=== PATIENT | male | born 1950 | race Caucasian/White ===

== ENCOUNTER → 2016-08-04 | Day surgery (SDC) | payer MEDICARE, OTHER ==
[~2016-08-04] MED LIST: ACET325T9 PO; ASCO10002 PO; CARV6.252 PO; CEPH-264 PO; CHOL400T4 PO; CHOL500050 PO; CYAN10005 PO; CYCL5TAB PO; ERGO500012 PO; FERR-26 PO; FERR325T31 PO; FURO40TA4 PO; HYDR-965 PO; HYDR-971 PO; HYDR1TAB10 PO; IV RINGERS,LACTATED 1000ML 1,000 ML IV SCH; MUPI15CR TP; NAPH1POW2 PO; OXYC5TAB PO; PANT40TA3 PO; PANT40TA5 PO; PROPOFOL 20 ML IV ONE; SODIUM TETRADECYL SULFATE IV ONE; SPIR25TA PO; SUCR1TAB29 PO; VITA200C PO; VITA80003 PO; ZINC50TA33 PO
--- NOTE | 2016-08-04 10:49 | PDOC1 ---
HISTORY & PHYSICAL H&P Jett Feliciano [id number] 1950 07/23/2016 02:20 PM 06/15 [place] [employer] [facility], [facility] OUR PATIENTS COME FIRST [address] [place] [id number] Ph. [phone] Patient: Jett Feliciano Date of : 1950 Date: 07/23/2016 2:20 PM Historian: significant other Visit Type: Consult This 66 year old male presents for Esophageal Varices. History of Present Illness: 1. Esophageal Varices Patient has been followed at [place] for liver transplant. Was recommended to have follow up for esophageal varices. Was treated with Band ligation in last June. No complain now. INTAKE COMMENTS: Intake Comments: Nurses Notes: Pt is here today for a recall EGD. Pt last EGD was 03/2015. pt does have a history of Colon Cancer. 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 2012 Esophageal varices Thrombocytopenia DIAGNOSTICS HISTORY: Test Ordered Interpretation Result completed Colonoscopy 03/15/2005 Normal Polyp 03/15/2005 Colonoscopy 03/15/2006 Abnormal Mass, Polyp 03/15/[address] 08/13/2006 Normal Chest, Abdomen & Pelvis 08/13/2006 Test Ordered Ordering Comments Modifier Colonoscopy 03/15/2005 Gastroenterology Colonoscopy 03/15/[address] 08/13/2006 Diagnostic Images Medications (Active): Started Medication Directions Instruction Stopped 08/02/2013 ergocalciferol (vitamin D2) 50,000 unit capsule take 1 by Oral route twice a week 08/02/2013 iron ER 325 mg (65 mg iron) capsule,extended release take 1 Tablet by Oral route three times a day 03/27/2016 Lasix 40 mg tablet take 1 tablet by oral route every day 06/02/2016 [place] 7.5 mg-325 mg tablet take 1 tablet by ORAL route 2 times every day as needed for pain 10/22/2015 Phos-NaK 280 mg-160 mg-250 mg oral powder packet Mix one packet in liquid and drink twice daily 09/22/2014 potassium chloride ER 20 mEq tablet,extended release take 1 tablet by oral route 2 times every day with food 07/16/2016 Protonix 40 mg tablet,delayed release TAKE ONE TABLET BY MOUTH ONCE DAILY 01/25/2014 Saline Solution as directed 07/16/2016 Ventolin HFA 90 mcg/actuation aerosol inhaler inhale 2 puff by Inhalation route every 4 - 6 hours as needed 03/27/2016 vitamin A 8,000 unit capsule take 1 capsule by oral route every day vitamin B12 1,000 mcg-folic acid 400 mcg sublingual tablet 01/25/2014 Vitamin C 1,000 mg tablet take 1 by Oral route every day 03/27/2016 Vitamin D3 1,000 unit tablet take 1 tablet by mouth daily 08/02/2013 vitamin E 400 unit capsule take 1 by Oral route every day 03/27/2016 zinc gluconate 50 mg tablet take 1 tablet by mouth daily Allergies: Ingredient Reaction Medication Name Comment NO KNOWN ALLERGIES REVIEW OF SYSTEMS System Neg/Pos Details Constitutional Negative Chills, fever, malaise and weight loss. ENMT Negative Sore throat. Eyes Negative Double vision. Respiratory Negative Dyspnea and wheezing. Cardio Negative Chest pain and irregular heartbeat/palpitations. GI Positive See HPI. GI Negative See HPI. Negative Dysuria and hematuria. Endocrine Negative Cold intolerance and heat intolerance. Psych Negative Anxiety. Integumentary Negative Hives and rash. MS Negative Joint pain. Hank/Lymph Negative Easy bleeding and easy bruising. Allergic/Immuno Negative Food allergies. VITAL SIGNS Time BP mm/Hg Pulse /min Resp /min Temp F Ht ft Ht in Ht cm Wt lb Wt kg BMI kg/ m2 BSA m2 O2 Sat% 2:21 PM 82 16 97.6 5.0 5.00 165.10 160.60 72.847 26.72 95 Time Measured by 2:21 PM Talya Major PHYSICAL EXAM: Exam Findings Details Constitutional Normal Well developed. Eyes Normal Conjunctiva - Right: Normal, Left: Normal. Sclera - Right: Normal, Left: Normal. Nasopharynx Normal Lips/teeth/gums - Normal. Neck Exam Normal Inspection - Normal. Thyroid gland - Normal. Respiratory Normal Inspection - Normal. Auscultation - Normal. Cardiovascular Normal Regular rate and rhythm. No murmurs, gallops, or rubs. Vascular Normal Pulses - Carotids: Normal, Femoral: Normal, Dorsalis pedis: Normal. Abdomen Normal Inspection - Normal. Anterior palpation - No guarding. No abdominal tenderness. No hepatic enlargement. No splenic enlargement. No hernia. No ascites. Skin Normal Inspection - Normal. Extremity Normal No edema. Psychiatric * Oriented to time, place, person and situation. Psychiatric Normal Appropriate mood and effect. Assessment/Plan # Detail Type Description 1. Assessment Other cirrhosis of liver (K74.69). 2. Assessment Secondary esophageal varices without bleeding (I85.10). Patient Plan schedule EGD at [facility] Plan Orders Further diagnostic evaluations ordered today include(s) EGD to be performed today. He is to schedule a follow-up visit with Abner Wiley MD upon completion of work-up Electronically signed by: Abner Wiley MD 07/23/2016 05:16 PM Document generated by: Abner Wiley 07/23/2016 05:16 PM Nikolay Bar MD, Family Practice; Quinten Cardenas MD Internal Medicine; Bryan Soria MD, Internal Medicine; Jose De Jesus Wiley MD Internal Medicine; Abner Wiley MD, Gastroenterology; Keaton Willson MD, Rheumatology, S. Andrew Morgan, Physical Medicine/Handyab Rainer Green APRN ------ 08/04/16 Patient seen and examined. No change in H&P. ABNER WILEY MD Aug 04, 2016 10:49
--- NOTE | 2016-08-04 11:00 | PDOC4 ---
GI OP Report - Dr. De Luna Date/Time DATE: 08/04/16 TIME: 10:50 Attending Physician Abner De Luna MD Referring Physician Indications Follow-up of esophageal varices Pre-Op See the Anesthesia note for documentation of the administered medications Procedures Upper GI endoscopy with band ligation Findings - Grade II esophageal varices. completely eradicated. Banded. - Gastritis. - Normal examined duodenum. - No specimens collected. Plan - Discharge patient to home. - Resume regular diet. - Continue present medications. - Repeat the upper endoscopy in 4 weeks for endoscopic band ligation. ABNER DE LUNA MD Aug 04, 2016 11:00
[2016-08-04 11:10] VITALS: BP 132/63
== END | disposition home or self-care (01) ==
LOC: ENDOS 09:32
PROVIDERS: ATTEND Internal Medicine Gastroenterology
DX: I85.00 Esophageal varices without bleeding (principal); K29.70 Gastritis, unspecified, without bleeding; J44.9 Chronic obstructive pulmonary disease, unspecified; K21.9 Gastro-esophageal reflux disease without esophagitis; D64.9 Anemia, unspecified; Z87.01 Personal history of pneumonia (recurrent); Z87.891 Personal history of nicotine dependence; Z85.038 Personal history of other malignant neoplasm of large intestine
CPT/HCPCS: 43244; J2704

== ENCOUNTER → 2016-09-17 | Outpatient (CLI) | payer MEDICARE, OTHER ==
[2016-09-12 07:19] VITALS: BP 140/66
[~2016-09-17] MED LIST changes: +IOHEXOL 300 MG/ML 100ML VIAL. IV ONE; -IV RINGERS,LACTATED 1000ML 1,000 ML IV SCH; -PROPOFOL 20 ML IV ONE; -SODIUM TETRADECYL SULFATE IV ONE
--- NOTE | 2016-09-17 09:13 | KCIC ---
PQRS STATEMENT One or more of the following individualized dose reduction techniques were utilized for this study: 1.Automated exposure control 2.Adjustment of the mA and/or kV according to patient size 3.Use of iterative reconstruction technique CT NECK WITH CONTRAST HISTORY:Reason For Study Reason: CANCER OF EXTERNAL EAR, RT SIDE / Spl. Instructions: 95cc Omni 300 -pt premedicated, Hx colon CA and melanoma / History: COMPARISON: None TECHNIQUE: 2.5 mm contiguous axial images were obtained from the region of the paranasal sinuses through the thoracic inlet after the administration of iodinated intravenous contrast material. Additional sagittal and coronal reconstructions were performed. FINDINGS: There is abnormal soft tissue thickening just anterior to the external auditory canal. This area of soft tissue thickening measures 3.1 centimeters AP by 1.2 centimeters transverse by 3.2 centimeters craniocaudal. The mass approaches the superior margin of the right parotid gland. Posteriorly, the mass appears to approach the wall of the external auditory canal. There is no adenopathy. Visualized intra cranial contents show no obvious abnormality. Globes and orbits are within normal limits. Paranasal sinuses and mastoid air cells are clear. Submandibular glands and thyroid are within normal limits. Lung apices are clear. There are carotid artery calcifications bilaterally. Impression: - There is a 3.1 x 1.2 x 3.2 centimeter mass just anterior to the right ear. No cervical adenopathy is appreciated. Electronically signed by: Abebe Patrick (Sep 17, 2016 09:12:02)
== END | disposition home or self-care (01) ==
LOC: KCIC CT 08:09
PROVIDERS: ATTEND Otolaryngology
DX: C44.222 Squamous cell carcinoma of skin of right ear and external auricular canal (principal)
CPT/HCPCS: 70491; Q9967; 82565

== ENCOUNTER 2016-10-22 16:40 | Emergency (ER) | payer MEDICARE, OTHER ==
[~2016-10-22] VITALS: Ht 167.6 cm; Wt 69.9 kg
[~2016-10-22 16:40] MED LIST changes: -IOHEXOL 300 MG/ML 100ML VIAL. IV ONE
[2016-10-22] MEDS ORDERED: OXYC5TAB PO (17:14)
[2016-10-22] MEDS ORDERED: ONDA4TAB10 PO (17:14)
--- NOTE | 2016-10-22 17:14 | PHYS DOC ---
Past Medical History Past Medical History: Cancer, Liver Disease Additional Past Medical Histor: MULTIPLE BLEEDING STOMACH ULCERS, esoph varices , Past Surgical History: Cancer Surgery Additional Past Surgical Histo: COLON RESECTION, COLON REMOVAL, ILEOSTOMY, NOSE REBUILT AFTER A CARCINOMA Alcohol Use: None Drug Use: None Adult General Chief Complaint Chief Complaint: NAUSEA/VOMITING/DIARRHA HPI HPI Patient is a 66 year old male presenting to the emergency department for evaluation of dry heaving and intermittent back pain when he has the dry heaving sensation. He says this has been going on for 2-3 days he says it is mostly associated with taking his Levaquin. He is taking Levaquin for a skin cellulitis on his right jaw/mastoid area. He had skin surgery several weeks ago and the cultures came back and [facility] placed him on Levaquin. He says that he has been taking for 7 days and he is supposed to take it 3 more days but cannot tolerate it any longer. He denies any fevers chills chest pain shortness of breath diaphoresis or vomiting. He is in no obvious distress with normal vital signs. Review of Systems Review of Systems Constitutional: Denies fever or chills [] Respiratory: Denies cough or shortness of breath [] Cardiovascular: No additional information not addressed in HPI [] GI: Denies abdominal pain. + nausea. No vomiting, bloody stools or diarrhea [] : Denies dysuria or hematuria [] Musculoskeletal: + back pain. No joint pain [] Current Medications Current Medications Current Medications Medications (Trade) Dose Ordered Sig/Hari Start Time Stop Time Status Last Admin Dose Admin Ceftriaxone Sodium (Rocephin Im) 1 gm 1X ONCE 10/22/16 17:15 10/22/16 17:16 DC Ondansetron HCl (Zofran Odt) 8 mg 1X ONCE 10/22/16 17:15 10/22/16 17:16 DC Oxycodone HCl (Roxicodone) 5 mg 1X ONCE 10/22/16 17:15 10/22/16 17:16 DC Allergies Allergies Allergies Coded Allergies Type Severity Reaction Last Updated Verified Iodinated Contrast Media - Oral and Allergy Severe Hives, PT OK WITH PREMED Yes lactose Allergy Intermediate 09/12/16 Yes acetaminophen Adverse Reaction Severe bleeding 09/12/16 Yes ibuprofen Adverse Reaction Severe bleeding 09/12/16 Yes Physical Exam Physical Exam Constitutional: Well developed, well nourished, no acute distress, non-toxic appearance. [] Cardiovascular:Heart rate regular rhythm, no murmur [] Lungs & Thorax: Bilateral breath sounds clear to auscultation [] Abdomen: Bowel sounds normal, soft, no tenderness, no masses, no pulsatile masses. [] Skin: Right sided facial plastic surgery area with no obvious warmth tenderness or drainage. There is no active cellulitis Back: No tenderness, no CVA tenderness. Current Patient Data Vital Signs Vital Signs Date Time Temp Pulse Resp B/P (MAP) Pulse Ox O2 Delivery O2 Flow Rate FiO2 10/22/16 16:52 98.0 80 16 164/74 (104) 98 Room Air 98.0 EKG EKG [] Radiology/Procedures Radiology/Procedures [] Course & Med Decision Making Course & Med Decision Making Patient with normal vital signs and appears quite well and is just having some side effects from the medications he is on. I told him to go ahead and stop the medication for now but contact his physicians at [facility] and I will give him a dose of IM Rocephin and then treat him with oxycodone for pain and Zofran for nausea. Patient aware and agreeable with plan for discharge and verbalized understanding of the need for short-term follow-up and strict ER return precautions discussed, worsening pain fevers vomiting or other general concerns. Dragon Disclaimer Dragon Disclaimer This electronic medical record was generated, in whole or in part, using a voice recognition dictation system. Departure Departure Impression: Primary Impression: Nausea alone Disposition: 01 HOME, SELF-CARE Condition: GOOD Referrals: KAMRYN PADGETT (PCP) Patient Instructions: Nausea, Adult Scripts Oxycodone Hcl (OXYCODONE HCL) 5 Mg Tablet 1 TAB PO TID Y for PAIN, #20 TAB Prov: ABEL GRIFFIN DO 10/22/16 Ondansetron (ZOFRAN ODT) 4 Mg Tab.rapdis 4 MG PO BID Y for NAUSEA/VOMITING, #20 TAB Prov: ABEL GRIFFIN DO 10/22/16 ABEL GRIFFIN DO October 22, 2016 17:14
[2016-10-22] MEDS ORDERED: ONDANSETRON ODT 4 MG TAB.RAPDIS. PO ONE (17:15)
[2016-10-22] MEDS ORDERED: oxyCODONE IR 5 MG TABLET PO ONE (17:15)
[2016-10-22] MEDS ORDERED: cefTRIAXone IM 1 GM VIAL IM ONE (17:15)
[2016-10-22 18:07] VITALS: BP 147/71
== END 2016-10-22 18:20 | disposition home or self-care (01) ==
LOC: ER 16:40
DX: R11.0 Nausea (principal); T37.8X5A Adverse effect of other specified systemic anti-infectives and antiparasitics, initial encounter; M54.9 Dorsalgia, unspecified; Z88.6 Allergy status to analgesic agent; Z91.041 Radiographic dye allergy status; Z91.011 Allergy to milk products; Y92.89 Other specified places as the place of occurrence of the external cause
CPT/HCPCS: 96372; 99283; J0696; Q0162

== ENCOUNTER 2016-11-28 08:50 | Observation (INO) | payer MEDICARE, OTHER ==
[~2016-11-28] VITALS: Ht 167.6 cm; Wt 61.8 kg
[~2016-11-28 08:50] MED LIST changes: -CHOL400T4 PO; +CHOL400T55 PO; -ERGO500012 PO; +ERGO500027 PO; +FERR-36 PO; -FERR325T31 PO; +ONDA4TAB10 PO; -SUCR1TAB29 PO; +SUCR1TAB35 PO
[2016-11-28 09:24] LABS: BILIRUBIN,URINE NEGATIVE (NEG); GLUCOSE,URINE NEGATIVE (NEG); NITRITE,URINE NEGATIVE (NEG); PROTEIN,URINE NEGATIVE (NEG-TRACE); UROBILINOGEN,URINE 0.2 mg/dL (0.2 mg/dL)
[2016-11-28 09:35] LABS: BASO % 1 % (0-3); EOS % 2 % (0-3); HEMATOCRIT 30.1 % (39.0-53.0); HEMOGLOBIN 9.8 g/dL (13.0-17.5); LYMPH # 0.3 x10^3/uL (1.0-4.8); LYMPH % 12 % (24-48); MEAN CORPUSCULAR HEMOGLOBIN 31 pg (25-35); MEAN CORPUSCULAR HGB CONC 33 g/dL (31-37); MEAN CORPUSCULAR VOLUME 94 fL (79-100); MONO % 7 % (0-9); NEUT % 78 % (31-73); PLATELET COUNT 26 x10^3/uL (140-400); RED BLOOD COUNT 3.21 x10^6/uL (4.30-5.70); WHITE BLOOD COUNT 2.4 x10^3/uL (4.0-11.0)
[2016-11-28] MEDS ORDERED: HYDROmorphone 2 MG/ML VIAL IV PRN (09:45)
[2016-11-28] MEDS ORDERED: ONDANSETRON PF 4 MG/2 ML VIAL. IV ONE (09:45)
[2016-11-28 09:47] LABS: BACTERIA,URINE 0 /HPF (0-FEW); RBC,URINE 0 /HPF (0-2); SQUAMOUS EPITHELIAL CELL,UR FEW /LPF; WBC,URINE 0 /HPF (0-4)
[2016-11-28 10:00] LABS: CALCIUM 8.3 mg/dL (8.5-10.1); CREATININE 1.2 mg/dL (0.7-1.3); GFR 60.4; POTASSIUM 3.5 mmol/L (3.5-5.1)
--- NOTE | 2016-11-28 10:01 | EKG ---
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
[2016-11-28 10:07] LABS: ALBUMIN 2.2 g/dL (3.4-5.0); ALBUMIN/GLOBULIN RATIO 0.6 (1.0-1.7); TOTAL BILIRUBIN 1.3 mg/dL (0.2-1.0); TOTAL PROTEIN 6.1 g/dL (6.4-8.2)
--- NOTE | 2016-11-28 10:24 | PHYS DOC ---
Past Medical History Past Medical History: Cancer, COPD, Liver Disease Additional Past Medical Histor: MULTIPLE BLEEDING STOMACH ULCERS, esoph varices , Past Surgical History: Cancer Surgery Additional Past Surgical Histo: COLON RESECTION, ILEOSTOMY, NOSE REBUILT AFTER A CARCINOMA Alcohol Use: None Drug Use: None Adult General Chief Complaint Chief Complaint: NAUSEA/VOMITING/DIARRHA HPI HPI 66-year-old male presenting to the emergency department today with epigastric abdominal pain that started yesterday. It is nonradiating intermittent mildly alleviated by Zofran. He chronically takes IV infusions every day 2 L of saline with potassium. He also has a history of skin cancer for which she is currently undergoing organization of probable chemotherapy and possible surgery. He has a history of cirrhosis and esophageal varices but denies blood in his stools or vomiting. Review of systems is negative for chest pain shortness of breath fevers chills. All other review of systems is negative unless otherwise noted in history of present illness. Pertinent physical exam findings demonstrated a mildly cachectic male with a ulceration on the right temporal region that he reports is his squamous skin cell cancer. Abdomen has an ileostomy and the patient reports a history of colectomy. Abdomen is soft and nontender otherwise. Lungs are clear to auscultation bilaterally. Otherwise unremarkable exam. ED course: 66-year-old gentleman with history of squamous cell carcinoma and status post colectomy who presents the emergency department with epigastric abdominal pain. Afebrile with a normal pulse on examination and triage. Blood work shows leukopenia with anemia. Urinalysis unremarkable. FOB neg. CT abd shows effusion. Patient is not hypoxic and is not short of breath either. Mainly epigastric abdominal pain. The patient was then admitted for further evaluation workup and care. I discussed the case with the patient's primary care physician Dr. Soria. At this point in time, the patient does not meet inpatient criteria. GI consult placed. Review of Systems Review of Systems SEE ABOVE. Current Medications Current Medications Current Medications Medications (Trade) Dose Ordered Sig/Hari Start Time Stop Time Status Last Admin Dose Admin Hydromorphone HCl (Dilaudid) 0.5 mg PRN Q1HR PRN 11/28/16 09:45 11/28/16 09:49 0.5 MG Ondansetron HCl (Zofran) 4 mg 1X ONCE 11/28/16 09:45 11/28/16 09:46 DC 11/28/16 09:48 4 MG Allergies Allergies Allergies Coded Allergies Type Severity Reaction Last Updated Verified Iodinated Contrast Media - Oral and Allergy Severe Hives, PT OK WITH PREMED Yes lactose Allergy Intermediate 09/12/16 Yes acetaminophen Adverse Reaction Severe bleeding 09/12/16 Yes ibuprofen Adverse Reaction Severe bleeding 09/12/16 Yes Physical Exam Physical Exam Constitutional: Well developed, no acute distress, non-toxic appearance. HENT: Normocephalic, atraumatic, bilateral external ears normal, oropharynx moist, no oral exudate. See above Eyes: PERRLA, EOMI, conjunctiva normal, no discharge. Neck: Normal range of motion, no tenderness, supple, no stridor. [] Cardiovascular:Heart rate regular rhythm, no murmur Lungs & Thorax: Bilateral breath sounds clear to auscultation [] Abdomen: Bowel sounds normal, soft, no tenderness, no masses, no pulsatile masses. Colectomy present with normal consistency stool present. Skin: Warm, dry, no erythema, no rash. Back: No tenderness, no CVA tenderness. [] Extremities: No tenderness, no cyanosis, no clubbing, ROM intact, no edema. Neurologic: Alert and oriented X 3, normal motor function, normal sensory function, no focal deficits noted. Psychologic: Affect normal, judgement normal, mood normal. [] Current Patient Data Vital Signs Vital Signs Date Time Temp Pulse Resp B/P (MAP) Pulse Ox O2 Delivery O2 Flow Rate FiO2 11/28/16 08:59 97.8 81 18 158/77 (104) 96 Room Air 97.8 Lab Values Laboratory Tests Test 11/28/16 09:10 11/28/16 09:15 Urine Collection Type Unknown Urine Color Yellow Urine Clarity Clear Urine pH 5.0 Urine Specific [place] 1.010 Urine Protein Negative mg/dL (NEG-TRACE) Urine Glucose (UA) Negative mg/dL (NEG) Urine Ketones (Stick) Negative mg/dL (NEG) Urine Blood Negative (NEG) Urine Nitrite Negative (NEG) Urine Bilirubin Negative (NEG) Urine Urobilinogen Dipstick 0.2 mg/dL (0.2 mg/dL) Urine Leukocyte Esterase Negative (NEG) Urine RBC 0 /HPF (0-2) Urine WBC 0 /HPF (0-4) Urine Squamous Epithelial Cells Few /LPF Urine Bacteria 0 /HPF (0-FEW) Urine Mucus Mod /LPF White Blood Count 2.4 x10^3/uL (4.0-11.0) L Red Blood Count 3.21 x10^6/uL (4.30-5.70) L Hemoglobin 9.8 g/dL (13.0-17.5) L Hematocrit 30.1 % (39.0-53.0) L Mean Corpuscular Volume 94 fL (79-100) Mean Corpuscular Hemoglobin 31 pg (25-35) Mean Corpuscular Hemoglobin Concent 33 g/dL (31-37) Red Cell Distribution Width 17.0 % (11.5-14.5) H Platelet Count 26 x10^3/uL (140-400) L Neutrophils (%) (Auto) 78 % (31-73) H Lymphocytes (%) (Auto) 12 % (24-48) L Monocytes (%) (Auto) 7 % (0-9) Eosinophils (%) (Auto) 2 % (0-3) Basophils (%) (Auto) 1 % (0-3) Neutrophils # (Auto) 1.9 x10^3uL (1.8-7.7) Lymphocytes # (Auto) 0.3 x10^3/uL (1.0-4.8) L Monocytes # (Auto) 0.2 x10^3/uL (0.0-1.1) Eosinophils # (Auto) 0.0 x10^3/uL (0.0-0.7) Basophils # (Auto) 0.0 x10^3/uL (0.0-0.2) Segmented Neutrophils % 76 % (35-66) H Band Neutrophils % 4 % (0-9) Lymphocytes % 11 % (24-48) L Monocytes % 9 % (0-10) Platelet Estimate Decreased (ADEQUATE) Large Platelets Present Sodium Level 141 mmol/L (136-145) Potassium Level 3.5 mmol/L (3.5-5.1) Chloride Level 108 mmol/L (98-107) H Carbon Dioxide Level 27 mmol/L (21-32) Anion Gap 6 (6-14) Blood Urea Nitrogen 8 mg/dL (8-26) Creatinine 1.2 mg/dL (0.7-1.3) Estimated GFR (Cockcroft-Gault) 60.4 BUN/Creatinine Ratio 7 (6-20) Glucose Level 130 mg/dL (70-99) H Calcium Level 8.3 mg/dL (8.5-10.1) L Total Bilirubin 1.3 mg/dL (0.2-1.0) H Aspartate Amino Transferase (AST) 21 U/L (15-37) Alanine Aminotransferase (ALT) 11 U/L (16-63) L Alkaline Phosphatase 67 U/L (46-116) Troponin I Quantitative 0.029 ng/mL (0.000-0.055) Total Protein 6.1 g/dL (6.4-8.2) L Albumin 2.2 g/dL (3.4-5.0) L Albumin/Globulin Ratio 0.6 (1.0-1.7) L Lipase 103 U/L (73-393) Laboratory Tests 11/28/16 09:15 Laboratory Tests 11/28/16 09:15 EKG EKG [] EKG shows sinus rhythm with a regular rate. T-wave inversion in lead 3 and lead V1. Nonspecific. ST segments congruent. Reviewed by myself. Radiology/Procedures Radiology/Procedures [] Course & Med Decision Making Course & Med Decision Making Pertinent Labs and Imaging studies reviewed. (See chart for details) [] Dragon Disclaimer Dragon Disclaimer This electronic medical record was generated, in whole or in part, using a voice recognition dictation system. Departure Departure Impression: Primary Impression: Nausea & vomiting Additional Impressions: Squamous cell cancer of skin of right cheek History of colectomy Disposition: ADMITTED INPATIENT Admitting Physician: Bryan Soria Condition: STABLE Referrals: KAMRYN PADGETT (PCP) Problem Qualifiers ADIEL GALLO MD Nov 28, 2016 10:24
[2016-11-28] MEDS ORDERED: ONDANSETRON PF 4 MG/2 ML VIAL. IV PRN (10:30)
[2016-11-28] MEDS ORDERED: IV NORMAL SALINE 500ML BAG 500 ML IV ONE (10:30)
--- NOTE | 2016-11-28 10:43 | ACF ---
Admission Forms Criteria VOMITING Clinical Indications for Admission to Inpatient Care ( Place 'X' for any and all applicable criteria): Admission is indicated for 1 or more of the following(1)(2)(3): [ ]I. Complete or partial gastrointestinal obstruction [ ]II. Vomiting due to significant metabolic derangement (eg, severe hypercalcemia, diabetic ketoacidosis) [ ]III. Other cause of vomiting requiring hospitalization (eg, poisoning, increased intracranial pressure) [X]IV. Inpatient admission required rather than observation care because of 1 or more of the following [ ]i) Hemodynamic instability [X]ii) Vomiting that is severe or persistent indicated by 1 or more of the following 1) Numerous episodes of vomiting in past 24hours (eg, every 1 to 2 hours) 2) Suggests severe underlying cause or complication (eg , projectile, feculent, bilious, coffee ground, bloody) 3) Appropriate antiemetic treatment (eg, repeated oral or parenteral dosing) does not sufficiently reduce vomiting within 12 to 24 hours of treatment [X]4) Treatment regimen necessary to adequately control vomiting requires inpatient level of care (eg, not immediately available in outpatient setting) [ ]iii) Severe electrolyte abnormalities requiring inpatient care [ ]iv) Severe pain requiring acute inpatient management( Continuous or frequent (eg, every 2 to 4 hours) parental analgesics or analgesic regimen that can only be performed or initiated in inpatient setting) [ ]v) High fever or infection requiring inpatient admission as indicated by 1 or more of the following(7)(8): [ ]1) Appropriate outpatient or observation care antimicrobial treatment unavailable, not effective, or not feasible [ ]2) Documented bacteremia [ ]3) Temp >104.9 degrees F (40.5 degrees C) (oral) [ ]4) Temp >103.1 degrees F (39.5 C) (oral) or <96.8 degrees F (36 C) (rectal) that does not respond to all emergency treatment measures [ ]vi) Acute renal failure [ ]vii) IV fluid required rather than oral rehydration to replace significant on going losses (greater than 3 L/m2 per day) [ ]viii) Parenteral nutrition regimen that must be implemented on inpatient basis [ ]ix) Other condition, treatment or monitoring requiring inpatient admission Extended stay beyond goal length of stay may be needed for(1)(4): [ ]a) Severe vomiting [ ]b) Persistent vomiting, vital sign changes, severe electrolyte imbalance , or diagnosed cause of vomiting that requires continued hospitalization (eg, gastrointestinal obstruction , increased intracranial pressure) [ ]c) Surgery to treat identified causes of vomiting (eg, bowel obstruction , intracranial process) [ ]d) Comorbid illness that requires inpatient care (eg, acute heart failure , renal failure) [ ]e) Need for inpatient endoscopy The original [employer] content created by [employer] has been revised. The portions of the content which have been revised are identified through the use of italic text or in bold, and [facility] has neither reviewed nor approved the modified material. All other unmodified content is copyright [employer]. Please see references footnoted in the original [facility] edition 2016 Admission Criteria Met?: Yes ANGELO GILLIAM Nov 28, 2016 10:43
[2016-11-28 11:12] LABS: NEG OBC FOB NEG; POS OBC FOB POS
[2016-11-28 11:22] LABS: PLT ESTIMATE DECREASED (ADEQUATE)
--- NOTE | 2016-11-28 11:44 | RAD ---
CT scan of the abdomen and pelvis without contrast 11/28/2016 Clinical history: Epigastric pain. Technique: Unenhanced, contiguous, 5 mm axial sections were obtained through the abdomen and pelvis. One or more of the following individualized dose reduction techniques were utilized for this study: 1. Automated exposure control. 2. Adjustment of the mA and/or kV according to patient size. 3. Use of iterative reconstruction technique. Findings: Comparison study is dated 03/27/2015. Images through the lung bases demonstrate borderline cardiomegaly. There is a [id number] sized left pleural effusion which has increased in size since the previous examination. There is a minimal right pleural effusion. Dependent subsegmental atelectasis is seen involving both lower lobes, left greater than right. The liver is small with a nodular contour suggestive of cirrhosis. No focal abnormality of the liver is seen. The spleen is moderately enlarged measuring 18 cm in length. The pancreas, and adrenal glands are within normal limits. A 3 mm nonobstructing calculus is seen involving the lower pole of the right kidney. Several rounded low-attenuation lesions are seen scattered throughout both kidneys. These measure 2 to 6.3 cm in size. There are felt to most likely represent cysts. They have not significantly changed. Moderate atherosclerotic calcification of the abdominal aorta is seen. The abdominal aorta tapers normally. An IVC filter is noted in place. Multiple surgical clips are seen throughout the abdomen. The patient is status post subtotal colectomy. An ileostomy is seen within the right lower quadrant of the abdomen. There is no evidence of bowel obstruction. The gallbladder is well-distended. A small amount of ascites is seen surrounding the liver and spleen. Images through the pelvis demonstrate the urinary bladder distended with urine. Calcifications are seen within the pelvis consistent with phleboliths. No significant free fluid is seen. Degenerative changes are seen involving the lower thoracic and throughout the lumbar spine and both hips. Impression: 1. Moderate size left pleural effusion which has increased in size since the previous examination. 2. Findings consistent with cirrhosis of the liver. Moderate splenomegaly. Small amount of ascites is seen within the abdomen.
[2016-11-28] MEDS ORDERED: FERR-26 PO (12:12)
[2016-11-28] MEDS ORDERED: oxyCODONE IR 5 MG TABLET PO PRN (12:15)
[2016-11-28] MEDS ORDERED: ONDANSETRON ODT 4 MG TAB.RAPDIS. PO PRN (12:15)
[2016-11-28 12:27] VITALS: BP 143/65
[2016-11-28] MEDS: MORPHINE SULFATE 2 MG/ML DISP.SYRIN. IV PRN ×3 (12:45→20:49)
[2016-11-28] MEDS: IV NORMAL SALINE 1000ML BAG 1,000 ML IV SCH ×3 (12:46→21:51)
[2016-11-28] MEDS: FERROUS SULFATE 325 MG TABLET. PO SCH (14:00)
[2016-11-28 15:00] VITALS: BP 128/64
--- NOTE | 2016-11-28 15:20 | PDOC2 ---
GI CONSULT Reason For Consult: Epigastric pain HPI: HPI: 66 y/o male w/ PMH significant for cirrhosis, esophageal varices, and PUD. Yesterday morning had nausea, Zofran helped. No vomiting. Hasn't been eating much, no weight loss. [place] queasy again today, Zofran didn't help at home, evaluated in ER and admitted. Feeling better now. Last EGD in 07/[address] Wiley w/ Grade II varices (banded), gastritis, and normal duodenum. Takes Lasix and Protonix, no reflux/heartburn or dysphagia. Some LLE swelling. No abd pain currently, earlier had some back pain that "went to the liver." Additional h/o colon cancer and diverticular disease s/p colon resections ( essentially colectomy) w/ ileostomy. Output unchanged. On B12 and iron, no NSAIDs. No obvious bleeding. Also has recurrent skin cancer (found out two days ago), to start radiation next week. 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, skin cancer (recurrent - to start radiation next week) FH: Family History: Cancer, CAD Social History: Smoke: 1 pack per day ALCOHOL: other (significant in the past, now sober) Drugs: None ROS: GEN: Denies fevers, chills, sweats HEENT: Denies blurred vision, sore throat CV: Denies chest pain RESP: Denies shortness of air, cough GI: Per HPI : Denies hematuria, dysuria ENDO: Denies weight changes NEURO: Denies confusion, dizziness MSK: LLE swelling SKIN: Denies jaundice, pruritus Vitals: Vitals: Vital Signs Date Time Temp Pulse Resp B/P (MAP) Pulse Ox O2 Delivery O2 Flow Rate FiO2 11/28/16 12:45 Room Air 11/28/16 12:27 97.5 71 20 143/65 (91 95 97.5 Labs: Labs: Laboratory Tests Test 11/28/16 09:10 11/28/16 09:15 11/28/16 10:50 Urine Collection Type Unknown Urine Color Yellow Urine Clarity Clear Urine pH 5.0 Urine Specific [place] 1.010 Urine Protein Negative mg/dL (NEG-TRACE) Urine Glucose (UA) Negative mg/dL (NEG) Urine Ketones (Stick) Negative mg/dL (NEG) Urine Blood Negative (NEG) Urine Nitrite Negative (NEG) Urine Bilirubin Negative (NEG) Urine Urobilinogen Dipstick 0.2 mg/dL (0.2 mg/dL) Urine Leukocyte Esterase Negative (NEG) Urine RBC 0 /HPF (0-2) Urine WBC 0 /HPF (0-4) Urine Squamous Epithelial Cells Few /LPF Urine Bacteria 0 /HPF (0-FEW) Urine Mucus Mod /LPF White Blood Count 2.4 x10^3/uL (4.0-11.0) Red Blood Count 3.21 x10^6/uL (4.30-5.70) Hemoglobin 9.8 g/dL (13.0-17.5) Hematocrit 30.1 % (39.0-53.0) Mean Corpuscular Volume 94 fL (79-100) Mean Corpuscular Hemoglobin 31 pg (25-35) Mean Corpuscular Hemoglobin Concent 33 g/dL (31-37) Red Cell Distribution Width 17.0 % (11.5-14.5) Platelet Count 26 x10^3/uL (140-400) Neutrophils (%) (Auto) 78 % (31-73) Lymphocytes (%) (Auto) 12 % (24-48) Monocytes (%) (Auto) 7 % (0-9) Eosinophils (%) (Auto) 2 % (0-3) Basophils (%) (Auto) 1 % (0-3) Neutrophils # (Auto) 1.9 x10^3uL (1.8-7.7) Lymphocytes # (Auto) 0.3 x10^3/uL (1.0-4.8) Monocytes # (Auto) 0.2 x10^3/uL (0.0-1.1) Eosinophils # (Auto) 0.0 x10^3/uL (0.0-0.7) Basophils # (Auto) 0.0 x10^3/uL (0.0-0.2) Segmented Neutrophils % 76 % (35-66) Band Neutrophils % 4 % (0-9) Lymphocytes % 11 % (24-48) Monocytes % 9 % (0-10) Platelet Estimate Decreased (ADEQUATE) Large Platelets Present Sodium Level 141 mmol/L (136-145) Potassium Level 3.5 mmol/L (3.5-5.1) Chloride Level 108 mmol/L (98-107) Carbon Dioxide Level 27 mmol/L (21-32) Anion Gap 6 (6-14) Blood Urea Nitrogen 8 mg/dL (8-26) Creatinine 1.2 mg/dL (0.7-1.3) Estimated GFR (Cockcroft-Gault) 60.4 BUN/Creatinine Ratio 7 (6-20) Glucose Level 130 mg/dL (70-99) Calcium Level 8.3 mg/dL (8.5-10.1) Total Bilirubin 1.3 mg/dL (0.2-1.0) Aspartate Amino Transf (AST/SGOT) 21 U/L (15-37) Alanine Aminotransferase (ALT/SGPT) 11 U/L (16-63) Alkaline Phosphatase 67 U/L (46-116) Troponin I Quantitative 0.029 ng/mL (0.000-0.055) Total Protein 6.1 g/dL (6.4-8.2) Albumin 2.2 g/dL (3.4-5.0) Albumin/Globulin Ratio 0.6 (1.0-1.7) Lipase 103 U/L (73-393) Stool Occult Blood Negative (NEG) Allergies: Coded Allergies: Iodinated Contrast Media - Oral and (Verified Allergy, Severe, Hives, PT OK WITH PREMED, 09/12/16) lactose (Verified Allergy, Intermediate, 09/12/16) acetaminophen (Verified Adverse Reaction, Severe, bleeding, 09/12/16) ibuprofen (Verified Adverse Reaction, Severe, bleeding, 09/12/16) Medications: Current Medications Medications (Trade) Dose Ordered Sig/Hari Route PRN Reason Start Time Stop Time Status Last Admin Dose Admin Hydromorphone HCl (Dilaudid) 0.5 mg PRN Q1HR PRN IV SEVERE PAIN 11/28/16 09:45 11/28/16 09:49 Ondansetron HCl (Zofran) 4 mg 1X ONCE IV 11/28/16 09:45 11/28/16 09:46 DC 11/28/16 09:48 Sodium Chloride 500 ml @ 500 mls/hr 1X ONCE IV 11/28/16 10:30 11/28/16 11:29 DC 11/28/16 10:48 Morphine Sulfate 2 mg PRN Q2HR PRN IV PAIN 11/28/16 10:30 11/29/16 10:29 11/28/16 12:45 Sodium Chloride 1,000 ml @ 125 mls/hr Q8H IV 11/28/16 10:29 11/29/16 10:28 11/28/16 12:46 Imaging: Imaging: CT A/P Impression: 1. Moderate size left pleural effusion which has increased in size since the previous examination. 2. Findings consistent with cirrhosis of the liver. Moderate splenomegaly. Small amount of ascites is seen within the abdomen. PE: GEN: NAD HEENT: Atraumatic, PERRL LUNGS: decreased anteriorly HEART: RRR ABD: NABS, soft, non-tender, not much distention EXTREMITY: LLE edema SKIN: No rashes, no jaundice NEURO/PSYCH: A & O 3 A/P: A/P: Nausea/dyspepsia Cirrhosis, h/o esophageal varices -banded 07/2016 -CT w/ cirrhosis as above H/o PUD -on PPI QD H/o colon cancer, diverticular disease s/p resections w/ ileostomy YESI - stable Pleural effusion -per primary Recurrent skin cancer -- Will review w/ Dr. Zhang. ?GERD - continue PPI JAYNA FENG Nov 28, 2016 15:20
[2016-11-28 19:00] VITALS: BP 141/62
[2016-11-28 23:11] VITALS: BP 134/60
[2016-11-29] MEDS: MORPHINE SULFATE 2 MG/ML DISP.SYRIN. IV PRN ×3 (00:56→08:18)
[2016-11-29 03:00] VITALS: BP_SYST 124; BP_SYST 133; BP_DIAS 50; BP_DIAS 61
[2016-11-29 05:04] LABS: BASO % 1 % (0-3); EOS % 3 % (0-3); HEMATOCRIT 28.4 % (39.0-53.0); HEMOGLOBIN 9.2 g/dL (13.0-17.5); LYMPH # 0.3 x10^3/uL (1.0-4.8); LYMPH % 18 % (24-48); MEAN CORPUSCULAR HEMOGLOBIN 30 pg (25-35); MEAN CORPUSCULAR HGB CONC 32 g/dL (31-37); MEAN CORPUSCULAR VOLUME 93 fL (79-100); MONO % 7 % (0-9); NEUT % 72 % (31-73); RED BLOOD COUNT 3.05 x10^6/uL (4.30-5.70); RED CELL DISTRIBUTION WIDTH 16.4 % (11.5-14.5)
[2016-11-29 05:43] LABS: CALCIUM 8.2 mg/dL (8.5-10.1); CREATININE 1.1 mg/dL (0.7-1.3); GFR 66.8; POTASSIUM 3.8 mmol/L (3.5-5.1)
[2016-11-29 06:53] LABS: PLATELET COUNT 24 x10^3/uL (140-400); WHITE BLOOD COUNT 1.7 x10^3/uL (4.0-11.0)
[2016-11-29 07:00] VITALS: BP 133/68
[2016-11-29] MEDS ORDERED: PANTOPRAZOLE 40 MG TABLET.DR. PO SCH (07:30)
[2016-11-29] MEDS ORDERED: CYANOCOBALAMIN (VITAMIN B-12) 1,000 MCG TABLET. PO SCH (09:00)
[2016-11-29] MEDS ORDERED: ZINC AMINO ACID CHELATE PO SCH (09:00)
[2016-11-29] MEDS ORDERED: ASCORBIC ACID 500 MG TABLET PO SCH (09:00)
[2016-11-29] MEDS ORDERED: VITAMIN A 10,000 UNIT CAPSULE. PO SCH (09:00)
[2016-11-29] MEDS ORDERED: VITAMIN E 200 UNIT CAPSULE. PO SCH (09:00)
[2016-11-29] MEDS: FERROUS SULFATE 325 MG TABLET. PO SCH (09:05)
[2016-11-29 11:00] VITALS: BP 142/80
--- NOTE | 2016-11-29 11:50 | PDOC ---
G I PROGRESS NOTE Subjective No GI complaints. Wonder if will get to go home. Physical Exam Lungs clear. RRR Abdomen with some ascites. Review of Relevant I have reviewed the following items sera (where applicable) has been applied. Labs Laboratory Tests Test 11/28/16 09:10 11/28/16 09:15 11/28/16 10:50 11/29/16 04:40 Urine Collection Type Unknown Urine Color Yellow Urine Clarity Clear Urine pH 5.0 Urine Specific [place] 1.010 Urine Protein Negative mg/dL (NEG-TRACE) Urine Glucose (UA) Negative mg/dL (NEG) Urine Ketones (Stick) Negative mg/dL (NEG) Urine Blood Negative (NEG) Urine Nitrite Negative (NEG) Urine Bilirubin Negative (NEG) Urine Urobilinogen Dipstick 0.2 mg/dL (0.2 mg/dL) Urine Leukocyte Esterase Negative (NEG) Urine RBC 0 /HPF (0-2) Urine WBC 0 /HPF (0-4) Urine Squamous Epithelial Cells Few /LPF Urine Bacteria 0 /HPF (0-FEW) Urine Mucus Mod /LPF White Blood Count 2.4 x10^3/uL (4.0-11.0) 1.7 x10^3/uL (4.0-11.0) Red Blood Count 3.21 x10^6/uL (4.30-5.70) 3.05 x10^6/uL (4.30-5.70) Hemoglobin 9.8 g/dL (13.0-17.5) 9.2 g/dL (13.0-17.5) Hematocrit 30.1 % (39.0-53.0) 28.4 % (39.0-53.0) Mean Corpuscular Volume 94 fL (79-100) 93 fL (79-100) Mean Corpuscular Hemoglobin 31 pg (25-35) 30 pg (25-35) Mean Corpuscular Hemoglobin Concent 33 g/dL (31-37) 32 g/dL (31-37) Red Cell Distribution Width 17.0 % (11.5-14.5) 16.4 % (11.5-14.5) Platelet Count 26 x10^3/uL (140-400) 24 x10^3/uL (140-400) Neutrophils (%) (Auto) 78 % (31-73) 72 % (31-73) Lymphocytes (%) (Auto) 12 % (24-48) 18 % (24-48) Monocytes (%) (Auto) 7 % (0-9) 7 % (0-9) Eosinophils (%) (Auto) 2 % (0-3) 3 % (0-3) Basophils (%) (Auto) 1 % (0-3) 1 % (0-3) Neutrophils # (Auto) 1.9 x10^3uL (1.8-7.7) 1.2 x10^3uL (1.8-7.7) Lymphocytes # (Auto) 0.3 x10^3/uL (1.0-4.8) 0.3 x10^3/uL (1.0-4.8) Monocytes # (Auto) 0.2 x10^3/uL (0.0-1.1) 0.1 x10^3/uL (0.0-1.1) Eosinophils # (Auto) 0.0 x10^3/uL (0.0-0.7) 0.0 x10^3/uL (0.0-0.7) Basophils # (Auto) 0.0 x10^3/uL (0.0-0.2) 0.0 x10^3/uL (0.0-0.2) Segmented Neutrophils % 76 % (35-66) Band Neutrophils % 4 % (0-9) Lymphocytes % 11 % (24-48) Monocytes % 9 % (0-10) Platelet Estimate Decreased (ADEQUATE) Large Platelets Present Sodium Level 141 mmol/L (136-145) 142 mmol/L (136-145) Potassium Level 3.5 mmol/L (3.5-5.1) 3.8 mmol/L (3.5-5.1) Chloride Level 108 mmol/L (98-107) 110 mmol/L (98-107) Carbon Dioxide Level 27 mmol/L (21-32) 28 mmol/L (21-32) Anion Gap 6 (6-14) 4 (6-14) Blood Urea Nitrogen 8 mg/dL (8-26) 6 mg/dL (8-26) Creatinine 1.2 mg/dL (0.7-1.3) 1.1 mg/dL (0.7-1.3) Estimated GFR (Cockcroft-Gault) 60.4 66.8 BUN/Creatinine Ratio 7 (6-20) Glucose Level 130 mg/dL (70-99) 77 mg/dL (70-99) Calcium Level 8.3 mg/dL (8.5-10.1) 8.2 mg/dL (8.5-10.1) Total Bilirubin 1.3 mg/dL (0.2-1.0) Aspartate Amino Transf (AST/SGOT) 21 U/L (15-37) Alanine Aminotransferase (ALT/SGPT) 11 U/L (16-63) Alkaline Phosphatase 67 U/L (46-116) Troponin I Quantitative 0.029 ng/mL (0.000-0.055) Total Protein 6.1 g/dL (6.4-8.2) Albumin 2.2 g/dL (3.4-5.0) Albumin/Globulin Ratio 0.6 (1.0-1.7) Lipase 103 U/L (73-393) Stool Occult Blood Negative (NEG) Laboratory Tests Test 11/29/16 04:40 White Blood Count 1.7 x10^3/uL (4.0-11.0) Red Blood Count 3.05 x10^6/uL (4.30-5.70) Hemoglobin 9.2 g/dL (13.0-17.5) Hematocrit 28.4 % (39.0-53.0) Mean Corpuscular Volume 93 fL (79-100) Mean Corpuscular Hemoglobin 30 pg (25-35) Mean Corpuscular Hemoglobin Concent 32 g/dL (31-37) Red Cell Distribution Width 16.4 % (11.5-14.5) Platelet Count 24 x10^3/uL (140-400) Neutrophils (%) (Auto) 72 % (31-73) Lymphocytes (%) (Auto) 18 % (24-48) Monocytes (%) (Auto) 7 % (0-9) Eosinophils (%) (Auto) 3 % (0-3) Basophils (%) (Auto) 1 % (0-3) Neutrophils # (Auto) 1.2 x10^3uL (1.8-7.7) Lymphocytes # (Auto) 0.3 x10^3/uL (1.0-4.8) Monocytes # (Auto) 0.1 x10^3/uL (0.0-1.1) Eosinophils # (Auto) 0.0 x10^3/uL (0.0-0.7) Basophils # (Auto) 0.0 x10^3/uL (0.0-0.2) Sodium Level 142 mmol/L (136-145) Potassium Level 3.8 mmol/L (3.5-5.1) Chloride Level 110 mmol/L (98-107) Carbon Dioxide Level 28 mmol/L (21-32) Anion Gap 4 (6-14) Blood Urea Nitrogen 6 mg/dL (8-26) Creatinine 1.1 mg/dL (0.7-1.3) Estimated GFR (Cockcroft-Gault) 66.8 Glucose Level 77 mg/dL (70-99) Calcium Level 8.2 mg/dL (8.5-10.1) Medications Current Medications Hydromorphone HCl (Dilaudid) 0.5 mg PRN Q1HR PRN IV SEVERE PAIN Last administered on 11/28/16 09:49; Start 11/28/16 at 09:45 Ondansetron HCl (Zofran) 4 mg 1X ONCE IV Last administered on 11/28/16 09:48 ; Start 11/28/16 at 09:45; Stop 11/28/16 at 09:46; Status DC Sodium Chloride 500 ml @ 500 mls/hr 1X ONCE IV Last administered on 10:48; Start 11/28/16 at 10:30; Stop 11/28/16 at 11:29; Status DC Ondansetron HCl (Zofran) 4 mg PRN Q8HRS PRN IV NAUSEA/VOMITING; Start 11/28/16 at 10:30; Stop 11/29/16 at 10:29; Status DC Morphine Sulfate 2 mg PRN Q2HR PRN IV PAIN Last administered on 11/29/16 08:18 ; Start 11/28/16 at 10:30; Stop 11/29/16 at 10:29; Status DC Sodium Chloride 1,000 ml @ 125 mls/hr Q8H IV Last administered on 11/28/16 21 :51; Start 11/28/16 at 10:29; Stop 11/29/16 at 10:28; Status DC Cyanocobalamin (Vitamin B-12) 1,000 mcg DAILY PO Last administered on 09:05; Start 11/29/16 at 09:00 Ergocalciferol (Vitamin D2) 50,000 unit WEEKLY PO ; Start 12/05/16 at 09:00 Ferrous Sulfate (Feosol) 325 mg BID92 PO Last administered on 11/29/16 09:05; Start 11/28/16 at 14:00 Ondansetron HCl (Zofran Odt) 4 mg BID PRN PO NAUSEA/VOMITING; Start 11/28/16 at 12:15 Oxycodone HCl (Roxicodone) 5 mg TID PRN PO PAIN; Start 11/28/16 at 12:15 Pantoprazole Sodium (Protonix) 40 mg DAILYAC PO Last administered on 11/29/16 08:17; Start 11/29/16 at 07:30 Vitamin E 400 unit DAILY PO Last administered on 11/29/16 09:05; Start at 09:00 Ascorbic Acid (Vitamin C) 1,000 mg DAILY PO Last administered on 11/29/16 09: 05; Start 11/29/16 at 09:00 Vitamin A 10,000 unit DAILY PO Last administered on 11/29/16 09:05; Start at 09:00 Non-Formulary Medication 50 mg DAILY PO ; Start 11/29/16 at 09:00; Status UNV Active Scripts Active Oxycodone Hcl 5 Mg Tablet 1 Tab PO TID PRN Zofran Odt (Ondansetron) 4 Mg Tab.rapdis 4 Mg PO BID PRN Protonix (Pantoprazole Sodium) 40 Mg Tablet.dr 1 Tab PO DAILY Vitamin D2 (Ergocalciferol (Vitamin D2)) 50,000 Unit Capsule 50,000 Unit PO WEEKLY Reported Ferrous Sulfate 325 Mg Tablet 325 Mg PO BID92 [place] 5-325 Tablet (Acetaminophen/Hydrocodone Bitart) 1 Each Tablet 1 Tab PO BID PRN Phos-Nak Packet (Naph,Mb-Db/K Ph,Mbdb) 1 Each Powd.pack 1 Each PO BID Zinc (Zinc Amino Acid Chelate) 50 Mg Tablet 50 Mg PO DAILY Vitamin B-12 (Cyanocobalamin (Vitamin B-12)) 1,000 Mcg Tablet 1 Tab PO DAILY Vitamin C (Ascorbic Acid) 1,000 Mg Tablet 1,000 Mg PO DAILY Vitamin E 200 Unit Capsule 400 Unit PO DAILY Vitamin A 8,000 Unit Capsule 8,000 Unit PO DAILY Vitals/I & O Vital Sign - Last 24 Hours 11/28/16 11/28/16 11/28/16 11/28/16 12:27 12:45 15:00 17:11 Temp 97.5 98.0 97.5 98.0 Pulse 71 70 Resp 20 20 B/P (MAP) 143/65 (91) 128/64 (85) Pulse Ox 95 94 O2 Delivery Room Air Room Air Room Air Room Air 11/28/16 11/28/16 11/28/16 11/28/16 19:00 20:00 20:12 20:49 Temp 97.8 97.8 Pulse 71 Resp 20 B/P (MAP) 141/62 (88) Pulse Ox 95 95 O2 Delivery Room Air Room Air Room Air Room Air 11/28/16 11/29/16 11/29/16 11/29/16 23:11 00:56 03:00 03:48 Temp 97.9 98.2 97.9 98.2 Pulse 72 74 Resp 20 20 B/P (MAP) 134/60 (84) 133/61 (85) Pulse Ox 93 93 94 94 O2 Delivery Room Air Room Air Room Air Room Air 11/29/16 11/29/16 11/29/16 11/29/16 04:20 07:00 08:00 08:18 Temp 97.8 97.8 Pulse 75 Resp 20 18 B/P (MAP) 133/68 (89) Pulse Ox 94 94 O2 Delivery Room Air Room Air Room Air 11/29/16 11/29/16 08:48 11:00 Temp 97.8 97.8 Pulse 74 Resp 18 18 B/P (MAP) 142/80 (100) Pulse Ox 94 O2 Delivery Room Air Room Air Intake and Output 11/28/16 11/28/16 11/29/16 15:00 23:00 07:00 Intake Total 500 ml 240 ml Output Total 775 ml Balance 500 ml -535 ml Problem List Problems Medical Problems: (1) Nausea & vomiting Status: Acute (2) 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 Plan of Care: Continue current Tx, Mgmt Plan of Care Note Home OK with me at your discretion. JADEN ZIMMERMAN MD Nov 29, 2016 11:50
--- NOTE | 2016-11-29 12:51 | PDOC ---
Provider Note Provider Note Pt seen .H&P and discharge summary dictated. #[id number] ALFREDO GUERIN MD Nov 29, 2016 12:51
--- NOTE | 2016-11-29 13:47 | HP ---
ADMIT DATE: 11/29/2016 REASON FOR ADMISSION TO THE HOSPITAL: Nausea, vomiting, abdominal pain. CONSULTATIONS: Dr. Zhang, GI. PROCEDURES DONE: CT of the abdomen and pelvis. HOSPITAL COURSE: The patient is a 66-year-old patient of Dr. Bar, has a history of cirrhosis of the liver. He has cellulitis and he also had a colon cancer, colectomy; had partial small bowel obstructions in the past. He is on home TPN and colostomy bag. He was having nausea and vomiting, came to the Emergency Room and he had a CT of the abdomen and pelvis shows ascites, splenomegaly and cirrhosis of the liver and the patient also developed a left pleural effusion. The patient was feeling better, was on clear liquid diet and he is much better now, anxious to go home. PAST MEDICAL HISTORY: Had a colon cancer, status post multiple colon resections and ileostomy. He also has cirrhosis of the liver, splenomegaly, pancytopenia, esophageal varices, skin cancer, left inguinal tumor with excision, skin cancer in the nose. PAST SURGICAL HISTORY: As mentioned above, ileostomy had multiple surgeries in the abdomen, he had a surgery done in the groin, skin cancer. SOCIAL HISTORY: Smokes 1 pack, still smokes. Denies alcohol, used to drink heavily in the past. Denies any street drugs. The patient is on narcotic pain medications. ALLERGIES: CONTRAST, TYLENOL, IBUPROFEN, LACTULOSE. MEDICATIONS AT HOME: Vitamin C 1000 daily, B12 1000 mcg daily, vitamin D50 units once a week, iron 325 twice a day, Zofran for nausea, oxycodone 5 mg 3 times daily, Protonix 40 mg daily, vitamin A 8000 units daily, vitamin E 200 units daily, zinc 50 mg daily. FAMILY HISTORY: Unremarkable. SOCIAL HISTORY: Lives at home with his . REVIEW OF SYSTEMS: CARDIAC: No chest pain. LUNGS: No cough or sputum. GASTROINTESTINAL: No nausea or vomiting and the ____ ileostomy bag loose stools. No fever. Rest of 14 systems was reviewed and negative. OBJECTIVE: GENERAL: The patient is comfortable, not in any distress, able to tolerate diet. VITAL SIGNS: At the time of admission shows temperature 97, pulse 81, respirations 18, blood pressure 158/77, 96% on room air. HEENT: Head is atraumatic. Pupils equal. Oral cavity: No congestion. NECK: Supple. Thyroid not enlarged, not elevated. The patient has a Groshong catheter for TPN. CARDIOVASCULAR: S1, S2. LUNGS: Clear. ABDOMEN: Soft, has a surgery in the midline, has ileostomy in the right side and soft, nontender. Bowel sounds present. EXTERNAL GENITALIA: No Crane. RECTAL: Deferred. EXTREMITIES: The patient has a scar in the left groin from previous sebaceous tumor excised from the groin. EXTREMITIES: No calf tenderness. No edema. Pulses 1+. NEUROLOGIC: No focal deficit noted. Moving all extremities. LABORATORY DATA: Shows a white count of 2.4, came down to 1.7 today, hemoglobin 9.8, platelets 26. Electrolytes show sodium 141, potassium 3.5, chloride 106, bicarbonate 27, BUN 8, creatinine 1.2. LFTs were normal. Urine was negative for infection. Stool for occult blood was negative, had a CT of the abdomen and pelvis shows a moderate sized left pleural effusion, cirrhosis of the liver, splenomegaly, ascites. FINAL IMPRESSION: 1. Nausea and vomiting, self-limited, improved. 2. History of cirrhosis of the liver with esophageal varices, splenomegaly. 3. History of colon cancer, had a colectomy, has ileostomy. 4. History of skin cancer. 5. History of sebaceous dermoid carcinoma of the groin, had a surgical resection many years ago. 6. Pancytopenia secondary to splenomegaly, low white count and platelets, stable HOSPITAL COURSE: The patient was started on clear liquid diet, was given IV fluids, Zofran, condition improved. No more nausea. He is anxious to go home. The patient was discharged. Follow with PCP. ALFREDO GUERIN MD DR: KENDAL/steven JOB#: [id number] / [id number] KAMRYN Cervantes
[2016-12-05] MEDS ORDERED: ERGOCALCIFEROL (VITAMIN D2) 50,000 UNIT CAPSULE. PO SCH (09:00)
== END 2016-11-29 13:37 | disposition home or self-care (01) ==
LOC: ER 08:50 → 4 NORTH 10:26
PROVIDERS: ADMIT Internal Medicine; ATTEND Internal Medicine
DX: R11.2 Nausea with vomiting, unspecified (principal); R16.1 Splenomegaly, not elsewhere classified; D61.818 Other pancytopenia; F17.210 Nicotine dependence, cigarettes, uncomplicated; K74.60 Unspecified cirrhosis of liver; Z90.49 Acquired absence of other specified parts of digestive tract; Z85.038 Personal history of other malignant neoplasm of large intestine; Z87.11 Personal history of peptic ulcer disease; Z85.828 Personal history of other malignant neoplasm of skin; Z93.3 Colostomy status
CPT/HCPCS: 36415; 74176; 80048; 80053; 81001; 82274; 83690; 84484; 85007; 85027; 93005; 96361; 96374; 96375; 96376; 99285; G0378; J1170; J2270; J2405; J7030; J7040; G0379

== ENCOUNTER → 2017-09-02 | Outpatient (CLI) | payer MEDICARE, OTHER | END | disposition home or self-care (01) | LOC: KCIC MRI 08:13 | DX: K74.60 Unspecified cirrhosis of liver (principal); K76.6 Portal hypertension; K76.89 Other specified diseases of liver; R16.1 Splenomegaly, not elsewhere classified | CPT/HCPCS: 74181 ==

== ENCOUNTER → 2017-11-11 | Outpatient (CLI) | payer MEDICARE, OTHER ==
[2017-11-11] MEDS: GADOBUTROL 10 MMOL/10 ML VIAL IV (09:12)
== END | disposition home or self-care (01) ==
LOC: KCIC MRI 07:45
DX: N28.1 Cyst of kidney, acquired (principal); K74.60 Unspecified cirrhosis of liver; E55.9 Vitamin D deficiency, unspecified; R16.1 Splenomegaly, not elsewhere classified; Z87.891 Personal history of nicotine dependence
CPT/HCPCS: 74183; A9585

== ENCOUNTER → 2018-01-25 | Outpatient (CLI) | payer MEDICARE, OTHER ==
[2017-04-19 11:05] VITALS: BP 143/57
[~2018-01-25] MED LIST changes: +ALBU2.5V14 NEB; +CHOL10003 PO; +CONTRAST GIVEN. MC PRN; -FERR-26 PO; +FERR325T14 PO; +IOHEXOL 300 MG/ML 100ML VIAL. IV ONE; +OXYC10TA PO; -OXYC5TAB PO; +OXYC5TAB95 PO; +SULF-143 PO; +diphenhydrAMINE HCL 25 MG CAPSULE PO ONE
--- NOTE | 2018-01-25 11:20 | RAD ---
EXAM: CT chest with IV contrast CLINICAL HISTORY: LUNG NODULE follow-up COMPARISON: 11/29/2013 TECHNIQUE: CT of the chest following the administration of 60 mL of IV Omnipaque 300 intravenous contrast. Coronal and sagittal reformatted images were generated. FINDINGS: Right IJ vascular catheter tip projects over the right superior cavoatrial junction. The heart is not enlarged. Coronary artery calcifications are seen. Other scarring calcifications of the aorta and main branches are also noted. Bilateral gynecomastia is seen. No axillary lymphadenopathy. A few prominent prevascular lymph nodes are seen. No mediastinal or hilar lymphadenopathy by size criteria. No pleural effusion or pneumothorax. Focal pleural-based nodular densities are seen in the right lower lung, measuring fluid density, possibly focal loculated fluid. A fulfillment representative peripheral right lower lobe nodular density measures 2.1 cm. Platelike opacities bilateral lower lungs, lingula likely subsegmental atelectasis or scarring. The liver is cirrhotic in morphology. Gastroesophageal varices are seen. The spleen is enlarged. Right hepatic lobe cystic lesion is seen better assessed on prior MRI. IVC filter is partially profiled. Right lower quadrant ostomy is partially profiled. Multiple bilateral renal cystic lesions are also seen, better assessed on prior MRI. Bones: Decrease overall density. Otherwise no definite aggressive osseous lesion is identified. IMPRESSION: 1. Multiple right lung base pleural-based lung nodules are seen which measure fluid density centrally. Although these may represent loculated pleural collections, necrotic masses may have similar appearance, particularly given some peripheral enhancement seen on prior MRI. If clinically indicated this can be further assessed by PET/CT or short interval follow-up CT to assess interval change. 2. Hepatic cirrhosis and changes of portal hypertension are better assessed on prior MRI with gastroesophageal varices. Electronically signed by: Adalid Tripp MD (01/25/2018 11:16 AM) [facility]
== END | disposition home or self-care (01) ==
LOC: CT 07:45
PROVIDERS: ATTEND Internal Medicine Hematology & Oncology
DX: R91.8 Other nonspecific abnormal finding of lung field (principal); N62 Hypertrophy of breast; K74.60 Unspecified cirrhosis of liver; R16.1 Splenomegaly, not elsewhere classified; I85.00 Esophageal varices without bleeding; I86.4 Gastric varices; J44.9 Chronic obstructive pulmonary disease, unspecified; Z87.891 Personal history of nicotine dependence
CPT/HCPCS: 71260; Q0163; Q9967

== ENCOUNTER 2018-02-09 06:34 | Outpatient (CLI) | payer MEDICARE, OTHER ==
[~2018-02-09] VITALS: Ht 167.6 cm; Wt 66.7 kg
[~2018-02-09 06:34] MED LIST changes: -CONTRAST GIVEN. MC PRN; -IOHEXOL 300 MG/ML 100ML VIAL. IV ONE; +KCL IV; +MAG IV; +MORP15TA PO; +[UNRECOGNIZED DRUG - OTHER] IV; -diphenhydrAMINE HCL 25 MG CAPSULE PO ONE
[2018-02-09 08:33] LABS: BASO % 1 % (0-3); EOS % 1 % (0-3); HEMATOCRIT 23.2 % (39.0-53.0); HEMOGLOBIN 7.5 g/dL (13.0-17.5); LYMPH # 0.3 x10^3/uL (1.0-4.8); LYMPH % 21 % (24-48); MEAN CORPUSCULAR HEMOGLOBIN 28 pg (25-35); MEAN CORPUSCULAR HGB CONC 32 g/dL (31-37); MEAN CORPUSCULAR VOLUME 85 fL (79-100); MONO # 0.2 x10^3/uL (0.0-1.1); MONO % 12 % (0-9); NEUT % 66 % (31-73); PLATELET COUNT 38 x10^3/uL (140-400); RED BLOOD COUNT 2.72 x10^6/uL (4.30-5.70); RED CELL DISTRIBUTION WIDTH 17.6 % (11.5-14.5)
[2018-02-09 08:35] LABS: WHITE BLOOD COUNT 1.6 x10^3/uL (4.0-11.0)
[2018-02-09] MEDS ORDERED: MORP15TA3 PO (08:41)
[2018-02-09] MEDS ORDERED: OXYC10TA PO (08:41)
[2018-02-09] MEDS ORDERED: FERR325T14 PO (08:41)
[2018-02-09] MEDS ORDERED: ERGO500027 PO (08:52)
[2018-02-09] MEDS ORDERED: ONDA4TAB7 PO (08:52)
[2018-02-09] MEDS ORDERED: FURO-68 PO (08:52)
[2018-02-09] MEDS ORDERED: CHOL500016 PO (08:52)
[2018-02-09] MEDS ORDERED: POTA20TA82 PO (08:52)
[2018-02-09 09:19] VITALS: BP 135/61
[2018-02-09] MEDS ORDERED: IOHEXOL 240 MG/ML 50ML VIAL. ONE (09:51)
[2018-02-09] MEDS ORDERED: LIDOCAINE WITH 8.4% SOD BICARB 3 ML DISP.SYRIN. ONE (09:51)
[2018-02-09 10:01] VITALS: BP 141/69
[2018-02-09 10:19] VITALS: BP 130/60
[2018-02-09 11:47] VITALS: BP 130/60
[2018-02-09 12:00] VITALS: BP 132/65
[2018-02-09 12:03] LABS: % ATYL 1 % (0-0); % LYMPHS 17 % (24-48); % MONOS 6 % (0-10); % SEGS 76 % (35-66)
[2018-02-09 12:08] LABS: ANISOCYTOSIS SLIGHT; PLT ESTIMATE DECREASED (ADEQUATE); POLYCHROMASIA SLIGHT
== END 2018-02-09 13:30 | disposition home or self-care (01) ==
LOC: INTRAD 06:34
PROVIDERS: ATTEND Internal Medicine Hematology & Oncology
DX: R91.8 Other nonspecific abnormal finding of lung field (principal); Z53.8 Procedure and treatment not carried out for other reasons; Z88.6 Allergy status to analgesic agent; Z88.8 Allergy status to other drugs, medicaments and biological substances; Z91.041 Radiographic dye allergy status; Z79.899 Other long term (current) drug therapy
CPT/HCPCS: 36415; 85025; 85049; 86850; 86900; 86901; P9035; 85007

== ENCOUNTER 2018-03-22 08:19 | Outpatient (CLI) | payer MEDICARE, OTHER ==
[~2018-03-22] VITALS: Ht 167.6 cm; Wt 68.9 kg
[2018-03-22] VITALS (17 sets, daily range): BP systolic 101–143; BP diastolic 46–65
[~2018-03-22 08:19] MED LIST changes: +CHOL500016 PO; +FURO-68 PO; +MORP15TA3 PO; +ONDA4TAB7 PO; +POTA20TA82 PO
[2018-03-22] MEDS ORDERED: AVAT20TA PO (08:35)
[2018-03-22 09:04] LABS: BASO % 1 % (0-3); EOS # 0.1 x10^3/uL (0.0-0.7); EOS % 2 % (0-3); HEMATOCRIT 24.6 % (39.0-53.0); HEMOGLOBIN 7.9 g/dL (13.0-17.5); LYMPH # 0.8 x10^3/uL (1.0-4.8); LYMPH % 20 % (24-48); MEAN CORPUSCULAR HEMOGLOBIN 25 pg (25-35); MEAN CORPUSCULAR HGB CONC 32 g/dL (31-37); MEAN CORPUSCULAR VOLUME 78 fL (79-100); MONO # 0.3 x10^3/uL (0.0-1.1); MONO % 8 % (0-9); NEUT # 2.9 x10^3uL (1.8-7.7); NEUT % 70 % (31-73); PLATELET COUNT 50 x10^3/uL (140-400); RED BLOOD COUNT 3.14 x10^6/uL (4.30-5.70); RED CELL DISTRIBUTION WIDTH 17.6 % (11.5-14.5); WHITE BLOOD COUNT 4.1 x10^3/uL (4.0-11.0)
[2018-03-22] MEDS ORDERED: LIDOCAINE WITH 8.4% SOD BICARB 3 ML DISP.SYRIN. ONE (09:13)
[2018-03-22 09:14] LABS: PROTHROMBIN TIME PATIENT 19.1 SEC (11.7-14.0)
[2018-03-22] MEDS ORDERED: fentaNYL PF VIAL 100 MCG/2 ML VIAL ONE (09:16)
[2018-03-22] MEDS ORDERED: MIDAZOLAM HCL/PF 2 MG/2 ML VIAL. ONE (09:16)
[2018-03-22] MEDS ORDERED: LIDOCAINE WITH 8.4% SOD BICARB 3 ML DISP.SYRIN. IJ ONE (10:15)
[2018-03-22] MEDS ORDERED: MIDAZOLAM HCL/PF 2 MG/2 ML VIAL. IV ONE (10:15)
[2018-03-22] MEDS ORDERED: fentaNYL PF VIAL 100 MCG/2 ML VIAL IV ONE (10:15)
[2018-03-22 11:39] LABS: PLT ESTIMATE DECREASED (ADEQUATE)
--- NOTE | 2018-03-22 12:46 | RAD ---
Inspiration expiration chest radiograph 03/22/2018 INDICATION: Post lung biopsy Discussion: Inspiration and expiration chest radiograph demonstrates no pneumothorax. Basilar pulmonary nodule again noted. Right-sided internal jugular Groshong catheter is similar to comparison studies. Diffuse interstitial coarsening is again noted. Heart size is stable. Bony thorax is intact. IMPRESSION: No pneumothorax or other radiographic evidence of complication following the biopsy of right basilar nodule. Electronically signed by: Johnny Martinez MD (03/22/2018 12:43 PM) [id number]
--- NOTE | 2018-03-22 13:46 | RAD ---
CT-guided biopsy, right lower lobe pulmonary nodule. 03/22/2018 Indication: PET avid right lower lobe pulmonary nodule Discussion: The risks and benefits of the procedure were discussed the patient. Informed consent was obtained. Timeout procedure was performed. CT imaging was obtained redemonstrating a subpleural rounded nodule in the basilar right lower lobe. The overlying skin was prepped and draped using sterile barrier technique. 1% lidocaine was administered for local anesthesia. Under intermittent CT guidance a 17-gauge needle was advanced into this nodule. 18-gauge core biopsy samples were obtained. The needle was removed. Manual pressure was held. Sterile dressing was applied. Repeat CT imaging demonstrates no pneumothorax, significant hemorrhage, or other complication. The procedures performed under conscious sedation including continuous cardiopulmonary monitoring via a dedicated sedation nurse. [id number] sedation time: 30 minutes Impression: CT-guided biopsy, right lower lobe pulmonary nodule PQRS Compliance Statement: One or more of the following individualized dose reduction techniques were utilized for this examination: 1. Automated exposure control 2. Adjustment of the mA and/or kV according to patient size 3. Use of iterative reconstruction technique
--- NOTE | 2018-03-24 16:08 | PATHOLOGY ---
[facility] Accession Number: [id number] . 01 Material submitted: . RIGHT LUNG MASS . 01 Clinician provided ICD-10: R91.8 . 01 Clinical history: . Right lung mass . 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 . (JPM:simone; 03/24/2018) MBR/03/24/2018 . 02 Comment: Sections of the right lung mass CT-guided needle biopsy show focal replacement of lung parenchyma by a malignant epithelial neoplasm. The malignant cells are present in solid nests within a reactive desmoplastic stroma. The nests of tumor are composed predominantly of polygonal-shaped basaloid-appearing cells having rounded to ovoid hyperchromatic nuclei and modest amounts of pale eosinophilic cytoplasm. Within the nests of tumor, there are larger cells having abundant eosinophilic vacuolated cytoplasm and possessing enlarged nuclei containing prominent nucleoli. Mitotic figures are present. A panel of immunoperoxidase stains is obtained and yields the following results: . Cytokeratin 7: Subset of tumor cells positive. CK5/6: Basaloid tumor cells positive; larger vacuolated cells negative. P63: Basaloid tumor cells positive; larger vacuolated cells negative. P40: Basaloid tumor cells positive; larger vacuolated cells negative. KATHE: Basaloid tumor cells negative; larger vacuolated cells positive. TTF-1: Tumor cells negative. Brent-EP4: Tumor cells negative. . 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 . The case is also examined by Dr. Daniel, who concurs with the diagnosis. The results are discussed with Dr. Lindsey on 03/24/18. Special stains performed: Immunoperoxidase stains for KATHE, P63, CK5/6, P40, cytokeratin 7, TTF-1, Brent-EP4. . (JPM:front maker; 03/24/2018) . 02 Electronically signed: . Hung Tapia MD, Pathologist NPI- [id number] . 01 Gross description: . The specimen is received in formalin, labeled "Jodie, Jett, right lung mass", are two barahona-white needle cores and its fragments measuring 0.8 x 0.2 x 0.1 cm in aggregate, entirely submitted in A1. ([facility]; 03/22/2018) SHS/SHS . 02 Pathologist provided ICD-10: C78.01 . 02 CPT . 262927, [id number], U13818 Specimen Comment: A courtesy copy of this report has been sent to Specimen Comment: [phone], , . Specimen Comment: Report sent to , DR LINDSEY / DR PADGETT Performed at: 01 [facility] [address], [place], [place] [id number] MD Yordan Sage MD Phone: [phone] Performed at: 02 [facility] [address] [place], [place] [id number] MD Hung Tapia MD Phone: [phone]
== END 2018-03-22 13:01 | disposition home or self-care (01) ==
LOC: INTRAD 08:19
PROVIDERS: ATTEND Internal Medicine Hematology & Oncology
DX: C78.01 Secondary malignant neoplasm of right lung (principal); Z79.899 Other long term (current) drug therapy; Z88.6 Allergy status to analgesic agent; Z88.8 Allergy status to other drugs, medicaments and biological substances; J44.9 Chronic obstructive pulmonary disease, unspecified; Z87.891 Personal history of nicotine dependence; Z91.041 Radiographic dye allergy status; Z85.038 Personal history of other malignant neoplasm of large intestine; Z85.59 Personal history of malignant neoplasm of other urinary tract organ; Z79.01 Long term (current) use of anticoagulants
CPT/HCPCS: 32405; 36415; 71046; 77012; 85025; 85610; J2250; J3010; 99152; 99153

== ENCOUNTER → 2018-07-22 | Outpatient (CLI) | payer MEDICARE, OTHER ==
[2018-03-22 12:15] VITALS: BP 118/50
[~2018-07-22] MED LIST changes: +AVAT20TA PO; +CARV6.2511 PO; -CARV6.252 PO; +HYDR-3164 PO; +HYDR-3165 PO; -HYDR-965 PO; -HYDR-971 PO; +OXYC5TAB4 PO; -OXYC5TAB95 PO
--- NOTE | 2018-07-22 17:39 | RAD ---
Examination: PET W CT SKULL TO MIDTHIGH History: Colon cancer Comparison/Correlation: 01/28/2018 PET/CT exam Technique: PET/CT examination was performed following 10.9 mCi F-18 FDG. Imaging was performed from the level of the lateral ventricles to the proximal thighs. Sagittal and coronal reformatted images were provided. Blood glucose level of 106 mg/dL noted at the time of injection. Findings: Uptake of radiotracer involving the partially visualized head and neck is unremarkable. Incidental note is made of coronary arterial calcifications. Minimal posterior basilar, costophrenic sulcus atelectasis present. Radiotracer is identified within the right central venous infusion port catheter corresponding to injection. At the anterior, lateral right costophrenic angle there is a pleural-based mass lesion with SUV max of 5. This has mildly decreased in size with diameter of up to 1.9 cm representing decreased x 0.4 cm in the interval considering differences in measurement technique. At the posterior right lung base, there is again seen and additional nodule currently measuring 1.4 cm in diameter. The is decrease in size by up to 0.1 cm. SUV max of 3 is noted. Focal pleural thickening of the anterolateral right lower thoracic pleura procedure described as significantly decreased in the interval. Mild uptake is present similar to previous exam. There is a nodule involving the right middle lobe on axial image 124 which appears to be noncalcified measuring 0.4 cm diameter and this is unchanged. No definite uptake but it is very small in size below limits of PET resolution. Minimal right anterior midthoracic bronchiectasis is evident in the interval. Hepatic cirrhosis and spinal megaly again identified. Small amount of ascites about the inferior aspect of the liver is increased in the interval. Hepatic cyst of the right hepatic lobe inferiorly is present. The left fossa is unremarkable. Upper abdominal varices noted. Suture material is present involving anterior midabdominal small bowel. Right lower quadrant ostomy noted. No suspicious abnormal uptake involving the abdomen in the interval. Uptake corresponding to small bowel is physiologic in appearance. Inferior vena cava filter is present. Calcific involvement of the abdominal aorta and iliac arteries noted. Subcutaneous edema is notable involving the diffuse enlarged proximal left thigh. Intense uptake involving the left groin region is again with SUV max of 8.8 and a similar distribution. Overall volume of uptake of the soft tissues in this region is decreased compared to the prior exam. Fluid attenuation structure adjacent to the left abdominal wall at the upper pelvic level is somewhat increased in the interval in size. No suspicious uptake at the site. Impression: Decreased right lung basilar pulmonary nodule sizes and decreased uptake. No new pulmonary masses. Left inguinal region intense uptake is present corresponding to soft tissue distribution is similar prior exam but a decreased volume and intensity. Significance of density above the proximal left thigh laterally is greater in the interval.
== END | disposition home or self-care (01) ==
LOC: PETSC 10:27
PROVIDERS: ATTEND Internal Medicine Hematology & Oncology
DX: C49.A4 Gastrointestinal stromal tumor of large intestine (principal); J98.11 Atelectasis; K76.89 Other specified diseases of liver; R91.1 Solitary pulmonary nodule; I25.10 Atherosclerotic heart disease of native coronary artery without angina pectoris
CPT/HCPCS: 78815; A9552

== ENCOUNTER → 2018-09-13 | Outpatient (CLI) | payer MEDICARE, OTHER ==
[2018-03-22 12:15] VITALS: BP 118/50
[~2018-09-13] MED LIST changes: +DOXY100C2 PO; +PRED50TA PO
--- NOTE | 2018-09-13 16:02 | RAD ---
Chest, PA and Lateral: Technique: PA and lateral views of the chest were obtained. History: Abnormal lung pacheco. Comparison: 04/18/2017. Findings: The heart and pulmonary vasculature appear within normal limits. Mild prominent bilateral interstitial lung markings likely chronic interstitial changes. Mild bibasilar lung airspace opacities likely atelectasis or infiltrates with small bilateral pleural effusions. Groshong catheter again identified.. . Impression: 1. Mild bibasilar lung airspace opacities likely atelectasis or infiltrates with small bilateral pleural effusions. 2. Mild prominent appearing bilateral interstitial lung markings likely chronic interstitial changes.. Electronically signed by: Mu Do MD (09/13/2018 3:59 PM) [id number]
== END | disposition home or self-care (01) ==
LOC: RAD 15:29
PROVIDERS: ATTEND Nurse Practitioner Adult Health
DX: R91.8 Other nonspecific abnormal finding of lung field (principal)
CPT/HCPCS: 71046

== ENCOUNTER 2018-10-11 04:23 | Inpatient (IN) | payer MEDICARE, OTHER ==
[~2018-10-11] VITALS: Ht 167.6 cm; Wt 63.3 kg
[2018-10-11] VITALS (8 sets, daily range): BP systolic 113–133; BP diastolic 50–62
[~2018-10-11 04:23] MED LIST changes: -DOXY100C2 PO; -PRED50TA PO
[2018-10-11] MEDS ORDERED: DEXAMETHASONE 4 MG TABLET PO ONE (05:00)
--- NOTE | 2018-10-11 05:06 | PHYS DOC ---
Past Medical History Past Medical History: Cancer, COPD, Liver Disease Additional Past Medical Histor: MULTIPLE BLEEDING STOMACH ULCERS, esoph v arices, Past Surgical History: Cancer Surgery Additional Past Surgical Histo: COLON RESECTION, ILEOSTOMY, NOSE REBUILT AFTER A CARCINOMA Alcohol Use: None Drug Use: None Adult General Chief Complaint Chief Complaint: COUGH HPI HPI Patient is a 68 year old male with a history of lung cancer currently on keytruda presents to the ED for hemoptysis. Patient states this morning he was sitting on his chair when he coughed up blood. Additionally, he had some blood run down his left nostril. He denies any pain or shortness of breath. Patient denies any fevers, chills, or sick contacts. Review of Systems Review of Systems Constitutional: Denies fever or chills Eyes: Denies redness or eye pain HENT: Denies nasal congestion or sore throat Respiratory: Reports cough and hemoptysis. Denies shortness of breath Cardiovascular: Denies chest pain or palpitations GI: Denies abdominal pain, nausea, vomiting, : Denies dysuria or hematuria Musculoskeletal: Denies back pain or joint pain Integument: Denies rash or skin lesions Neurologic: Denies headache or focal weakness. Complete systems were reviewed and found to be within normal limits, except as documented in this note. Current Medications Current Medications Current Medications Medications (Trade) Dose Ordered Sig/Hari Start Time Stop Time Status Last Admin Dose Admin Dexamethasone (Decadron) 10 mg 1X ONCE 10/11/18 05:00 10/11/18 05:01 DC 10/11/18 05:47 10 MG Fentanyl Citrate (Fentanyl 2ml Vial) 50 mcg PRN Q2HRS PRN 10/11/18 06:45 Ondansetron HCl (Zofran) 4 mg PRN Q8HRS PRN 10/11/18 06:45 10/12/18 06:44 Sodium Chloride 1,000 ml @ 1,000 mls/hr 1X ONCE 10/11/18 05:30 10/11/18 05:30 DC Allergies Allergies Allergies Coded Allergies Type Severity Reaction Last Updated Verified Iodinated Contrast- Oral and IV Dye Allergy Intermediate Hives, PT OK WITH PREMED 03/22/18 Yes lactose Allergy Intermediate 02/09/18 Yes acetaminophen Adverse Reaction Severe bleeding 02/09/18 Yes ibuprofen Adverse Reaction Severe bleeding 8/28/18 Yes Physical Exam Physical Exam Constitutional: No acute distress, non-toxic appearance. [] HENT: Normocephalic, atraumatic, bilateral external ears normal, oropharynx moist, no oral exudates, nose normal. [] Eyes: EOMI, conjunctiva normal [] Neck: Normal range of motion, supple. [] Cardiovascular:Heart rate regular rhythm, no murmur [] Lungs & Thorax: Bilateral breath sounds clear to auscultation [] Abdomen: Bowel sounds normal, soft, no tenderness. [] Skin: Warm, dry. [] Back: No tenderness, no CVA tenderness. [] Extremities: No clubbing, no edema. [] Neurologic: Alert and oriented X 3, no focal deficits noted. [] Psychologic: Affect normal, mood normal. [] Current Patient Data Vital Signs Vital Signs Date Time Temp Pulse Resp B/P (MAP) Pulse Ox O2 Delivery O2 Flow Rate FiO2 10/11/18 04:45 97.6 94 25 139/60 (86) 98 Room Air 97.6 Lab Values Laboratory Tests Test 10/11/18 05:40 White Blood Count 1.5 x10^3/uL (4.0-11.0) *L Red Blood Count 2.07 x10^6/uL (4.30-5.70) L Hemoglobin 6.0 g/dL (13.0-17.5) *L Hematocrit 18.6 % (39.0-53.0) *L Mean Corpuscular Volume 90 fL (79-100) Mean Corpuscular Hemoglobin 29 pg (25-35) Mean Corpuscular Hemoglobin Concent 32 g/dL (31-37) Red Cell Distribution Width 19.9 % (11.5-14.5) H Platelet Count 29 x10^3/uL (140-400) L Neutrophils (%) (Auto) 82 % (31-73) H Lymphocytes (%) (Auto) 9 % (24-48) L Monocytes (%) (Auto) 7 % (0-9) Eosinophils (%) (Auto) 1 % (0-3) Basophils (%) (Auto) 0 % (0-3) Neutrophils # (Auto) 1.2 x10^3uL (1.8-7.7) L Lymphocytes # (Auto) 0.1 x10^3/uL (1.0-4.8) L Monocytes # (Auto) 0.1 x10^3/uL (0.0-1.1) Eosinophils # (Auto) 0.0 x10^3/uL (0.0-0.7) Basophils # (Auto) 0.0 x10^3/uL (0.0-0.2) Platelet Estimate Pending Prothrombin Time 18.3 SEC (11.7-14.0) H Prothrombin Time INR 1.6 (0.8-1.1) H PTT 30 SEC (24-38) D-Dimer (Lindy) 1.55 ug/mlFEU (0.00-0.50) H Sodium Level 143 mmol/L (136-145) Potassium Level 4.0 mmol/L (3.5-5.1) Chloride Level 110 mmol/L (98-107) H Carbon Dioxide Level 27 mmol/L (21-32) Anion Gap 6 (6-14) Blood Urea Nitrogen 28 mg/dL (8-26) H Creatinine 1.0 mg/dL (0.7-1.3) Estimated GFR (Cockcroft-Gault) 74.1 BUN/Creatinine Ratio 28 (6-20) H Glucose Level 107 mg/dL (70-99) H Lactic Acid Level 0.8 mmol/L (0.4-2.0) Calcium Level 8.4 mg/dL (8.5-10.1) L Total Bilirubin 0.8 mg/dL (0.2-1.0) Aspartate Amino Transferase (AST) 27 U/L (15-37) Alanine Aminotransferase (ALT) 13 U/L (16-63) L Alkaline Phosphatase 91 U/L (46-116) Creatine Kinase 51 U/L (39-308) Creatine Kinase MB (Mass) 0.5 ng/mL (0.0-3.6) Creatine Kinase MB Relative Index % (0-4) Troponin I Quantitative 0.019 ng/mL (0.000-0.055) SI-Kmq-Z-Type Natriuretic Peptide 154 pg/mL (0-124) H Total Protein 5.5 g/dL (6.4-8.2) L Albumin 1.8 g/dL (3.4-5.0) L Albumin/Globulin Ratio 0.5 (1.0-1.7) L Laboratory Tests 10/11/18 05:40 Laboratory Tests 10/11/18 05:40 EKG EKG EKG @0528, normal sinus rhythm, rate of 87 bpm, no ST elevation or signs of ischemia Radiology/Procedures Radiology/Procedures []PROCEDURE: CHEST PA & LATERAL CHEST PA LATERAL CLINICAL INDICATION: cough COMPARISON: 09/13/2018 FINDINGS: Heart is normal in size. Lungs are hyperinflated with increase in interstitial opacities. Stable elevation of left hemidiaphragm. Stable right-sided central line with its tip in the SVC. No pneumothorax or pleural effusion. Visualized bony thorax is within normal limits. IMPRESSION: COPD changes. Superimposed atypical/viral infection not ruled out. Electronically signed by: Timothy Wiley DO (10/11/2018 6:26 AM) [facility] Course & Med Decision Making Course & Med Decision Making [] Dragon Disclaimer Dragon Disclaimer This electronic medical record was generated, in whole or in part, using a voice recognition dictation system. Departure Departure Impression: Primary Impression: Acute DVT (deep venous thrombosis) Additional Impressions: Pancytopenia Elevated d-dimer Hemoptysis Hx of cancer of lung Disposition: ADMITTED INPATIENT Admitting Physician: Bryan Soria Condition: GUARDED Referrals: KAMRYN PADGETT (PCP) Critical Care Time Critical care time was 30 minutes which includes time at bedside, spent in discussion of patient's care with specialists and/or family members, with interpretation of laboratory and/or radiological studies and is exclusive of procedures. Problem Qualifiers Primary Impression: Acute DVT (deep venous thrombosis) DVT location: lower extremity Affected thrombotic vein of extremity: unspecified vein of extremity Laterality: left Qualified Codes: I82.402 - Acute embolism and thrombosis of unspecified deep veins of left lower extremity JADEN PERES DO Oct 11, 2018 05:06
[2018-10-11] MEDS ORDERED: IV NORMAL SALINE 1000ML BAG 1,000 ML IV ONE (05:30)
[2018-10-11 05:55] LABS: BASO % 0 % (0-3); EOS % 1 % (0-3); LYMPH # 0.1 x10^3/uL (1.0-4.8); LYMPH % 9 % (24-48); MEAN CORPUSCULAR HEMOGLOBIN 29 pg (25-35); MEAN CORPUSCULAR HGB CONC 32 g/dL (31-37); MEAN CORPUSCULAR VOLUME 90 fL (79-100); MONO # 0.1 x10^3/uL (0.0-1.1); MONO % 7 % (0-9); NEUT # 1.2 x10^3uL (1.8-7.7); NEUT % 82 % (31-73); PLATELET COUNT 29 x10^3/uL (140-400); RED BLOOD COUNT 2.07 x10^6/uL (4.30-5.70); RED CELL DISTRIBUTION WIDTH 19.9 % (11.5-14.5)
[2018-10-11 06:00] LABS: CALCIUM 8.4 mg/dL (8.5-10.1); GFR 74.1
[2018-10-11 06:04] LABS: PROTHROMBIN TIME PATIENT 18.3 SEC (11.7-14.0)
[2018-10-11 06:06] LABS: ALBUMIN 1.8 g/dL (3.4-5.0); ALBUMIN/GLOBULIN RATIO 0.5 (1.0-1.7); TOTAL BILIRUBIN 0.8 mg/dL (0.2-1.0); TOTAL PROTEIN 5.5 g/dL (6.4-8.2); WHITE BLOOD COUNT 1.5 x10^3/uL (4.0-11.0)
[2018-10-11 06:07] LABS: HEMATOCRIT 18.6 % (39.0-53.0)
[2018-10-11 06:10] LABS: D-DIMER 1.55 ug/mlFEU (0.00-0.50)
[2018-10-11 06:14] LABS: CREATINE KINASE 51 U/L (39-308)
--- NOTE | 2018-10-11 06:29 | RAD ---
CHEST PA LATERAL CLINICAL INDICATION: cough COMPARISON: 09/13/2018 FINDINGS: Heart is normal in size. Lungs are hyperinflated with increase in interstitial opacities. Stable elevation of left hemidiaphragm. Stable right-sided central line with its tip in the SVC. No pneumothorax or pleural effusion. Visualized bony thorax is within normal limits. IMPRESSION: COPD changes. Superimposed atypical/viral infection not ruled out. Electronically signed by: Timothy Wiley DO (10/11/2018 6:26 AM) [facility]
--- NOTE | 2018-10-11 06:42 | RAD ---
Indication: Bilateral leg swelling , Pain, cough TECHNIQUE: Grayscale, color Doppler and spectral waveform is of the bilateral lower extremity deep veins COMPARISON: None FINDINGS: The interrogated right lower extremity deep veins are compressible and demonstrates evidence of blood flow with normal respiratory variation and response augmentation. Hypoechoic filling defect is seen in the left CFV, proximal SFV, proximal with saphenous vein without evidence of blood flow. No evidence of thrombus in the popliteal vein. Nonoccluding thrombus in the distal SFV. Bilateral lower extremity calf edema. IMPRESSION: 1. No right lower extremity DVT. 2. Occluding thrombus in the left CFV down to mid SFV and also in one of the calf veins. Nonoccluding thrombus in the distal SFV. Critical findings were identified on 10/11/2018 6:33 AM, read back and verified with Dr. Bee on 10/11/2018 6:[address] Timothy Wiley DO. Electronically signed by: Timothy Wiley DO (10/11/2018 6:39 AM) [facility]
[2018-10-11] MEDS ORDERED: ONDANSETRON PF 4 MG/2 ML VIAL. IV PRN (06:45)
--- NOTE | 2018-10-11 07:21 | EKG ---
[facility] [address] [place] [address] Test Date: 2018-10-11 Test Time: 05:28:14 Pat Name: CHI BOGGS Department: Room: 200 1 Gender: M Third Miller: : 1950 Requested By: JADEN PERES Order Number: [id number] Reading MD: Pito Guajardo Measurements Intervals [place] Rate: 87 P: 64 RI: 130 QRS: 9 QRSD: 80 T: 28 QT: 380 QTc: 463 Interpretive Statements SINUS RHYTHM NONSPECIFIC ST-T WAVE CHANGES. Electronically Signed On 10-15-2018 9:15:12 CDT by Pito Guajardo
[2018-10-11 08:12] LABS: % LYMPHS 8 % (24-48); % MONOS 4 % (0-10); % SEGS 88 % (35-66); ANISOCYTOSIS MOD; PLT ESTIMATE DECREASED (ADEQUATE)
--- NOTE | 2018-10-11 08:31 | NUR ---
FACULTY CO-SIGN I have reviewed the documentation by Chema Cheugn registered nursing professor, [facility]: Addendum: 10/11/18 at 0832 by VILMA LOZANO RN Amended: Links added.
[2018-10-11] MEDS ORDERED: VITAMIN A 10,000 UNIT CAPSULE. PO ONE (09:00)
--- NOTE | 2018-10-11 09:53 | NUR ---
SW reviewed pt's medical chart and evaluated for potential dc needs. Pt is from home with spouse and was admitted for hemoptysis. There are currently two consults pending and no PT/OT has been ordered. SW will continue to follow and be available for dc needs.
--- NOTE | 2018-10-11 10:03 | PDOC ---
Provider Note Provider Note Pt seen.H&P dictated.#[id number] ALFREDO GUERIN MD Oct 11, 2018 10:03
[2018-10-11] MEDS ORDERED: ONDANSETRON ODT 4 MG TAB.RAPDIS. PO PRN (10:15)
--- NOTE | 2018-10-11 11:47 | HP ---
ADMIT DATE: 10/11/2018 PATIENT'S LOCATION: 200. REASON FOR ADMISSION TO THE HOSPITAL: Hemoptysis, the patient has history of lung cancer. HISTORY OF PRESENT ILLNESS: The patient is a 68-year-old male, patient known to me, has a history of lung cancer which was diagnosed last year and the patient had radiation treatment at and is seeing Oncology, Dr. Parsons and was getting Keytruda infusion at Dr. Parsons's office once in every 3 weeks, supposed to have it today. He had some hemoptysis, came to the Emergency Room and chest x-ray did not show much infiltrates, but his platelets and hemoglobin was low; had swelling in the left leg, Doppler shows DVT. The patient was consulted with Hematology and Pulmonary. PAST MEDICAL HISTORY: The patient has a history of lung cancer, had a radiation treatment and is getting Keytruda infusion, this was diagnosed in April last year and as per the patient had radiation treatment 5 doses. The patient has a history of skin cancer on the nose had reconstructive surgery and also had a skin cancer in the groin, had surgery done. He had a colon resection; multiple abdominal surgeries; ileostomy and cirrhosis of the liver; splenomegaly; esophageal varices; colon cancer, had surgery done for that; sebaceous carcinoma of the left groin, had a surgery done and cancer of the skin of the nose. SURGICAL HISTORY: Colon resection, multiple abdominal surgeries, excision of the skin lesion in left groin, has IVC filter and he also has a Groshong catheter for chemo. ALLERGIES: IV and ORAL CONTRAST, IBUPROFEN and LACTOSE, TYLENOL. MEDICATIONS AT HOME: Vitamin B12 1000 mcg daily, vitamin D 50,000 once a week, iron 325 three times a day iron, Lasix 40 mg daily, morphine 15 mg q. 6 hours for jluis MS [id number] mg twice a day, long-acting Protonix 40 mg daily, vitamin E 400 units daily, vitamin C 1000 daily, vitamin D, Zofran for nausea, potassium 20 mEq daily, vitamin A 1000 daily, zinc daily. He got some IV fluids at home. Avatrombopag 20 mg tablet, takes 60 mg daily. PERSONAL HISTORY: History of smoking, stopped smoking now. Denies alcohol. Denies street drugs. FAMILY HISTORY: Unremarkable. SOCIAL HISTORY: Lives at home with his . He has a Groshong catheter at home. He infuses IV fluids at night time. REVIEW OF SYMPTOMS: Complains of cough with bloody hemoptysis. Denies any chest pain. Denies any nausea, vomiting or fever. Denies any black stool in the ileostomy bag. Rest of the 14-system was reviewed and negative. PHYSICAL EXAMINATION: VITAL SIGNS: Vitals at the time of admission shows temperature 97, pulse 94, respirations 25, blood pressure 139/60, 98% on room air. HEENT: Head is atraumatic. Pupils are equal. Oral cavity; no congestion, had a history of constructive surgery in the nose. NECK: Supple. Thyroid not enlarged. CHEST: Symmetrical, has a Groshong catheter in right side of the chest. CARDIOVASCULAR: S1 and S2. LUNGS: Clear to auscultation. No wheezing. ABDOMEN: Soft. The patient has multiple abdominal surgeries, has an ileostomy bag in the right lower quadrant, soft, no mass palpable. EXTERNAL GENITALIA: No Crane. RECTAL: Deferred. EXTREMITIES: The patient has a swelling in the left leg, 1-2+. No swelling in the right leg. NEUROLOGIC: Cranial nerves intact. Power 5/5 in all extremities. LABORATORY DATA AND DIAGNOSTIC STUDIES: Shows a white count of 1.5, low; hemoglobin 6, low; platelets 29,000, low. INR is 1.6. Electrolytes showed sodium 143, potassium 4.0, chloride 110, bicarb 27, BUN 28, creatinine 1.0, glucose 107, lactic acid 0.8. LFTs were normal. Troponin 0.019. Albumin 1.8. Chest x-ray shows COPD changes. Doppler of lower extremity shows a DVT, left leg. FINAL IMPRESSION: 1. Hemoptysis. 2. History of lung cancer, had a radiation treatment, diagnosed in April last year. He is getting Keytruda infusions every 3 weeks, supposed to have infusion today. 3. Deep venous thrombosis, left lower leg. 4. History of inferior vena cava filter. 5. History of colon cancer status post surgery, had an ileostomy. 6. History of multiple cancers including skin cancer of the nose as well as sebaceous carcinoma of the left groin. 7. Pancytopenia secondary to chemo. PLAN: At this time, admit to hospital. The patient has consulted Hematology/Oncology and also Pulmonary Critical Care with the platelets and hemoglobin low, the patient has IVC filter. No need to anticoagulate at this point. We will wait for Hematology/Oncology recommendation and the patient is scheduled for a V/Q scan in the meantime. ALFREDO GUERIN MD DR: KENDAL/steven JOB#: [id number] / [id number] Dr. KINGA Conklin
[2018-10-11] MEDS: MORPHINE ER 15 MG TABLET.ER PO SCH ×2 (12:09→20:08)
--- NOTE | 2018-10-11 13:41 | RAD ---
VQ Scan: Clinical History: Elevated d-dimer, dyspnea. Technique: 4.4 mCi of Tc 99m DTPA was administered as an aerosol and spot views were obtained on a gamma camera for a Nuclear Medicine ventilation examination. 24.6 mCi of xenon-133 was administered intravenously and spot views were obtained on the gamma camera for a Nuclear Medicine perfusion examination. Static images were reviewed as a V/Q scan in order to exclude pulmonary embolism. Findings: There is retention of the ventilation radiotracer in the bilateral lungs on the washout phase images could be due to reactive airway disease. There are multiple perfusion mismatch defects identified in the bilateral lungs. IMPRESSION: High probability for pulmonary embolism. Patient's nurse informed at 1:30 PM same day exam. Electronically signed by: Mu Do MD (10/11/2018 1:38 PM) [facility]
[2018-10-11] MEDS: CHOLECALCIFEROL (VITAMIN D3) 5,000 UNIT CAPSULE PO SCH (14:16)
[2018-10-11] MEDS: PANTOPRAZOLE 40 MG TABLET.DR. PO SCH (14:16)
[2018-10-11] MEDS: ZINC SULFATE 220 MG CAPSULE. PO SCH (14:16)
[2018-10-11] MEDS: VITAMIN A 10,000 UNIT CAPSULE. PO SCH (14:16)
[2018-10-11] MEDS: VITAMIN E 200 UNIT CAPSULE. PO SCH (14:16)
[2018-10-11 15:20] LABS: HEMATOCRIT 22.6 % (39.0-53.0); HEMOGLOBIN 7.2 g/dL (13.0-17.5); RED BLOOD COUNT 2.53 x10^6/uL (4.30-5.70); RED CELL DISTRIBUTION WIDTH 19.8 % (11.5-14.5)
--- NOTE | 2018-10-11 18:33 | PDOC ---
PULMONARY PROGRESS NOTES Vitals Vital Signs Date Time Temp Pulse Resp B/P (MAP) Pulse Ox O2 Delivery O2 Flow Rate FiO2 10/11/18 16:23 14 95 Room Air 10/11/18 15:08 97.8 81 113/50 (71) 97.8 Labs Laboratory Tests Test 10/11/18 05:40 10/11/18 09:15 10/11/18 12:00 White Blood Count 1.5 x10^3/uL (4.0-11.0) 1.0 x10^3/uL (4.0-11.0) Red Blood Count 2.07 x10^6/uL (4.30-5.70) 2.53 x10^6/uL (4.30-5.70) Hemoglobin 6.0 g/dL (13.0-17.5) 7.2 g/dL (13.0-17.5) Hematocrit 18.6 % (39.0-53.0) 22.6 % (39.0-53.0) Mean Corpuscular Volume 90 fL (79-100) 89 fL (79-100) Mean Corpuscular Hemoglobin 29 pg (25-35) 29 pg (25-35) Mean Corpuscular Hemoglobin Concent 32 g/dL (31-37) 32 g/dL (31-37) Red Cell Distribution Width 19.9 % (11.5-14.5) 19.8 % (11.5-14.5) Platelet Count 29 x10^3/uL (140-400) 26 x10^3/uL (140-400) Neutrophils (%) (Auto) 82 % (31-73) Lymphocytes (%) (Auto) 9 % (24-48) Monocytes (%) (Auto) 7 % (0-9) Eosinophils (%) (Auto) 1 % (0-3) Basophils (%) (Auto) 0 % (0-3) Neutrophils # (Auto) 1.2 x10^3uL (1.8-7.7) Lymphocytes # (Auto) 0.1 x10^3/uL (1.0-4.8) Monocytes # (Auto) 0.1 x10^3/uL (0.0-1.1) Eosinophils # (Auto) 0.0 x10^3/uL (0.0-0.7) Basophils # (Auto) 0.0 x10^3/uL (0.0-0.2) Segmented Neutrophils % 88 % (35-66) Lymphocytes % 8 % (24-48) Monocytes % 4 % (0-10) Platelet Estimate Decreased (ADEQUATE) Anisocytosis Mod Prothrombin Time 18.3 SEC (11.7-14.0) Prothromb Time International Ratio 1.6 (0.8-1.1) Activated Partial Thromboplast Time 30 SEC (24-38) D-Dimer (Lindy) 1.55 ug/mlFEU (0.00-0.50) Sodium Level 143 mmol/L (136-145) Potassium Level 4.0 mmol/L (3.5-5.1) Chloride Level 110 mmol/L (98-107) Carbon Dioxide Level 27 mmol/L (21-32) Anion Gap 6 (6-14) Blood Urea Nitrogen 28 mg/dL (8-26) Creatinine 1.0 mg/dL (0.7-1.3) Estimated GFR (Cockcroft-Gault) 74.1 BUN/Creatinine Ratio 28 (6-20) Glucose Level 107 mg/dL (70-99) Lactic Acid Level 0.8 mmol/L (0.4-2.0) Calcium Level 8.4 mg/dL (8.5-10.1) Total Bilirubin 0.8 mg/dL (0.2-1.0) Aspartate Amino Transf (AST/SGOT) 27 U/L (15-37) Alanine Aminotransferase (ALT/SGPT) 13 U/L (16-63) Alkaline Phosphatase 91 U/L (46-116) Creatine Kinase 51 U/L (39-308) Creatine Kinase MB (Mass) 0.5 ng/mL (0.0-3.6) Creatine Kinase MB Relative Index % (0-4) Troponin I Quantitative 0.019 ng/mL (0.000-0.055) < 0.017 ng/mL (0.000-0.055) 0.017 ng/mL (0.000-0.055) NQ-Xmp-N-Type Natriuretic Peptide 154 pg/mL (0-124) Total Protein 5.5 g/dL (6.4-8.2) Albumin 1.8 g/dL (3.4-5.0) Albumin/Globulin Ratio 0.5 (1.0-1.7) Laboratory Tests Test 10/11/18 05:40 10/11/18 09:15 10/11/18 12:00 White Blood Count 1.5 x10^3/uL (4.0-11.0) 1.0 x10^3/uL (4.0-11.0) Red Blood Count 2.07 x10^6/uL (4.30-5.70) 2.53 x10^6/uL (4.30-5.70) Hemoglobin 6.0 g/dL (13.0-17.5) 7.2 g/dL (13.0-17.5) Hematocrit 18.6 % (39.0-53.0) 22.6 % (39.0-53.0) Mean Corpuscular Volume 90 fL (79-100) 89 fL (79-100) Mean Corpuscular Hemoglobin 29 pg (25-35) 29 pg (25-35) Mean Corpuscular Hemoglobin Concent 32 g/dL (31-37) 32 g/dL (31-37) Red Cell Distribution Width 19.9 % (11.5-14.5) 19.8 % (11.5-14.5) Platelet Count 29 x10^3/uL (140-400) 26 x10^3/uL (140-400) Neutrophils (%) (Auto) 82 % (31-73) Lymphocytes (%) (Auto) 9 % (24-48) Monocytes (%) (Auto) 7 % (0-9) Eosinophils (%) (Auto) 1 % (0-3) Basophils (%) (Auto) 0 % (0-3) Neutrophils # (Auto) 1.2 x10^3uL (1.8-7.7) Lymphocytes # (Auto) 0.1 x10^3/uL (1.0-4.8) Monocytes # (Auto) 0.1 x10^3/uL (0.0-1.1) Eosinophils # (Auto) 0.0 x10^3/uL (0.0-0.7) Basophils # (Auto) 0.0 x10^3/uL (0.0-0.2) Segmented Neutrophils % 88 % (35-66) Lymphocytes % 8 % (24-48) Monocytes % 4 % (0-10) Platelet Estimate Decreased (ADEQUATE) Anisocytosis Mod Prothrombin Time 18.3 SEC (11.7-14.0) Prothromb Time International Ratio 1.6 (0.8-1.1) Activated Partial Thromboplast Time 30 SEC (24-38) D-Dimer (Lindy) 1.55 ug/mlFEU (0.00-0.50) Sodium Level 143 mmol/L (136-145) Potassium Level 4.0 mmol/L (3.5-5.1) Chloride Level 110 mmol/L (98-107) Carbon Dioxide Level 27 mmol/L (21-32) Anion Gap 6 (6-14) Blood Urea Nitrogen 28 mg/dL (8-26) Creatinine 1.0 mg/dL (0.7-1.3) Estimated GFR (Cockcroft-Gault) 74.1 BUN/Creatinine Ratio 28 (6-20) Glucose Level 107 mg/dL (70-99) Lactic Acid Level 0.8 mmol/L (0.4-2.0) Calcium Level 8.4 mg/dL (8.5-10.1) Total Bilirubin 0.8 mg/dL (0.2-1.0) Aspartate Amino Transf (AST/SGOT) 27 U/L (15-37) Alanine Aminotransferase (ALT/SGPT) 13 U/L (16-63) Alkaline Phosphatase 91 U/L (46-116) Creatine Kinase 51 U/L (39-308) Creatine Kinase MB (Mass) 0.5 ng/mL (0.0-3.6) Creatine Kinase MB Relative Index % (0-4) Troponin I Quantitative 0.019 ng/mL (0.000-0.055) < 0.017 ng/mL (0.000-0.055) 0.017 ng/mL (0.000-0.055) SS-Ghl-O-Type Natriuretic Peptide 154 pg/mL (0-124) Total Protein 5.5 g/dL (6.4-8.2) Albumin 1.8 g/dL (3.4-5.0) Albumin/Globulin Ratio 0.5 (1.0-1.7) Medications Active Scripts Medications Dose Route/Sig Max Daily Dose Days Date Category Dose Instructions Potassium Chloride 20 Meq Tablet.er 20 Meq PO BID 02/09/18 Reported Lasix (Furosemide) 40 Mg Tablet 1 Tab PO DAILY 02/09/18 Reported Vitamin D2 (Ergocalciferol (Vitamin D2)) 50,000 Unit Capsule 1 Cap PO BID 02/09/18 Reported Vitamin D3 (Cholecalciferol (Vitamin D3)) 5,000 Unit Tablet 1 Tab PO DAILY 02/09/18 Reported Zofran (Ondansetron Hcl) 4 Mg Tablet 1 Tab PO Q8HRS PRN 02/09/18 Reported Morphine Sulfate Er (Morphine Sulfate) 15 Mg Tablet.er 1 Tab PO BID 02/09/18 Reported Oxycodone Hcl Immed.release (Oxycodone Hcl) 10 Mg Tablet 1 Tab PO BID 02/09/18 Reported Ferrous Sulfate 325 Mg Tablet 1 Tab PO TID 02/09/18 Reported Morphine Sulfate 15 Mg Tablet 1-2 Tab PO Q6HRS PRN 02/08/18 Reported [1/2ns w/ kcl & mag] 1 L IV DAILY 02/08/18 Reported 1/2 ns w/ 40 meq of kcl, 20 meq of magnesium -1 liter 6 days a week. runs over 12 hours Zinc (Zinc Amino Acid Chelate) 50 Mg Tablet 50 Mg PO DAILY 01/08/16 Reported Vitamin B-12 (Cyanocobalamin (Vitamin B-12)) 1,000 Mcg Tablet 1 Tab PO DAILY 07/27/15 Reported Protonix (Pantoprazole Sodium) 40 Mg Tablet. 1 Tab PO DAILY 03/28/15 Rx Vitamin C (Ascorbic Acid) 1,000 Mg Tablet 1,000 Mg PO DAILY 12/29/13 Reported Vitamin E 200 Unit Capsule 400 Unit PO DAILY 08/01/13 Reported Vitamin A 8,000 Unit Capsule 8,000 Unit PO DAILY 08/01/13 Reported Impression . DICTATED NO ANTICOAGULATION D/W DR LINDSEY TREAT FOR ACUTE BRONCHITIS/PNEUMONIA JARED MCDANIEL MD Oct 11, 2018 18:33
[2018-10-11] MEDS: methylPREDNISolone SOD SUCC PF 125 MG/2 ML VIAL. IV SCH (18:54)
[2018-10-11] MEDS: DOXYCYCLINE HYCLATE 100 MG in IV DEXTROSE 5% 100ML 100 ML IV SCH (20:09)
[2018-10-12 03:59] VITALS: BP 112/55
[2018-10-12 05:17] LABS: CALCIUM 8.5 mg/dL (8.5-10.1); CREATININE 0.9 mg/dL (0.7-1.3); GFR 83.7; POTASSIUM 4.5 mmol/L (3.5-5.1)
[2018-10-12 05:27] LABS: BASO % 0 % (0-3); EOS % 0 % (0-3); HEMATOCRIT 21.2 % (39.0-53.0); LYMPH # 0.1 x10^3/uL (1.0-4.8); LYMPH % 8 % (24-48); MEAN CORPUSCULAR HEMOGLOBIN 29 pg (25-35); MEAN CORPUSCULAR HGB CONC 33 g/dL (31-37); MEAN CORPUSCULAR VOLUME 89 fL (79-100); MONO % 2 % (0-9); NEUT # 1.4 x10^3uL (1.8-7.7); NEUT % 90 % (31-73); PLATELET COUNT 30 x10^3/uL (140-400); RED BLOOD COUNT 2.38 x10^6/uL (4.30-5.70); RED CELL DISTRIBUTION WIDTH 19.7 % (11.5-14.5)
[2018-10-12 05:32] LABS: HEMOGLOBIN 6.9 g/dL (13.0-17.5); WHITE BLOOD COUNT 1.6 x10^3/uL (4.0-11.0)
[2018-10-12 07:00] VITALS: BP 115/56
[2018-10-12] MEDS: VITAMIN E 200 UNIT CAPSULE. PO SCH (08:37)
[2018-10-12] MEDS: CHOLECALCIFEROL (VITAMIN D3) 5,000 UNIT CAPSULE PO SCH (08:39)
[2018-10-12] MEDS: PANTOPRAZOLE 40 MG TABLET.DR. PO SCH (08:39)
[2018-10-12] MEDS: ZINC SULFATE 220 MG CAPSULE. PO SCH (08:39)
[2018-10-12] MEDS: MORPHINE ER 15 MG TABLET.ER PO SCH ×2 (08:39→20:26)
[2018-10-12] MEDS: VITAMIN A 10,000 UNIT CAPSULE. PO SCH (08:39)
[2018-10-12] MEDS: methylPREDNISolone SOD SUCC PF 125 MG/2 ML VIAL. IV SCH ×2 (08:41→20:27)
[2018-10-12] MEDS: DOXYCYCLINE HYCLATE 100 MG in IV DEXTROSE 5% 100ML 100 ML IV SCH ×2 (08:42→20:26)
--- NOTE | 2018-10-12 08:42 | PDOC ---
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 ROS - hemoptysis resolved Objective Objective Vital Signs Date Time Temp Pulse Resp B/P (MAP) Pulse Ox O2 Delivery O2 Flow Rate FiO2 10/12/18 07:00 97.9 76 18 115/56 (75) 97.9 10/12/18 03:59 97 Room Air Intake and Output 10/12/18 06:59 Intake Total 460 ml Output Total 400 ml Balance 60 ml Intake Oral 100 ml Blood Product IV Normal Saline Flush 360 ml Output Urine Total 400 ml # Voids 1 # Bowel Movements 1 Physical Exam Heart: Normal S1, Normal S2 General: Alert, Oriented X3 Lungs: Clear to auscultation Neuro: Normal speech Psych/Mental Status: Mental status NL Assessment Assessment Problems Medical Problems: (1) Acute DVT (deep venous thrombosis) Status: Acute (2) Elevated d-dimer Status: Acute (3) Hemoptysis Status: Acute (4) Hx of cancer of lung Status: Acute (5) Pancytopenia Status: Acute 1. 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 2. 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 No anticoagulation due to low plt. 3. Anemia - transfuse 1 unit today. f/u with me upon discharge. Comment Review of Relevant I have reviewed the following items sera (where applicable) has been applied. Labs Laboratory Tests Test 10/11/18 05:40 10/11/18 09:15 10/11/18 12:00 10/12/18 03:30 White Blood Count 1.5 x10^3/uL (4.0-11.0) 1.0 x10^3/uL (4.0-11.0) 1.6 x10^3/uL (4.0-11.0) Red Blood Count 2.07 x10^6/uL (4.30-5.70) 2.53 x10^6/uL (4.30-5.70) 2.38 x10^6/uL (4.30-5.70) Hemoglobin 6.0 g/dL (13.0-17.5) 7.2 g/dL (13.0-17.5) 6.9 g/dL (13.0-17.5) Hematocrit 18.6 % (39.0-53.0) 22.6 % (39.0-53.0) 21.2 % (39.0-53.0) Mean Corpuscular Volume 90 fL (79-100) 89 fL (79-100) 89 fL (79-100) Mean Corpuscular Hemoglobin 29 pg (25-35) 29 pg (25-35) 29 pg (25-35) Mean Corpuscular Hemoglobin Concent 32 g/dL (31-37) 32 g/dL (31-37) 33 g/dL (31-37) Red Cell Distribution Width 19.9 % (11.5-14.5) 19.8 % (11.5-14.5) 19.7 % (11.5-14.5) Platelet Count 29 x10^3/uL (140-400) 26 x10^3/uL (140-400) 30 x10^3/uL (140-400) Neutrophils (%) (Auto) 82 % (31-73) 90 % (31-73) Lymphocytes (%) (Auto) 9 % (24-48) 8 % (24-48) Monocytes (%) (Auto) 7 % (0-9) 2 % (0-9) Eosinophils (%) (Auto) 1 % (0-3) 0 % (0-3) Basophils (%) (Auto) 0 % (0-3) 0 % (0-3) Neutrophils # (Auto) 1.2 x10^3uL (1.8-7.7) 1.4 x10^3uL (1.8-7.7) Lymphocytes # (Auto) 0.1 x10^3/uL (1.0-4.8) 0.1 x10^3/uL (1.0-4.8) Monocytes # (Auto) 0.1 x10^3/uL (0.0-1.1) 0.0 x10^3/uL (0.0-1.1) Eosinophils # (Auto) 0.0 x10^3/uL (0.0-0.7) 0.0 x10^3/uL (0.0-0.7) Basophils # (Auto) 0.0 x10^3/uL (0.0-0.2) 0.0 x10^3/uL (0.0-0.2) Segmented Neutrophils % 88 % (35-66) Lymphocytes % 8 % (24-48) Monocytes % 4 % (0-10) Platelet Estimate Decreased (ADEQUATE) Anisocytosis Mod Prothrombin Time 18.3 SEC (11.7-14.0) Prothromb Time International Ratio 1.6 (0.8-1.1) Activated Partial Thromboplast Time 30 SEC (24-38) D-Dimer (Lindy) 1.55 ug/mlFEU (0.00-0.50) Sodium Level 143 mmol/L (136-145) 141 mmol/L (136-145) Potassium Level 4.0 mmol/L (3.5-5.1) 4.5 mmol/L (3.5-5.1) Chloride Level 110 mmol/L (98-107) 109 mmol/L (98-107) Carbon Dioxide Level 27 mmol/L (21-32) 27 mmol/L (21-32) Anion Gap 6 (6-14) 5 (6-14) Blood Urea Nitrogen 28 mg/dL (8-26) 34 mg/dL (8-26) Creatinine 1.0 mg/dL (0.7-1.3) 0.9 mg/dL (0.7-1.3) Estimated GFR (Cockcroft-Gault) 74.1 83.7 BUN/Creatinine Ratio 28 (6-20) Glucose Level 107 mg/dL (70-99) 127 mg/dL (70-99) Lactic Acid Level 0.8 mmol/L (0.4-2.0) Calcium Level 8.4 mg/dL (8.5-10.1) 8.5 mg/dL (8.5-10.1) Total Bilirubin 0.8 mg/dL (0.2-1.0) Aspartate Amino Transf (AST/SGOT) 27 U/L (15-37) Alanine Aminotransferase (ALT/SGPT) 13 U/L (16-63) Alkaline Phosphatase 91 U/L (46-116) Creatine Kinase 51 U/L (39-308) Creatine Kinase MB (Mass) 0.5 ng/mL (0.0-3.6) Creatine Kinase MB Relative Index % (0-4) Troponin I Quantitative 0.019 ng/mL (0.000-0.055) < 0.017 ng/mL (0.000-0.055) 0.017 ng/mL (0.000-0.055) OT-Gqj-I-Type Natriuretic Peptide 154 pg/mL (0-124) Total Protein 5.5 g/dL (6.4-8.2) Albumin 1.8 g/dL (3.4-5.0) Albumin/Globulin Ratio 0.5 (1.0-1.7) Laboratory Tests Test 10/11/18 09:15 10/11/18 12:00 10/12/18 03:30 Troponin I Quantitative < 0.017 ng/mL (0.000-0.055) 0.017 ng/mL (0.000-0.055) White Blood Count 1.0 x10^3/uL (4.0-11.0) 1.6 x10^3/uL (4.0-11.0) Red Blood Count 2.53 x10^6/uL (4.30-5.70) 2.38 x10^6/uL (4.30-5.70) Hemoglobin 7.2 g/dL (13.0-17.5) 6.9 g/dL (13.0-17.5) Hematocrit 22.6 % (39.0-53.0) 21.2 % (39.0-53.0) Mean Corpuscular Volume 89 fL (79-100) 89 fL (79-100) Mean Corpuscular Hemoglobin 29 pg (25-35) 29 pg (25-35) Mean Corpuscular Hemoglobin Concent 32 g/dL (31-37) 33 g/dL (31-37) Red Cell Distribution Width 19.8 % (11.5-14.5) 19.7 % (11.5-14.5) Platelet Count 26 x10^3/uL (140-400) 30 x10^3/uL (140-400) Neutrophils (%) (Auto) 90 % (31-73) Lymphocytes (%) (Auto) 8 % (24-48) Monocytes (%) (Auto) 2 % (0-9) Eosinophils (%) (Auto) 0 % (0-3) Basophils (%) (Auto) 0 % (0-3) Neutrophils # (Auto) 1.4 x10^3uL (1.8-7.7) Lymphocytes # (Auto) 0.1 x10^3/uL (1.0-4.8) Monocytes # (Auto) 0.0 x10^3/uL (0.0-1.1) Eosinophils # (Auto) 0.0 x10^3/uL (0.0-0.7) Basophils # (Auto) 0.0 x10^3/uL (0.0-0.2) Sodium Level 141 mmol/L (136-145) Potassium Level 4.5 mmol/L (3.5-5.1) Chloride Level 109 mmol/L (98-107) Carbon Dioxide Level 27 mmol/L (21-32) Anion Gap 5 (6-14) Blood Urea Nitrogen 34 mg/dL (8-26) Creatinine 0.9 mg/dL (0.7-1.3) Estimated GFR (Cockcroft-Gault) 83.7 Glucose Level 127 mg/dL (70-99) Calcium Level 8.5 mg/dL (8.5-10.1) Medications Current Medications Dexamethasone (Decadron) 10 mg 1X ONCE PO Last administered on 10/11/18at 05:47; Start 10/11/18 at 05:00; Stop 10/11/18 at 05:01; Status DC Sodium Chloride 1,000 ml @ 1,000 mls/hr 1X ONCE IV ; Start 10/11/18 at 05:30; Stop 10/11/18 at 05:30; Status DC Ondansetron HCl (Zofran) 4 mg PRN Q8HRS PRN IV NAUSEA/VOMITING 1ST CHOICE; Start 10/11/18 at 06:45; Stop 10/12/18 at 06:44; Status DC Fentanyl Citrate (Fentanyl 2ml Vial) 50 mcg PRN Q2HRS PRN IV SEVERE PAIN; Start 10/11/18 at 06:45 Morphine Sulfate (Ms Contin) 15 mg BID PO Last administered on 10/11/18at 20:08; Start 10/11/18 at 11:00 Pantoprazole Sodium (Protonix) 40 mg DAILY PO Last administered on 10/11/18at 14:16; Start 10/11/18 at 11:30 Vitamin E 400 unit DAILY PO Last administered on 10/11/18at 14:16; Start 10/11/18 at 11:00 Vitamin D (Vitamin D3) 5,000 unit DAILY PO Last administered on 10/11/18at 14:16; Start 10/11/18 at 11:00 Ondansetron HCl (Zofran Odt) 4 mg PRN Q8HRS PRN PO NAUSEA/VOMITING; Start 10/11/18 at 10:15 Vitamin A 10,000 unit DAILY PO Last administered on 10/11/18at 14:16; Start 10/11/18 at 11:00 Zinc Sulfate (Orazinc) 220 mg DAILY PO Last administered on 10/11/18at 14:16; Start 10/11/18 at 11:00 Enoxaparin Sodium (Lovenox Per Pharmacy Treatment Dosing) 1 each PRN DAILY PRN MC SEE COMMENTS; Start 10/11/18 at 15:00; Status Cancel Doxycycline Hyclate 100 mg/ Dextrose 100 ml @ 50 mls/hr Q12HR IV Last administered on 10/11/18at 20:09; Start 10/11/18 at 19:00 Methylprednisolone Sodium Succinate (SOLU-Medrol 125MG VIAL) 80 mg BID IV Last administered on 10/11/18at 18:54; Start 10/11/18 at 19:00 Active Scripts Active Protonix (Pantoprazole Sodium) 40 Mg Tablet.dr 1 Tab PO DAILY Reported Potassium Chloride 20 Meq Tablet.er 20 Meq PO BID Lasix (Furosemide) 40 Mg Tablet 1 Tab PO DAILY Vitamin D2 (Ergocalciferol (Vitamin D2)) 50,000 Unit Capsule 1 Cap PO BID Vitamin D3 (Cholecalciferol (Vitamin D3)) 5,000 Unit Tablet 1 Tab PO DAILY Zofran (Ondansetron Hcl) 4 Mg Tablet 1 Tab PO Q8HRS PRN Morphine Sulfate Er (Morphine Sulfate) 15 Mg Tablet.er 1 Tab PO BID Oxycodone Hcl Immed.release (Oxycodone Hcl) 10 Mg Tablet 1 Tab PO BID Ferrous Sulfate 325 Mg Tablet 1 Tab PO TID Morphine Sulfate 15 Mg Tablet 1-2 Tab PO Q6HRS PRN [1/2ns w/ kcl & mag] 1 L IV DAILY 1/2 ns w/ 40 meq of kcl, 20 meq of magnesium -1 liter 6 days a week. runs over 12 hours Zinc (Zinc Amino Acid Chelate) 50 Mg Tablet 50 Mg PO DAILY Vitamin B-12 (Cyanocobalamin (Vitamin B-12)) 1,000 Mcg Tablet 1 Tab PO DAILY Vitamin C (Ascorbic Acid) 1,000 Mg Tablet 1,000 Mg PO DAILY Vitamin E 200 Unit Capsule 400 Unit PO DAILY Vitamin A 8,000 Unit Capsule 8,000 Unit PO DAILY Vitals/I & O Vital Sign - Last 24 Hours 10/11/18 10/11/18 10/11/18 10/11/18 09:01 10:51 11:15 12:09 Temp 97.4 98.2 98.3 97.4 98.2 98.3 Pulse 82 80 82 Resp 14 18 16 16 B/P (MAP) 118/61 119/60 (79) 131/61 Pulse Ox 94 O2 Delivery Room Air Room Air 10/11/18 10/11/18 10/11/18 10/11/18 12:15 15:08 16:23 19:52 Temp 98.0 97.8 97.8 98.0 97.8 97.8 Pulse 90 81 81 Resp 14 16 14 16 B/P (MAP) 132/61 113/50 (71) 116/62 (80) Pulse Ox 95 95 95 O2 Delivery Room Air Room Air Room Air 10/11/18 10/11/18 10/12/18 10/12/18 20:00 23:59 03:59 07:00 Temp 98.0 97.9 97.9 98.0 97.9 97.9 Pulse 76 78 76 Resp 16 16 18 B/P (MAP) 113/53 (73) 112/55 (74) 115/56 (75) Pulse Ox 97 97 O2 Delivery Room Air Room Air Room Air Intake and Output 10/11/18 10/11/18 10/12/18 14:59 22:59 06:59 Intake Total 360 ml 100 ml Output Total 400 ml Balance 360 ml -300 ml TOBIAS LINDSEY MD Oct 12, 2018 08:42
[2018-10-12] MEDS ORDERED: VITAMIN A 10,000 UNIT CAPSULE. PO ONE (09:00)
--- NOTE | 2018-10-12 09:19 | PDOC ---
PULMONARY PROGRESS NOTES Subjective PT NOT MORE MICHELLE NO FURTHER HEMOPTYSIS Vitals Vital Signs Date Time Temp Pulse Resp B/P (MAP) Pulse Ox O2 Delivery O2 Flow Rate FiO2 10/12/18 08:39 16 95 Room Air 10/12/18 07:00 97.9 76 115/56 (75) 97.9 ROS: No Nausea, No Chest Pain, No Abdominal Pain, No Increase Cough General: Alert Lungs: Crackles Cardiovascular: S1, S2 Abdomen: Soft Neuro Exam: Alert Extremities: No Edema Labs Laboratory Tests Test 10/11/18 05:40 10/11/18 09:15 10/11/18 12:00 10/12/18 03:30 White Blood Count 1.5 x10^3/uL (4.0-11.0) 1.0 x10^3/uL (4.0-11.0) 1.6 x10^3/uL (4.0-11.0) Red Blood Count 2.07 x10^6/uL (4.30-5.70) 2.53 x10^6/uL (4.30-5.70) 2.38 x10^6/uL (4.30-5.70) Hemoglobin 6.0 g/dL (13.0-17.5) 7.2 g/dL (13.0-17.5) 6.9 g/dL (13.0-17.5) Hematocrit 18.6 % (39.0-53.0) 22.6 % (39.0-53.0) 21.2 % (39.0-53.0) Mean Corpuscular Volume 90 fL (79-100) 89 fL (79-100) 89 fL (79-100) Mean Corpuscular Hemoglobin 29 pg (25-35) 29 pg (25-35) 29 pg (25-35) Mean Corpuscular Hemoglobin Concent 32 g/dL (31-37) 32 g/dL (31-37) 33 g/dL (31-37) Red Cell Distribution Width 19.9 % (11.5-14.5) 19.8 % (11.5-14.5) 19.7 % (11.5-14.5) Platelet Count 29 x10^3/uL (140-400) 26 x10^3/uL (140-400) 30 x10^3/uL (140-400) Neutrophils (%) (Auto) 82 % (31-73) 90 % (31-73) Lymphocytes (%) (Auto) 9 % (24-48) 8 % (24-48) Monocytes (%) (Auto) 7 % (0-9) 2 % (0-9) Eosinophils (%) (Auto) 1 % (0-3) 0 % (0-3) Basophils (%) (Auto) 0 % (0-3) 0 % (0-3) Neutrophils # (Auto) 1.2 x10^3uL (1.8-7.7) 1.4 x10^3uL (1.8-7.7) Lymphocytes # (Auto) 0.1 x10^3/uL (1.0-4.8) 0.1 x10^3/uL (1.0-4.8) Monocytes # (Auto) 0.1 x10^3/uL (0.0-1.1) 0.0 x10^3/uL (0.0-1.1) Eosinophils # (Auto) 0.0 x10^3/uL (0.0-0.7) 0.0 x10^3/uL (0.0-0.7) Basophils # (Auto) 0.0 x10^3/uL (0.0-0.2) 0.0 x10^3/uL (0.0-0.2) Segmented Neutrophils % 88 % (35-66) Lymphocytes % 8 % (24-48) Monocytes % 4 % (0-10) Platelet Estimate Decreased (ADEQUATE) Anisocytosis Mod Prothrombin Time 18.3 SEC (11.7-14.0) Prothromb Time International Ratio 1.6 (0.8-1.1) Activated Partial Thromboplast Time 30 SEC (24-38) D-Dimer (Lindy) 1.55 ug/mlFEU (0.00-0.50) Sodium Level 143 mmol/L (136-145) 141 mmol/L (136-145) Potassium Level 4.0 mmol/L (3.5-5.1) 4.5 mmol/L (3.5-5.1) Chloride Level 110 mmol/L (98-107) 109 mmol/L (98-107) Carbon Dioxide Level 27 mmol/L (21-32) 27 mmol/L (21-32) Anion Gap 6 (6-14) 5 (6-14) Blood Urea Nitrogen 28 mg/dL (8-26) 34 mg/dL (8-26) Creatinine 1.0 mg/dL (0.7-1.3) 0.9 mg/dL (0.7-1.3) Estimated GFR (Cockcroft-Gault) 74.1 83.7 BUN/Creatinine Ratio 28 (6-20) Glucose Level 107 mg/dL (70-99) 127 mg/dL (70-99) Lactic Acid Level 0.8 mmol/L (0.4-2.0) Calcium Level 8.4 mg/dL (8.5-10.1) 8.5 mg/dL (8.5-10.1) Total Bilirubin 0.8 mg/dL (0.2-1.0) Aspartate Amino Transf (AST/SGOT) 27 U/L (15-37) Alanine Aminotransferase (ALT/SGPT) 13 U/L (16-63) Alkaline Phosphatase 91 U/L (46-116) Creatine Kinase 51 U/L (39-308) Creatine Kinase MB (Mass) 0.5 ng/mL (0.0-3.6) Creatine Kinase MB Relative Index % (0-4) Troponin I Quantitative 0.019 ng/mL (0.000-0.055) < 0.017 ng/mL (0.000-0.055) 0.017 ng/mL (0.000-0.055) GD-Svg-V-Type Natriuretic Peptide 154 pg/mL (0-124) Total Protein 5.5 g/dL (6.4-8.2) Albumin 1.8 g/dL (3.4-5.0) Albumin/Globulin Ratio 0.5 (1.0-1.7) Laboratory Tests Test 10/11/18 12:00 10/12/18 03:30 White Blood Count 1.0 x10^3/uL (4.0-11.0) 1.6 x10^3/uL (4.0-11.0) Red Blood Count 2.53 x10^6/uL (4.30-5.70) 2.38 x10^6/uL (4.30-5.70) Hemoglobin 7.2 g/dL (13.0-17.5) 6.9 g/dL (13.0-17.5) Hematocrit 22.6 % (39.0-53.0) 21.2 % (39.0-53.0) Mean Corpuscular Volume 89 fL (79-100) 89 fL (79-100) Mean Corpuscular Hemoglobin 29 pg (25-35) 29 pg (25-35) Mean Corpuscular Hemoglobin Concent 32 g/dL (31-37) 33 g/dL (31-37) Red Cell Distribution Width 19.8 % (11.5-14.5) 19.7 % (11.5-14.5) Platelet Count 26 x10^3/uL (140-400) 30 x10^3/uL (140-400) Troponin I Quantitative 0.017 ng/mL (0.000-0.055) Neutrophils (%) (Auto) 90 % (31-73) Lymphocytes (%) (Auto) 8 % (24-48) Monocytes (%) (Auto) 2 % (0-9) Eosinophils (%) (Auto) 0 % (0-3) Basophils (%) (Auto) 0 % (0-3) Neutrophils # (Auto) 1.4 x10^3uL (1.8-7.7) Lymphocytes # (Auto) 0.1 x10^3/uL (1.0-4.8) Monocytes # (Auto) 0.0 x10^3/uL (0.0-1.1) Eosinophils # (Auto) 0.0 x10^3/uL (0.0-0.7) Basophils # (Auto) 0.0 x10^3/uL (0.0-0.2) Sodium Level 141 mmol/L (136-145) Potassium Level 4.5 mmol/L (3.5-5.1) Chloride Level 109 mmol/L (98-107) Carbon Dioxide Level 27 mmol/L (21-32) Anion Gap 5 (6-14) Blood Urea Nitrogen 34 mg/dL (8-26) Creatinine 0.9 mg/dL (0.7-1.3) Estimated GFR (Cockcroft-Gault) 83.7 Glucose Level 127 mg/dL (70-99) Calcium Level 8.5 mg/dL (8.5-10.1) Medications Active Scripts Medications Dose Route/Sig Max Daily Dose Days Date Category Dose Instructions Potassium Chloride 20 Meq Tablet.er 20 Meq PO BID 02/09/18 Reported Lasix (Furosemide) 40 Mg Tablet 1 Tab PO DAILY 02/09/18 Reported Vitamin D2 (Ergocalciferol (Vitamin D2)) 50,000 Unit Capsule 1 Cap PO BID 02/09/18 Reported Vitamin D3 (Cholecalciferol (Vitamin D3)) 5,000 Unit Tablet 1 Tab PO DAILY 02/09/18 Reported Zofran (Ondansetron Hcl) 4 Mg Tablet 1 Tab PO Q8HRS PRN 02/09/18 Reported Morphine Sulfate Er (Morphine Sulfate) 15 Mg Tablet.er 1 Tab PO BID 02/09/18 Reported Oxycodone Hcl Immed.release (Oxycodone Hcl) 10 Mg Tablet 1 Tab PO BID 02/09/18 Reported Ferrous Sulfate 325 Mg Tablet 1 Tab PO TID 02/09/18 Reported Morphine Sulfate 15 Mg Tablet 1-2 Tab PO Q6HRS PRN 02/08/18 Reported [1/2ns w/ kcl & mag] 1 L IV DAILY 02/08/18 Reported 1/2 ns w/ 40 meq of kcl, 20 meq of magnesium -1 liter 6 days a week. runs over 12 hours Zinc (Zinc Amino Acid Chelate) 50 Mg Tablet 50 Mg PO DAILY 01/08/16 Reported Vitamin B-12 (Cyanocobalamin (Vitamin B-12)) 1,000 Mcg Tablet 1 Tab PO DAILY 07/27/15 Reported Protonix (Pantoprazole Sodium) 40 Mg Tablet. 1 Tab PO DAILY 03/28/15 Rx Vitamin C (Ascorbic Acid) 1,000 Mg Tablet 1,000 Mg PO DAILY 12/29/13 Reported Vitamin E 200 Unit Capsule 400 Unit PO DAILY 08/01/13 Reported Vitamin A 8,000 Unit Capsule 8,000 Unit PO DAILY 08/01/13 Reported Impression . 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 Acute bronchitis Pneumonia Hemoptysis related to above H/O DVT Plan . 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 received radiation therapy to the right lower lobe lung nodule, was completed on 04/26/2018. Keytruda was started on 04/28/2018, and he is responding reasonably well. Plan to continue Keytruda as outpatient. 2. Deep venous thrombosis of the left lower extremity, diagnosed on 10/11/2018. He is not a candidate for anticoagulation because of thrombocytopenia. He has an IVC filter in place. 3. Pulmonary embolism diagnosed by V/Q scan on 10/11/2018. He is asymptomatic, does not have any chest pain or dyspnea. He is not a candidate for anticoagulation. I discussed with Dr. Jared Mcdaniel who agrees. I also discussed with Dr. Bryan Soria. 4. Cirrhosis of the liver. 5. Pancytopenia due to cirrhosis. 6. Hemoptysis. Continue evaluation and management per Dr. Mcdaniel. JARED MCDANIEL MD Oct 12, 2018 09:19
--- NOTE | 2018-10-12 09:57 | PDOC ---
PROGRESS NOTES Subjective Subjective dec hemoptysis Objective Objective Vital Signs Date Time Temp Pulse Resp B/P (MAP) Pulse Ox O2 Delivery O2 Flow Rate FiO2 10/12/18 08:39 16 95 Room Air 10/12/18 07:00 97.9 76 115/56 (75) 97.9 Intake and Output 10/12/18 07:00 Intake Total 460 ml Output Total 400 ml Balance 60 ml Intake Oral 100 ml Blood Product IV Normal Saline Flush 360 ml Output Urine Total 400 ml # Voids 1 # Bowel Movements 1 Physical Exam Abdomen: Soft (ileostomy bag) Heart: Normal S1, Normal S2 General: Alert, Oriented X3 Lungs: Clear to auscultation MUSCULOSKELETAL: No joint tenderness, No deformity Neuro: Normal speech Psych/Mental Status: Mental status NL Diagnosis Problem List Problems Medical Problems: (1) Acute DVT (deep venous thrombosis) Status: Acute (2) Elevated d-dimer Status: Acute (3) Hemoptysis Status: Acute (4) Hx of cancer of lung Status: Acute (5) Pancytopenia Status: Acute Assessment Assessment Problems Medical Problems: (1) Acute DVT (deep venous thrombosis) Status: Acute (2) Elevated d-dimer Status: Acute (3) Hemoptysis Status: Acute (4) Hx of cancer of lung Status: Acute (5) Pancytopenia Status: Acute FINAL IMPRESSION: 1. Hemoptysis.?Pneumonia high probability of PE on VQ scan 2. History of lung cancer, , had a radiation treatment, diagnosed in April last year. He is getting Keytruda infusions every 3 weeks, supposed to have infusion today. 3. Deep venous thrombosis, left lower leg. 4. History of inferior vena cava filter. 5. History of colon cancer status post surgery, had an ileostomy. 6. History of multiple cancers including skin cancer of the nose as well as sebaceous carcinoma of the left groin. 7. Pancytopenia secondary to chemo. PLAN: IV antibiotics doxyxycline+steroids holding on anticoagulation due to low platelets Pt has IVC filter. hb 6.9 platelets 28 wbc 1.6. Transfuse today. neutropenia precautions At this time, admit to hospital. The patient has consulted Hematology/Oncology and also Pulmonary Critical Care with the platelets and hemoglobin low, the patient has IVC filter. No need to anticoagulate at this point. We will wait for Hematology/Oncology recommendation and the patient is scheduled for a V/Q scan in the meantime. Plan Plan of Care Problems Medical Problems: (1) Acute DVT (deep venous thrombosis) Status: Acute (2) Elevated d-dimer Status: Acute (3) Hemoptysis Status: Acute (4) Hx of cancer of lung Status: Acute (5) Pancytopenia Status: Acute Comment Review of Relevant I have reviewed the following items sera (where applicable) has been applied. Labs Laboratory Tests Test 10/11/18 12:00 10/12/18 03:30 White Blood Count 1.0 x10^3/uL (4.0-11.0) 1.6 x10^3/uL (4.0-11.0) Red Blood Count 2.53 x10^6/uL (4.30-5.70) 2.38 x10^6/uL (4.30-5.70) Hemoglobin 7.2 g/dL (13.0-17.5) 6.9 g/dL (13.0-17.5) Hematocrit 22.6 % (39.0-53.0) 21.2 % (39.0-53.0) Mean Corpuscular Volume 89 fL (79-100) 89 fL (79-100) Mean Corpuscular Hemoglobin 29 pg (25-35) 29 pg (25-35) Mean Corpuscular Hemoglobin Concent 32 g/dL (31-37) 33 g/dL (31-37) Red Cell Distribution Width 19.8 % (11.5-14.5) 19.7 % (11.5-14.5) Platelet Count 26 x10^3/uL (140-400) 30 x10^3/uL (140-400) Troponin I Quantitative 0.017 ng/mL (0.000-0.055) Neutrophils (%) (Auto) 90 % (31-73) Lymphocytes (%) (Auto) 8 % (24-48) Monocytes (%) (Auto) 2 % (0-9) Eosinophils (%) (Auto) 0 % (0-3) Basophils (%) (Auto) 0 % (0-3) Neutrophils # (Auto) 1.4 x10^3uL (1.8-7.7) Lymphocytes # (Auto) 0.1 x10^3/uL (1.0-4.8) Monocytes # (Auto) 0.0 x10^3/uL (0.0-1.1) Eosinophils # (Auto) 0.0 x10^3/uL (0.0-0.7) Basophils # (Auto) 0.0 x10^3/uL (0.0-0.2) Sodium Level 141 mmol/L (136-145) Potassium Level 4.5 mmol/L (3.5-5.1) Chloride Level 109 mmol/L (98-107) Carbon Dioxide Level 27 mmol/L (21-32) Anion Gap 5 (6-14) Blood Urea Nitrogen 34 mg/dL (8-26) Creatinine 0.9 mg/dL (0.7-1.3) Estimated GFR (Cockcroft-Gault) 83.7 Glucose Level 127 mg/dL (70-99) Calcium Level 8.5 mg/dL (8.5-10.1) Medications Current Medications Doxycycline Hyclate 100 mg/ Dextrose 100 ml @ 50 mls/hr Q12HR IV Last administered on 10/12/18 08:42; Start 10/11/18 at 19:00 Enoxaparin Sodium (Lovenox Per Pharmacy Treatment Dosing) 1 each PRN DAILY PRN MC SEE COMMENTS; Start 10/11/18 at 15:00; Status Cancel Methylprednisolone Sodium Succinate (SOLU-Medrol 125MG VIAL) 80 mg BID IV Last administered on 10/12/18 08:41; Start 10/11/18 at 19:00 Morphine Sulfate (Ms Contin) 15 mg BID PO Last administered on 10/12/18 08:39; Start 10/11/18 at 11:00 Ondansetron HCl (Zofran Odt) 4 mg PRN Q8HRS PRN PO NAUSEA/VOMITING; Start 10/11/18 at 10:15 Pantoprazole Sodium (Protonix) 40 mg DAILY PO Last administered on 10/12/18 08:39; Start 10/11/18 at 11:30 Vitamin A 10,000 unit DAILY PO Last administered on 10/12/18 08:39; Start 10/11/18 at 11:00 Vitamin D (Vitamin D3) 5,000 unit DAILY PO Last administered on 10/12/18 08:39; Start 10/11/18 at 11:00 Vitamin E 400 unit DAILY PO Last administered on 4/30/19at 08:37; Start 10/11/18 at 11:00 Zinc Sulfate (Orazinc) 220 mg DAILY PO Last administered on 10/12/18at 08:39; Start 10/11/18 at 11:00 Vitals/I & O Vital Sign - Last 24 Hours 10/11/18 10/11/18 10/11/18 10/11/18 10:51 11:15 12:09 12:15 Temp 98.2 98.3 98.0 98.2 98.3 98.0 Pulse 80 82 90 Resp 18 16 16 14 B/P (MAP) 119/60 (79) 131/61 132/61 Pulse Ox 94 O2 Delivery Room Air Room Air 10/11/18 10/11/18 10/11/18 10/11/18 15:08 16:23 19:52 20:00 Temp 97.8 97.8 97.8 97.8 Pulse 81 81 Resp 16 14 16 B/P (MAP) 113/50 (71) 116/62 (80) Pulse Ox 95 95 95 O2 Delivery Room Air Room Air Room Air Room Air 10/11/18 10/12/18 10/12/18 10/12/18 23:59 03:59 07:00 08:39 Temp 98.0 97.9 97.9 98.0 97.9 97.9 Pulse 76 78 76 Resp 16 16 18 16 B/P (MAP) 113/53 (73) 112/55 (74) 115/56 (75) Pulse Ox 97 97 95 O2 Delivery Room Air Room Air Room Air Intake and Output 10/11/18 10/11/18 10/12/18 15:00 23:00 07:00 Intake Total 360 ml 100 ml Output Total 400 ml Balance 360 ml -300 ml ALFREDO GUERIN MD Oct 12, 2018 09:57
--- NOTE | 2018-10-12 10:11 | CONS ---
DATE OF CONSULTATION: 10/11/2018 REQUESTING PHYSICIAN: Dr. Bryan Soria. REASON FOR CONSULTATION: DVT and pulmonary embolism. 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 He received radiation therapy to the lung nodules. He was not a candidate for chemotherapy. Further testing revealed that he is MMR deficient. Hence, he was started on Keytruda on 04/28/2018. PET scan after cycle #4 on 07/22/2018 revealed decrease in the right lung base pulmonary nodules. He presented to [facility] with acute onset of hemoptysis on 10/11/2018. He underwent a chest x-ray on 10/11/2018 that revealed COPD. He had a venous Doppler of the lower extremity on 10/11/2018 because of evaluation of leg swelling and he was diagnosed with occluding thrombus in the left common femoral vein down to the mid superficial femoral vein and non-occluding thrombus in the distal superficial femoral vein. V/Q scan on 10/11/2018 revealed high probability for pulmonary embolism. The patient already has an IVC filter placement, and he has thrombocytopenia and hence he was not started on anticoagulation. I discussed the case in detail with Dr. Soria and with Dr. Cruz. He denies any chest pain. 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 FAMILY HISTORY: Negative for sebaceous carcinoma. SOCIAL HISTORY: Has history of smoking, which he has quit. REVIEW OF SYSTEMS: A 12-point review of system was performed. Pertinent positives are mentioned in the history of present illness. Rest of the system review is negative. PHYSICAL EXAMINATION: GENERAL APPEARANCE: The patient is a 68-year-old gentleman who is in no acute cardiorespiratory distress. VITAL SIGNS: Blood pressure 113/50, temperature 97.8. HEENT: Head atraumatic, normocephalic. Eyes: No icterus. NECK: Supple. CHEST: Bilaterally symmetrical. HEART: S1, S2 normal. ABDOMEN: Soft, nontender. CENTRAL NERVOUS SYSTEM: No focal deficits. LYMPHATICS: No lymphadenopathy. SKIN: No rashes. PSYCHOLOGIC: Mood and affect are appropriate. LABORATORY DATA: WBC 1, hemoglobin 7.2, platelet count 26 on 10/11/2018. Hemoglobin at the time of admission was 6, and he received 1 unit of PRBC. Creatinine is 1.0, albumin 1.8. IMPRESSION AND PLAN: 1. 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 He received radiation therapy to the right lower lobe lung nodule, was completed on 04/26/2018. Keytruda was started on 04/28/2018, and he is responding reasonably well. Plan to continue Keytruda as outpatient. 2. Deep venous thrombosis of the left lower extremity, diagnosed on 10/11/2018. He is not a candidate for anticoagulation because of thrombocytopenia. He has an IVC filter in place. 3. Pulmonary embolism diagnosed by V/Q scan on 10/11/2018. He is asymptomatic, does not have any chest pain or dyspnea. He is not a candidate for anticoagulation. I discussed with Dr. Deanna Cruz who agrees. I also discussed with Dr. Bryan Soria. 4. Cirrhosis of the liver. 5. Pancytopenia due to cirrhosis. 6. Hemoptysis. Continue evaluation and management per Dr. Cruz. TOBIAS LINDSEY MD DR: BRENT/nts JOB#: [id number] / [id number] KINGA
[2018-10-12 11:00] VITALS: BP 117/59
--- NOTE | 2018-10-12 13:05 | CONS ---
DATE OF CONSULTATION: 10/11/2018 ATTENDING PHYSICIAN: Dr. Soria. REASON FOR CONSULTATION: The patient seen in pulmonary consultation at the request of Dr. Soria for hemoptysis. HISTORY OF PRESENT ILLNESS: The patient is a 68-year-old male with a history of non-small cell lung cancer status post radiation, diagnosed last April. He is also currently receiving Keytruda infusion every third week. The patient presented with hemoptysis, approximately a tablespoon. He was admitted. V/Q scan was obtained. He also had lower extremity Doppler, which revealed no right lower extremity DVT. There was occlusion and thrombus in the left common femoral vein. The patient does have a history of previous IVC filter placement. He denies fever, chills, nausea, vomiting, diarrhea. PAST MEDICAL HISTORY: 1. Non-small cell lung cancer diagnosed in April of last year, treated with radiation, currently receiving Keytruda infusion. 2. History of skin cancer on the nose. 3. Colon resection. 4. Multiple abdominal surgeries. 5. Cirrhosis of the liver. 6. Splenomegaly. 7. Esophageal varices. PAST SURGICAL HISTORY: Colon resection, multiple abdominal surgeries, previous history of skin cancer and had an excise, IVC filter placement. ALLERGIES: IV CONTRAST, IBUPROFEN, LACTOSE. MEDICATIONS: List was reviewed. FAMILY HISTORY: Noncontributory. SOCIAL HISTORY: He quit tobacco. Currently lives with his . PHYSICAL EXAMINATION: GENERAL: The patient appeared to be older than stated age. VITAL SIGNS: Stable. O2 saturation greater than 92% on room air. HEENT: Eyes, the sclerae were nonicteric. NECK: Jugular venous distention was not elevated. No lymphadenopathy. CHEST: Full expansion. LUNGS: Crackles throughout both lung pacheco. CARDIOVASCULAR: Regular rate and rhythm with S1, S2, no S3. ABDOMEN: Soft, nontender, nondistended. EXTREMITIES: No clubbing, cyanosis, some edema. NEUROLOGIC: The patient was awake, alert, following commands. A detailed neuro exam was not performed. LABORATORY DATA: Reviewed. White count was low, hemoglobin 6, hematocrit of 18. INR was 1.6. Electrolytes were noted. Troponin level was not elevated. BUN is elevated. Creatinine 1.0. Albumin was 1.8. V/Q scan reviewed. Venous Doppler results were reviewed. Chest x-ray revealed COPD with some increased lung markings. IMPRESSION: 1. Hemoptysis. 2. History of non-small cell lung cancer status post radiation, currently receiving Keytruda. 3. Pancytopenia. 4. Acute drop in hemoglobin. 5. Severe protein malnutrition. 6. Leukopenia. 7. Thrombocytopenia. PLAN: 1. The patient is not a candidate for anticoagulation considering his pancytopenia. He does have IVC filter placement. 2. Continue monitoring for further hemoptysis, suspect secondary to acute bronchitis or pneumonia. 3. Case discussed with Dr. Parsons. 4. We will follow clinical course and make further recommendations. I do appreciate the privilege in sharing in the patient's care. JARED MCDANIEL MD DR: TRENTON/steven JOB#: [id number] / [id number]
[2018-10-12 15:00] VITALS: BP 114/51
--- NOTE | 2018-10-12 15:50 | NUR ---
1 unit of PRBCs transfused, at this time [employer] was down, blood was verified in paper charting, sheet sent to blood bank. No reactions, vital signs stable and documented in paper which is in patients chart.
[2018-10-12] MEDS: fentaNYL PF VIAL 100 MCG/2 ML VIAL IV PRN (17:46)
[2018-10-12 19:00] VITALS: BP 130/57
[2018-10-12 23:59] VITALS: BP 125/56
[2018-10-13 03:07] VITALS: BP 129/61
[2018-10-13] MEDS: fentaNYL PF VIAL 100 MCG/2 ML VIAL IV PRN ×2 (04:46→12:30)
[2018-10-13 05:17] LABS: BASO % 0 % (0-3); EOS % 0 % (0-3); HEMATOCRIT 23.6 % (39.0-53.0); HEMOGLOBIN 7.8 g/dL (13.0-17.5); LYMPH # 0.1 x10^3/uL (1.0-4.8); LYMPH % 6 % (24-48); MEAN CORPUSCULAR HEMOGLOBIN 29 pg (25-35); MEAN CORPUSCULAR HGB CONC 33 g/dL (31-37); MEAN CORPUSCULAR VOLUME 89 fL (79-100); MONO % 2 % (0-9); NEUT # 1.7 x10^3uL (1.8-7.7); NEUT % 91 % (31-73); PLATELET COUNT 32 x10^3/uL (140-400); RED BLOOD COUNT 2.65 x10^6/uL (4.30-5.70); RED CELL DISTRIBUTION WIDTH 19.1 % (11.5-14.5)
[2018-10-13 05:42] LABS: CALCIUM 8.4 mg/dL (8.5-10.1); CREATININE 1.2 mg/dL (0.7-1.3); POTASSIUM 4.3 mmol/L (3.5-5.1)
[2018-10-13 06:35] LABS: WHITE BLOOD COUNT 1.9 x10^3/uL (4.0-11.0)
[2018-10-13 07:00] VITALS: BP 120/58
[2018-10-13] MEDS: MORPHINE ER 15 MG TABLET.ER PO SCH (08:46)
[2018-10-13] MEDS: PANTOPRAZOLE 40 MG TABLET.DR. PO SCH (08:46)
[2018-10-13] MEDS: VITAMIN E 200 UNIT CAPSULE. PO SCH (08:46)
[2018-10-13] MEDS: ZINC SULFATE 220 MG CAPSULE. PO SCH (08:46)
[2018-10-13] MEDS: DOXYCYCLINE HYCLATE 100 MG in IV DEXTROSE 5% 100ML 100 ML IV SCH (08:46)
[2018-10-13] MEDS: VITAMIN A 10,000 UNIT CAPSULE. PO SCH (08:47)
[2018-10-13] MEDS: methylPREDNISolone SOD SUCC PF 125 MG/2 ML VIAL. IV SCH (08:47)
[2018-10-13] MEDS: CHOLECALCIFEROL (VITAMIN D3) 5,000 UNIT CAPSULE PO SCH (08:47)
[2018-10-13] MEDS ORDERED: VITAMIN A 10,000 UNIT CAPSULE. PO ONE (09:00)
--- NOTE | 2018-10-13 09:54 | PDOC ---
PROGRESS NOTES Subjective Subjective feeling better ,want to go home Objective Objective Vital Signs Date Time Temp Pulse Resp B/P (MAP) Pulse Ox O2 Delivery O2 Flow Rate FiO2 10/13/18 08:46 16 Room Air 10/13/18 07:00 97.7 75 120/58 (78) 96 97.7 Intake and Output 10/13/18 07:00 Output Total 550 ml Balance -550 ml Output Urine Total 550 ml Physical Exam Abdomen: Soft (ileostomy bag) Heart: Normal S1, Normal S2 General: Alert, Oriented X3 Lungs: Clear to auscultation MUSCULOSKELETAL: No joint tenderness, No deformity Neuro: Normal speech Psych/Mental Status: Mental status NL Diagnosis Problem List Problems Medical Problems: (1) Acute DVT (deep venous thrombosis) Status: Acute (2) Elevated d-dimer Status: Acute (3) Hemoptysis Status: Acute (4) Hx of cancer of lung Status: Acute (5) Pancytopenia Status: Acute Assessment Assessment Problems Medical Problems: (1) Acute DVT (deep venous thrombosis) Status: Acute (2) Elevated d-dimer Status: Acute (3) Hemoptysis Status: Acute (4) Hx of cancer of lung Status: Acute (5) Pancytopenia Status: Acute FINAL IMPRESSION: 1. Hemoptysis.?Pneumonia+ high probability of PE on VQ scan 2. History of lung cancer,sebacous carcinoma with mets to lung , had a radiation treatment, diagnosed in April last year. He is getting Keytruda infusions every 3 weeks, supposed to have infusion today. 3. Deep venous thrombosis, left lower leg. 4. History of inferior vena cava filter. 5. History of colon cancer status post surgery, had an ileostomy. 6. History of multiple cancers including skin cancer of the nose as well as sebaceous carcinoma of the left groin. 7. Pancytopenia secondary to chemo. PLAN: change to oral antibiotics doxyxycline+prednisone holding on anticoagulation due to low platelets,30,000 Pt has IVC filter. hb 7.6 platelets 30 wbc 1.9. Transfused yesterday neutropenia precautions. d/c home later today,if ok with others Plan Plan of Care Problems Medical Problems: (1) Acute DVT (deep venous thrombosis) Status: Acute (2) Elevated d-dimer Status: Acute (3) Hemoptysis Status: Acute (4) Hx of cancer of lung Status: Acute (5) Pancytopenia Status: Acute Comment Review of Relevant I have reviewed the following items sera (where applicable) has been applied. Labs Laboratory Tests Test 10/13/18 04:44 White Blood Count 1.9 x10^3/uL (4.0-11.0) Red Blood Count 2.65 x10^6/uL (4.30-5.70) Hemoglobin 7.8 g/dL (13.0-17.5) Hematocrit 23.6 % (39.0-53.0) Mean Corpuscular Volume 89 fL (79-100) Mean Corpuscular Hemoglobin 29 pg (25-35) Mean Corpuscular Hemoglobin Concent 33 g/dL (31-37) Red Cell Distribution Width 19.1 % (11.5-14.5) Platelet Count 32 x10^3/uL (140-400) Neutrophils (%) (Auto) 91 % (31-73) Lymphocytes (%) (Auto) 6 % (24-48) Monocytes (%) (Auto) 2 % (0-9) Eosinophils (%) (Auto) 0 % (0-3) Basophils (%) (Auto) 0 % (0-3) Neutrophils # (Auto) 1.7 x10^3uL (1.8-7.7) Lymphocytes # (Auto) 0.1 x10^3/uL (1.0-4.8) Monocytes # (Auto) 0.0 x10^3/uL (0.0-1.1) Eosinophils # (Auto) 0.0 x10^3/uL (0.0-0.7) Basophils # (Auto) 0.0 x10^3/uL (0.0-0.2) Sodium Level 144 mmol/L (136-145) Potassium Level 4.3 mmol/L (3.5-5.1) Chloride Level 112 mmol/L (98-107) Carbon Dioxide Level 26 mmol/L (21-32) Anion Gap 6 (6-14) Blood Urea Nitrogen 39 mg/dL (8-26) Creatinine 1.2 mg/dL (0.7-1.3) Estimated GFR (Cockcroft-Gault) 60.0 Glucose Level 132 mg/dL (70-99) Calcium Level 8.4 mg/dL (8.5-10.1) Medications Current Medications Vitamin A 10,000 unit STK-MED ONCE PO ; Start 10/13/18 at 09:00; Stop 10/13/18 at 09:08; Status DC Vitals/I & O Vital Sign - Last 24 Hours 10/12/18 10/12/18 10/12/18 10/12/18 11:00 15:00 17:46 19:00 Temp 97.6 97.5 97.8 97.6 97.5 97.8 Pulse 76 72 78 Resp 18 18 16 18 B/P (MAP) 117/59 (78) 114/51 (72) 130/57 (81) Pulse Ox 93 97 95 O2 Delivery Room Air Nasal Cannula Room Air 10/12/18 10/12/18 10/12/18 10/13/18 20:00 20:26 23:59 00:26 Temp 97.8 97.8 Pulse 74 Resp 16 22 B/P (MAP) 125/56 (79) Pulse Ox 95 O2 Delivery Room Air Room Air Room Air Room Air 10/13/18 10/13/18 10/13/18 10/13/18 03:07 04:46 05:23 07:00 Temp 97.6 97.7 97.6 97.7 Pulse 86 75 Resp 16 20 22 18 B/P (MAP) 129/61 (83) 120/58 (78) Pulse Ox 94 96 O2 Delivery Room Air Room Air Room Air Room Air 10/13/18 08:46 Resp 16 O2 Delivery Room Air Intake and Output 10/12/18 10/12/18 10/13/18 15:00 23:00 07:00 Output Total 300 ml 250 ml Balance -300 ml -250 ml ALFREDO GUERIN MD October 13, 2018 09:54
[2018-10-13] MEDS ORDERED: DOXY100C2 PO (09:57)
[2018-10-13] MEDS ORDERED: PRED50TA PO (09:57)
--- NOTE | 2018-10-13 10:52 | RAD ---
Chest, 2 views, 10/13/2018: HISTORY: Follow-up hemoptysis Comparison is made to a study from 10/11/2018. A right sided central venous catheter remains in place with its tip lying near the level the atrial caval junction. The heart size is normal. There is calcific plaquing the aorta. There are persistent streaky basilar parenchymal opacities with pleural thickening in the lateral costophrenic angles, right greater than left. These findings are unchanged since 10/11/2018 and much of this process is likely due to scarring. The lateral view does demonstrate obscuration of the posterior aspect of the right hemidiaphragm not evident on 09/13/2018, suggesting a component of right-sided pleural fluid. No new pulmonary abnormality is seen. There are moderate scattered degenerative changes in the spine. IMPRESSION: Bibasilar pleural-parenchymal opacities are unchanged since 10/11/2018. A small amount of right-sided pleural fluid superimposed upon pleural/parenchymal scarring is suspected. Electronically signed by: Aj Barry MD (10/13/2018 10:49 AM) [facility]
--- NOTE | 2018-10-13 11:00 | NUR ---
SS following up with discharge planning. Discharge order on the chart for home with self care. No discharge needs noted at this time. SS will continue to follow for pending discharge needs.
[2018-10-13 11:24] VITALS: BP 129/61
--- NOTE | 2018-10-13 15:43 | PDOC ---
PULMONARY PROGRESS NOTES Subjective PT NOT MORE MICHELLE NO FURTHER HEMOPTYSIS Vitals Vital Signs Date Time Temp Pulse Resp B/P (MAP) Pulse Ox O2 Delivery O2 Flow Rate FiO2 10/13/18 13:00 16 Room Air 10/13/18 11:24 97.5 78 129/61 (83) 97 97.5 ROS: No Nausea, No Chest Pain, No Abdominal Pain, No Increase Cough General: Alert Lungs: Crackles Cardiovascular: S1, S2 Abdomen: Soft Neuro Exam: Alert Extremities: No Edema Labs Laboratory Tests Test 10/12/18 03:30 10/13/18 04:44 White Blood Count 1.6 x10^3/uL (4.0-11.0) 1.9 x10^3/uL (4.0-11.0) Red Blood Count 2.38 x10^6/uL (4.30-5.70) 2.65 x10^6/uL (4.30-5.70) Hemoglobin 6.9 g/dL (13.0-17.5) 7.8 g/dL (13.0-17.5) Hematocrit 21.2 % (39.0-53.0) 23.6 % (39.0-53.0) Mean Corpuscular Volume 89 fL (79-100) 89 fL (79-100) Mean Corpuscular Hemoglobin 29 pg (25-35) 29 pg (25-35) Mean Corpuscular Hemoglobin Concent 33 g/dL (31-37) 33 g/dL (31-37) Red Cell Distribution Width 19.7 % (11.5-14.5) 19.1 % (11.5-14.5) Platelet Count 30 x10^3/uL (140-400) 32 x10^3/uL (140-400) Neutrophils (%) (Auto) 90 % (31-73) 91 % (31-73) Lymphocytes (%) (Auto) 8 % (24-48) 6 % (24-48) Monocytes (%) (Auto) 2 % (0-9) 2 % (0-9) Eosinophils (%) (Auto) 0 % (0-3) 0 % (0-3) Basophils (%) (Auto) 0 % (0-3) 0 % (0-3) Neutrophils # (Auto) 1.4 x10^3uL (1.8-7.7) 1.7 x10^3uL (1.8-7.7) Lymphocytes # (Auto) 0.1 x10^3/uL (1.0-4.8) 0.1 x10^3/uL (1.0-4.8) Monocytes # (Auto) 0.0 x10^3/uL (0.0-1.1) 0.0 x10^3/uL (0.0-1.1) Eosinophils # (Auto) 0.0 x10^3/uL (0.0-0.7) 0.0 x10^3/uL (0.0-0.7) Basophils # (Auto) 0.0 x10^3/uL (0.0-0.2) 0.0 x10^3/uL (0.0-0.2) Sodium Level 141 mmol/L (136-145) 144 mmol/L (136-145) Potassium Level 4.5 mmol/L (3.5-5.1) 4.3 mmol/L (3.5-5.1) Chloride Level 109 mmol/L (98-107) 112 mmol/L (98-107) Carbon Dioxide Level 27 mmol/L (21-32) 26 mmol/L (21-32) Anion Gap 5 (6-14) 6 (6-14) Blood Urea Nitrogen 34 mg/dL (8-26) 39 mg/dL (8-26) Creatinine 0.9 mg/dL (0.7-1.3) 1.2 mg/dL (0.7-1.3) Estimated GFR (Cockcroft-Gault) 83.7 60.0 Glucose Level 127 mg/dL (70-99) 132 mg/dL (70-99) Calcium Level 8.5 mg/dL (8.5-10.1) 8.4 mg/dL (8.5-10.1) Laboratory Tests Test 10/13/18 04:44 White Blood Count 1.9 x10^3/uL (4.0-11.0) Red Blood Count 2.65 x10^6/uL (4.30-5.70) Hemoglobin 7.8 g/dL (13.0-17.5) Hematocrit 23.6 % (39.0-53.0) Mean Corpuscular Volume 89 fL (79-100) Mean Corpuscular Hemoglobin 29 pg (25-35) Mean Corpuscular Hemoglobin Concent 33 g/dL (31-37) Red Cell Distribution Width 19.1 % (11.5-14.5) Platelet Count 32 x10^3/uL (140-400) Neutrophils (%) (Auto) 91 % (31-73) Lymphocytes (%) (Auto) 6 % (24-48) Monocytes (%) (Auto) 2 % (0-9) Eosinophils (%) (Auto) 0 % (0-3) Basophils (%) (Auto) 0 % (0-3) Neutrophils # (Auto) 1.7 x10^3uL (1.8-7.7) Lymphocytes # (Auto) 0.1 x10^3/uL (1.0-4.8) Monocytes # (Auto) 0.0 x10^3/uL (0.0-1.1) Eosinophils # (Auto) 0.0 x10^3/uL (0.0-0.7) Basophils # (Auto) 0.0 x10^3/uL (0.0-0.2) Sodium Level 144 mmol/L (136-145) Potassium Level 4.3 mmol/L (3.5-5.1) Chloride Level 112 mmol/L (98-107) Carbon Dioxide Level 26 mmol/L (21-32) Anion Gap 6 (6-14) Blood Urea Nitrogen 39 mg/dL (8-26) Creatinine 1.2 mg/dL (0.7-1.3) Estimated GFR (Cockcroft-Gault) 60.0 Glucose Level 132 mg/dL (70-99) Calcium Level 8.4 mg/dL (8.5-10.1) Medications Active Scripts Medications Dose Route/Sig Max Daily Dose Days Date Category Dose Instructions Potassium Chloride 20 Meq Tablet.er 20 Meq PO BID 02/09/18 Reported Lasix (Furosemide) 40 Mg Tablet 1 Tab PO DAILY 02/09/18 Reported Vitamin D2 (Ergocalciferol (Vitamin D2)) 50,000 Unit Capsule 1 Cap PO BID 02/09/18 Reported Vitamin D3 (Cholecalciferol (Vitamin D3)) 5,000 Unit Tablet 1 Tab PO DAILY 02/09/18 Reported Zofran (Ondansetron Hcl) 4 Mg Tablet 1 Tab PO Q8HRS PRN 02/09/18 Reported Morphine Sulfate Er (Morphine Sulfate) 15 Mg Tablet.er 1 Tab PO BID 02/09/18 Reported Oxycodone Hcl Immed.release (Oxycodone Hcl) 10 Mg Tablet 1 Tab PO BID 02/09/18 Reported Ferrous Sulfate 325 Mg Tablet 1 Tab PO TID 02/09/18 Reported Morphine Sulfate 15 Mg Tablet 1-2 Tab PO Q6HRS PRN 02/08/18 Reported [1/2ns w/ kcl & mag] 1 L IV DAILY 02/08/18 Reported 1/2 ns w/ 40 meq of kcl, 20 meq of magnesium -1 liter 6 days a week. runs over 12 hours Zinc (Zinc Amino Acid Chelate) 50 Mg Tablet 50 Mg PO DAILY 01/08/16 Reported Vitamin B-12 (Cyanocobalamin (Vitamin B-12)) 1,000 Mcg Tablet 1 Tab PO DAILY 07/27/15 Reported Protonix (Pantoprazole Sodium) 40 Mg Tablet.dr 1 Tab PO DAILY 03/28/15 Rx Vitamin C (Ascorbic Acid) 1,000 Mg Tablet 1,000 Mg PO DAILY 12/29/13 Reported Vitamin E 200 Unit Capsule 400 Unit PO DAILY 08/01/13 Reported Vitamin A 8,000 Unit Capsule 8,000 Unit PO DAILY 08/01/13 Reported Impression . 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 Acute bronchitis Pneumonia Hemoptysis related to above H/O DVT Plan . 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 received radiation therapy to the right lower lobe lung nodule, was completed on 04/26/2018. Keytruda was started on 04/28/2018, and he is responding reasonably well. Plan to continue Keytruda as outpatient. 2. Deep venous thrombosis of the left lower extremity, diagnosed on 10/11/2018. He is not a candidate for anticoagulation because of thrombocytopenia. He has an IVC filter in place. 3. Pulmonary embolism diagnosed by V/Q scan on 10/11/2018. He is asymptomatic, does not have any chest pain or dyspnea. He is not a candidate for anticoagulation. I discussed with Dr. Jared Mcdaniel who agrees. I also discussed with Dr. Vinaya Koduri. 4. Cirrhosis of the liver. 5. Pancytopenia due to cirrhosis. 6. Hemoptysis. Continue evaluation and management per Dr. Mcdaniel. JARED MCDANIEL MD October 13, 2018 15:43
--- NOTE | 2018-10-13 15:45 | NUR ---
Discharge instructions reviewed with patient and . Follow ups and prescriptions given to patient. Both verbalize understanding.
--- NOTE | 2018-10-14 15:31 | PDOC ---
Provider Note Provider Note Discharge summary dictated.#[id number]. ALFREDO GUERIN MD October 14, 2018 15:31
--- NOTE | 2018-10-15 01:05 | DS ---
DATE OF DISCHARGE: 10/13/2018 REASON FOR ADMISSION TO THE HOSPITAL: Coughing up blood, hemoptysis. CONSULTATIONS: 1. Dr. Cruz. 2. Dr. Parsons. PROCEDURES DONE: 1. Venous Doppler. 2. V/Q scan. HOSPITAL COURSE: The patient is a 68-year-old male with history of metastasis to the lung. He is getting radiation. He got radiation 6 months ago, did a chemotherapy now. He was having some cough with bloody sputum, was admitted to the hospital. Chest x-ray shows some atelectasis. The patient had a DVT positive on the Doppler. The patient also has IVC filter. His platelets were low at 30,000. He was getting chemotherapy. Last chemo was couple of weeks ago and he was supposed to start a new cycle of chemo. The patient was admitted to the hospital, seen by Pulmonology, was treated with IV doxycycline. It was thought his hemoptysis is probably from bronchitis. The patient had a V/Q scan that shows high probability for pulmonary embolism, but unfortunately he is not a candidate for anticoagulation secondary to his platelets being less than 30,000. The patient has IVC filter as mentioned, has a DVT. The patient was followed by Hematology/Oncology, Pulmonology in the hospital, he was feeling better. Oxygen was stable. He was not hemodynamically unstable. It was decided that the patient could be discharged home and follow as outpatient. Doxycycline 100 mg twice daily for 7 days and follow with Oncology in 1 week, PCP in 1 week. FINAL DIAGNOSES: 1. Acute bronchitis. 2. Hemoptysis secondary to bronchitis. 3. Possible pulmonary embolism. 4. Deep vein thrombosis, left lower extremity. 5. History of inferior vena cava filter. 6. Pancytopenia including low white count was 1, hemoglobin 7, platelets 30,000. 7. 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 8. History of colon cancer, had a colon resection and ileostomy. 9. Skin cancer of the nose, had reconstructive surgery and patient discharged home. FOLLOWUP: Follow with PCP. ALFREDO GUERIN MD DR: KENDAL/steven JOB#: [id number] / [id number] Nikolay Conklin MD
== END 2018-10-13 15:49 | disposition home or self-care (01) | DRG 871 ==
LOC: ER 04:23 → 2 NORTH 06:45
PROVIDERS: ADMIT Internal Medicine; ATTEND Internal Medicine
PROC: 30233N1 Transfusion of Nonautologous Red Blood Cells into Peripheral Vein, Percutaneous Approach (ICD-10-PCS; principal; 2018-10-11)
DX: A41.9 Sepsis, unspecified organism (principal); I26.99 Other pulmonary embolism without acute cor pulmonale; E43 Unspecified severe protein-calorie malnutrition; D61.810 Antineoplastic chemotherapy induced pancytopenia; J44.0 Chronic obstructive pulmonary disease with (acute) lower respiratory infection; I82.412 Acute embolism and thrombosis of left femoral vein; C78.00 Secondary malignant neoplasm of unspecified lung; J98.11 Atelectasis; D61.818 Other pancytopenia; J20.9 Acute bronchitis, unspecified; K74.60 Unspecified cirrhosis of liver; T45.1X5A Adverse effect of antineoplastic and immunosuppressive drugs, initial encounter; C44.99 Other specified malignant neoplasm of skin, unspecified; Z87.11 Personal history of peptic ulcer disease; Z88.6 Allergy status to analgesic agent; Z91.041 Radiographic dye allergy status; Z90.49 Acquired absence of other specified parts of digestive tract; Z85.038 Personal history of other malignant neoplasm of large intestine; Z95.828 Presence of other vascular implants and grafts; Z92.3 Personal history of irradiation; Y92.89 Other specified places as the place of occurrence of the external cause; Z87.891 Personal history of nicotine dependence; Z68.22 Body mass index [BMI] 22.0-22.9, adult
CPT/HCPCS: 36415; 36430; 71046; 78582; 80048; 80053; 82553; 83605; 83880; 84484; 85007; 85025; 85027; 85379; 85610; 85730; 86850; 86900; 86901; 86920; 93005; 93970; 96374; A9540; A9558; J2930; J3010; J3490; J8540; P9016; 97110; 99285-25

== ENCOUNTER → 2018-11-04 | Outpatient (CLI) | payer MEDICARE, OTHER ==
[2018-10-13 11:24] VITALS: BP 129/61
[~2018-11-04] MED LIST changes: +DOXY100C2 PO; +PRED50TA PO
--- NOTE | 2018-11-04 11:21 | RAD ---
FDG tumor localization scan, PET/CT, 11/04/2018: History: Lung cancer, sebaceous cancer, restaging Following IV injection of 14.3 mCi of 18 F-FDG, imaging was performed from the skull base to the proximal thighs. The noncontrast CT component was performed for attenuation correction and anatomic localization rather than for primary diagnosis. The patient's blood glucose level at the time of injection 89 MG/DL. There is increased activity in region of the right mandibular condyle which is change. This is likely on an arthritic basis. The neck activity is otherwise unremarkable. There are multiple areas of increased activity along the course of the Port-A-Cath on a technical basis related to the injection process. Small peripheral foci of increased activity involving primarily the pleura in the right lower chest have regressed. The maximum SUV in this region on the previous study was 5.5 compared to a value of 4.0 on the current exam. The CT component shows that the pleural-parenchymal opacities have progressed slightly. A 1.5 cm nodule abutting the diaphragm in the right lower lobe is unchanged in size. It does not demonstrate abnormal FDG uptake on the current study. Normal GI tract and urinary tract activity is present in the abdomen. A colostomy is noted just to the right of midline. Multiple foci of abnormal FDG uptake evident at the left groin on the previous study have regressed. There is currently only minimal low level FDG uptake with a maximum SUV of 3.3 compared to values approximately 9.0 on the previous study. There is streaky subcutaneous edema in the pelvis and gluteal regions, worse on the left, with involvement of the visualized upper left thigh. This edema has worsened. Ill-defined soft tissue tissue densities at the left groin appear unchanged. Incidental CT findings include the presence of hepatic cirrhosis with splenomegaly and diffuse mesenteric edema with mild ascites. There is calcific plaquing of the aorta and its branches including the coronary arteries. An inferior vena cava filter is in place. IMPRESSION: 1. Multiple hypermetabolic foci at the left groin level have regressed. 2. While the right basilar pleural-parenchymal opacities have progressed slightly on the CT component, there is a lesser degree of FDG uptake at these levels, suggesting a favorable response to therapy.
== END | disposition home or self-care (01) ==
LOC: PETSC 07:58
PROVIDERS: ATTEND Internal Medicine Hematology & Oncology
DX: Z01.89 Encounter for other specified special examinations (principal); C44.90 Unspecified malignant neoplasm of skin, unspecified; R16.1 Splenomegaly, not elsewhere classified; K74.60 Unspecified cirrhosis of liver; R53.83 Other fatigue; R18.8 Other ascites; Z85.118 Personal history of other malignant neoplasm of bronchus and lung
CPT/HCPCS: 78815; A9552

== ENCOUNTER → 2019-01-28 | Outpatient (CLI) | payer MEDICARE, OTHER ==
[2018-12-21 15:00] VITALS: BP 101/42
[~2019-01-28] MED LIST changes: +CYAN-25 PO; -CYAN10005 PO; -PANT40TA3 PO; -PANT40TA5 PO; +PANT40TA77 PO; +PEMB100V IV
--- NOTE | 2019-01-28 16:00 | RAD ---
Exam:Right ribs with PA chest Date: 01/28/2019 12:00 AM Comparison: 01/14/2019 Indication: Right-sided rib pain Findings/ Impression: The heart is not enlarged. Right IJ vascular catheter tip projects over the distal SVC/proximal right atrium. Atherosclerotic calcifications of aorta are seen. Small left pleural effusion. Small to moderate right pleural effusion. The opacities right lung base likely atelectasis, stable. Nodular opacity left midlung is stable. Evaluation for rib fracture is limited given decreased bone mineral density. AP, Oblique and Spot images of the right ribs are negative for acute displaced rib fracture. Negative focal pleural elevation. Symmetrical intercostal spacing. It is of note that an acute non-displaced rib fracture can be in-apparent on initial post-trauma imaging. Electronically signed by: Adalid Tripp MD (01/28/2019 3:57 PM) [facility]
== END | disposition home or self-care (01) ==
LOC: RAD 09:05
PROVIDERS: ATTEND Nurse Practitioner Adult Health
DX: J90 Pleural effusion, not elsewhere classified (principal); I70.0 Atherosclerosis of aorta
CPT/HCPCS: 71101

== ENCOUNTER → 2019-02-10 | Outpatient (CLI) | payer MEDICARE, OTHER ==
[2018-12-21 15:00] VITALS: BP 101/42
--- NOTE | 2019-02-11 11:53 | RAD ---
Examination: PET W CT SKULL TO MIDTHIGH HISTORY: Restaging of lung cancer. Colon cancer and sebaceous cancer also are reported. COMPARISON/CORRELATION: 11/04/2018 PET/CT exam FINDINGS: Net dose 12.9 mCi F-18 FDG was administered intravenously for purposes of whole body PET/CT exam. Blood glucose level at the time of radiotracer administration was 118 mg/dL. Hepatic reference uptake is SUV max of 2.1 . Uptake of radiotracer involving visualized head and neck is unremarkable. Right internal jugular infusion port catheter is present. Bilateral upper lung field linear scarring or atelectasis is present. Coronary arterial calcifications are notable. Emphysematous involvement of the lung pacheco is mild. Very small right basilar pleural effusion noted. Bilateral basilar pleural thickening is present. Nodular thickening involving the right lateral, anterior basilar pleural is mildly decreased and has SUV max less than 2.0. Distention of the gallbladder is noted. Hepatic cirrhosis is noted. Hepatic cyst evident. Splenomegaly is notable. Spleen measures up to 21 cm longitudinal. Upper abdominal varices noted. Varices about the distal esophagus also present. Perihepatic ascites is present. Inferior vena cava filter is present. Bilateral renal cysts are noted. Right lower quadrant ostomy is present. Urinary bladder is mostly decompressed. Saphenous edema involving the proximal left lower extremity is evident. Uptake of radiotracer involving the abdomen and pelvis is unremarkable. Bilateral hip joint degenerative changes are present. IMPRESSION: Slight decrease in right anterior basilar pleural thickening. No marked or otherwise significant uptake. No new foci of abnormal uptake. Hepatic cirrhosis, ascites, and findings of portal hypertension including splenic megaly are similar to the prior exam. PQRS Compliance Statement: One or more of the following individualized dose reduction techniques were utilized for this examination: 1. Automated exposure control 2. Adjustment of the mA and/or kV according to patient size 3. Use of iterative reconstruction technique Electronically signed by: Vniod Almaguer MD (02/11/2019 11:50 AM) [facility] [place]
== END | disposition home or self-care (01) ==
LOC: PETSC 09:14
PROVIDERS: ATTEND Internal Medicine Hematology & Oncology
DX: C44.99 Other specified malignant neoplasm of skin, unspecified (principal); C44.92 Squamous cell carcinoma of skin, unspecified; C34.2 Malignant neoplasm of middle lobe, bronchus or lung; R53.83 Other fatigue; K74.60 Unspecified cirrhosis of liver; K76.6 Portal hypertension; J81.1 Chronic pulmonary edema; K82.8 Other specified diseases of gallbladder; K76.89 Other specified diseases of liver; R16.1 Splenomegaly, not elsewhere classified
CPT/HCPCS: 78815; A9552

== ENCOUNTER 2019-02-19 04:26 | Emergency (ER) | payer MEDICARE, OTHER ==
[~2019-02-19] VITALS: Ht 167.6 cm; Wt 62.6 kg
[~2019-02-19 04:26] MED LIST changes: +MORP-15 PO; -MORP15TA3 PO
[2019-02-19 05:23] LABS: BILIRUBIN,URINE NEGATIVE (NEG); CLARITY,URINE CLEAR; COLOR,URINE YELLOW; NITRITE,URINE NEGATIVE (NEG); PH,URINE 6.5; PROTEIN,URINE NEGATIVE (NEG-TRACE); UROBILINOGEN,URINE 0.2 mg/dL (0.2 mg/dL)
[2019-02-19 05:30] LABS: BACTERIA,URINE 0 /HPF (0-FEW); SQUAMOUS EPITHELIAL CELL,UR OCC /LPF; WBC,URINE OCC /HPF (0-4)
--- NOTE | 2019-02-19 05:41 | PHYS DOC ---
Past Medical History Past Medical History: Cancer, COPD, Liver Disease Additional Past Medical Histor: MULT BLEEDING STOMACH ULCERS, esoph varices, sebaceous carcinoma, colon CA Past Surgical History: Cancer Surgery Additional Past Surgical Histo: COLON RESECTION, ILEOSTOMY, NOSE REBUILT AFTER A CARCINOMA, skin graft Alcohol Use: None Drug Use: None Adult General Chief Complaint Chief Complaint: NOSEBLEED HPI HPI Patient is a 68 year old male with history of colon and lung cancers and DVT who presents with nose bleed. He reports waking up this morning around 4am when he spitted up some sputum with small streaks of blood. With his extensive medical history, he decided to come to our ED to get it check out even though he does not have any other symptoms or signs. Denies any chest pain, coughing or SOB. There is no anterior nose bleed. Pt's thought that the blood might have come from a small abrasion in left nare. He also reports having low platelets chronically. Denies any anticoagulants use. Reports just received dose of Keytruda yesterday. Review of Systems Review of Systems Constitutional: Denies fever or chills Eyes: Denies redness or eye pain HENT: Denies nasal congestion or sore throat Respiratory: Denies cough or shortness of breath Cardiovascular: Denies chest pain or palpitations GI: Denies abdominal pain, nausea, or vomiting : Denies dysuria or hematuria Musculoskeletal: Denies back pain or joint pain Integument: Denies rash or skin lesions Neurologic: Denies headache, focal weakness or sensory changes Complete systems were reviewed and found to be within normal limits, except as documented in this note. Allergies Allergies Allergies Coded Allergies Type Severity Reaction Last Updated Verified Iodinated Contrast Media Allergy Intermediate Hives, PT OK WITH PREMED 03/22/18 Yes lactose Allergy Intermediate 02/09/18 Yes acetaminophen Adverse Reaction Severe bleeding 02/09/18 Yes ibuprofen Adverse Reaction Severe bleeding 02/09/18 Yes Physical Exam Physical Exam Constitutional: Well developed, well nourished, no acute distress, non-toxic appearance HENT: Normocephalic, atraumatic, oropharynx moist, small anterior septal abrasion in left nare which currently is nonbleeding, poor dentition noted, no blood noted in pharynx, Patient with limited mouth opening due to prior surgery on left Eyes: PERRL, EOMI, conjunctiva normal, no discharge Neck: Normal range of motion, no tenderness, supple Cardiovascular: Heart rate normal, regular rhythm Lungs & Thorax: Bilateral breath sounds clear to auscultation, no wheezing Abdomen: Soft, no tenderness Skin: Warm, dry, no erythema, no rash Extremities: No tenderness, ROM intact, no edema Neurologic: Alert and oriented X 3, normal motor function, normal sensory function, no focal deficits noted Psychologic: Affect normal, judgement normal Current Patient Data Vital Signs Vital Signs Date Time Temp Pulse Resp B/P (MAP) Pulse Ox O2 Delivery O2 Flow Rate FiO2 02/19/19 04:32 97.7 75 17 180/77 (111) 97 Room Air 97.7 Lab Values Laboratory Tests Test 02/19/19 04:45 02/19/19 05:25 Urine Collection Type Unknown Urine Color Yellow Urine Clarity Clear Urine pH 6.5 Urine Specific Pablo 1.010 Urine Protein Negative mg/dL (NEG-TRACE) Urine Glucose (UA) Negative mg/dL (NEG) Urine Ketones (Stick) Negative mg/dL (NEG) Urine Blood Trace (NEG) Urine Nitrite Negative (NEG) Urine Bilirubin Negative (NEG) Urine Urobilinogen Dipstick 0.2 mg/dL (0.2 mg/dL) Urine Leukocyte Esterase Negative (NEG) Urine RBC 1-2 /HPF (0-2) Urine WBC Occ /HPF (0-4) Urine Squamous Epithelial Cells Occ /LPF Urine Bacteria 0 /HPF (0-FEW) White Blood Count 1.5 x10^3/uL (4.0-11.0) *L Red Blood Count 2.73 x10^6/uL (4.30-5.70) L Hemoglobin 7.6 g/dL (13.0-17.5) L Hematocrit 23.2 % (39.0-53.0) L Mean Corpuscular Volume 85 fL (79-100) Mean Corpuscular Hemoglobin 28 pg (25-35) Mean Corpuscular Hemoglobin Concent 33 g/dL (31-37) Red Cell Distribution Width 19.6 % (11.5-14.5) H Platelet Count 24 x10^3/uL (140-400) *L Neutrophils (%) (Auto) 67 % (31-73) Lymphocytes (%) (Auto) 15 % (24-48) L Monocytes (%) (Auto) 9 % (0-9) Eosinophils (%) (Auto) 9 % (0-3) H Basophils (%) (Auto) 1 % (0-3) Neutrophils # (Auto) 1.0 x10^3/uL (1.8-7.7) L Lymphocytes # (Auto) 0.2 x10^3/uL (1.0-4.8) L Monocytes # (Auto) 0.1 x10^3/uL (0.0-1.1) Eosinophils # (Auto) 0.1 x10^3/uL (0.0-0.7) Basophils # (Auto) 0.0 x10^3/uL (0.0-0.2) Platelet Estimate Pending Sodium Level 145 mmol/L (136-145) Potassium Level 4.0 mmol/L (3.5-5.1) Chloride Level 112 mmol/L (98-107) H Carbon Dioxide Level 27 mmol/L (21-32) Anion Gap 6 (6-14) Blood Urea Nitrogen 10 mg/dL (8-26) Creatinine 1.2 mg/dL (0.7-1.3) Estimated GFR (Cockcroft-Gault) 60.0 BUN/Creatinine Ratio 8 (6-20) Glucose Level 148 mg/dL (70-99) H Calcium Level 8.6 mg/dL (8.5-10.1) Magnesium Level 1.8 mg/dL (1.8-2.4) Total Bilirubin 0.9 mg/dL (0.2-1.0) Aspartate Amino Transferase (AST) 17 U/L (15-37) Alanine Aminotransferase (ALT) 8 U/L (16-63) L Alkaline Phosphatase 103 U/L (46-116) Total Protein 6.2 g/dL (6.4-8.2) L Albumin 2.4 g/dL (3.4-5.0) L Albumin/Globulin Ratio 0.6 (1.0-1.7) L Laboratory Tests 02/19/19 05:25 Laboratory Tests 02/19/19 05:25 EKG EKG [] Radiology/Procedures Radiology/Procedures PROCEDURE: CHEST PA & LATERAL PA and lateral chest. HISTORY: Cough PA and lateral views were taken of the chest. There is a central line on the right unchanged. There is pleural thickening or a small pleural effusion on the right. There is mild atelectasis or infiltrate or scarring in the right lung base without change from the recent study. There is pleural thickening on the left. There are no new infiltrates. Heart is normal in size. IMPRESSION: 1. No significant change compared to the recent study Electronically signed by: Dat Akhtar MD (02/19/2019 5:42 AM) [facility] Course & Med Decision Making Course & Med Decision Making Pertinent Labs and Imaging studies reviewed. (See chart for details) Patient presents with concern for bleeding from left nare causing him to "spit up some blood streaked sputum". Denies hemoptysis. Denies trauma. Small nonbleeding abrasion noted to anterior septum on left. VS stable. Patient reports he feels well. Hx of recent immunotherapy. Labs obtained and posted to chart. Pancytopenia noted which appears baseline per [employer] review. CXR st able. Patient reports he feels well enough and requesting to go home and follow closely with PCP and oncologist. Patient stable for discharge with outpatient follow-up with PCP/Oncologist. Di scussed findings and plan with patient and family, who acknowledge understanding and agreement. Dragon Disclaimer Dragon Disclaimer This electronic medical record was generated, in whole or in part, using a voice recognition dictation system. Departure Departure Impression: Primary Impression: Nosebleed Additional Impression: Pancytopenia due to chemotherapy Disposition: 01 HOME, SELF-CARE Condition: STABLE Referrals: KAMRYN PADGETT (PCP) TOBIAS LINDSEY MD Patient Instructions: Neutropenia, Nosebleed, [id number], Thrombocytopenia, [id number] Additional Instructions: Your blood counts appears similar to prior per [employer] review. Please follow closely with your doctor for re-evaluation. Scripts Sodium Chloride (OCEAN) 104 Ml [place] 2 SPRAYS NS QID, #1 BOTTLE Prov: JADEN PERES DO 02/19/19 Problem Qualifiers JADEN PERES DO Feb 19, 2019 05:41
[2019-02-19 05:44] LABS: BASO % 1 % (0-3); EOS # 0.1 x10^3/uL (0.0-0.7); EOS % 9 % (0-3); HEMATOCRIT 23.2 % (39.0-53.0); HEMOGLOBIN 7.6 g/dL (13.0-17.5); LYMPH # 0.2 x10^3/uL (1.0-4.8); LYMPH % 15 % (24-48); MEAN CORPUSCULAR HEMOGLOBIN 28 pg (25-35); MEAN CORPUSCULAR HGB CONC 33 g/dL (31-37); MEAN CORPUSCULAR VOLUME 85 fL (79-100); MONO # 0.1 x10^3/uL (0.0-1.1); MONO % 9 % (0-9); NEUT % 67 % (31-73); RED BLOOD COUNT 2.73 x10^6/uL (4.30-5.70); RED CELL DISTRIBUTION WIDTH 19.6 % (11.5-14.5)
--- NOTE | 2019-02-19 05:45 | RAD ---
PA and lateral chest. HISTORY: Cough PA and lateral views were taken of the chest. There is a central line on the right unchanged. There is pleural thickening or a small pleural effusion on the right. There is mild atelectasis or infiltrate or scarring in the right lung base without change from the recent study. There is pleural thickening on the left. There are no new infiltrates. Heart is normal in size. IMPRESSION: 1. No significant change compared to the recent study Electronically signed by: Dat Akhtar MD (02/19/2019 5:42 AM) [facility]
[2019-02-19 05:47] LABS: PROTHROMBIN TIME PATIENT 19.9 SEC (11.7-14.0)
[2019-02-19 05:51] LABS: WHITE BLOOD COUNT 1.5 x10^3/uL (4.0-11.0)
[2019-02-19 05:52] LABS: PLATELET COUNT 24 x10^3/uL (140-400)
[2019-02-19 05:56] LABS: CALCIUM 8.6 mg/dL (8.5-10.1); CREATININE 1.2 mg/dL (0.7-1.3)
[2019-02-19] MEDS ORDERED: SODI104S NS (05:58)
[2019-02-19 06:01] LABS: ALBUMIN 2.4 g/dL (3.4-5.0); ALBUMIN/GLOBULIN RATIO 0.6 (1.0-1.7); MAGNESIUM 1.8 mg/dL (1.8-2.4); TOTAL BILIRUBIN 0.9 mg/dL (0.2-1.0); TOTAL PROTEIN 6.2 g/dL (6.4-8.2)
[2019-02-19 06:34] VITALS: BP 138/64
[2019-02-19 07:59] LABS: % BANDS 1 % (0-9); % BASOS 1 % (0-3); % EOS 3 % (0-5); % LYMPHS 11 % (24-48); % MONOS 11 % (0-10); % SEGS 73 % (35-66); PLT ESTIMATE DECREASED (ADEQUATE)
== END 2019-02-19 06:50 | disposition home or self-care (01) ==
LOC: ER 04:26
DX: R04.0 Epistaxis (principal); D61.810 Antineoplastic chemotherapy induced pancytopenia; J44.9 Chronic obstructive pulmonary disease, unspecified; Z85.038 Personal history of other malignant neoplasm of large intestine; Z88.6 Allergy status to analgesic agent; Z91.041 Radiographic dye allergy status; Z91.011 Allergy to milk products
CPT/HCPCS: 36415; 71046; 80053; 81001; 83735; 85007; 85025; 85610; 85730; 99285-25

== ENCOUNTER → 2019-06-24 | Outpatient (CLI) | payer MEDICARE, OTHER ==
[~2019-06-24] MED LIST changes: +POTA20TA4 PO; -POTA20TA82 PO; +SODI104S NS
--- NOTE | 2019-06-24 15:49 | RAD ---
Examination: PET W CT SKULL TO MIDTHIGH History: Restaging of sebaceous cancer Comparison/Correlation: 02/10/2019 PET/CT exam FINDINGS: Net dose 15.87 mCi F-18 FDG was administered intravenously for purposes of PET/CT exam. Blood glucose level at the time of radiotracer administration was 95 mg/dL. Imaging was performed from the skull base to the proximal thighs. Hepatic reference uptake is SUV max of 2 . Right-sided infusion port catheter is identified with the tip terminating at the superior cavoatrial junction. Retained radiotracer within this catheter is noted incidentally. Uptake of radiotracer involving the visualized head is normal. Surgical clips at the right side of the lower head and upper neck noted. Uptake of radiotracer involving the visualized chest is unremarkable. Coronary arterial calcification is evident. Minimal discoid atelectasis or scarring involving the upper lung pacheco and lower lung pacheco noted. Centrilobular emphysema noted. No suspicious infiltrates or pleural effusions. No pneumothorax. No enlarged thoracic lymph nodes. Bilateral basal pleural thickening again seen. Nodular contour of the liver again seen. Distended gallbladder again seen. Marked splenomegaly is unchanged. Renal cysts are present Right lower quadrant ostomy is present. Circumferential wall thickening of jejunal loops of bowel which may represent contraction or spasm evident. No abnormal loculation of radiotracer. Suture material is present involving upper abdominal bowel and right lower quadrant bowel. Suture material involving the low anterior pelvic region and appears to correspond with a Smith's pouch. Bilateral renal cysts are present. Inferior vena cava filter present. Marked calcification involving the abdominal aorta and iliac arteries noted. Subcutaneous edema involving the proximal left lower extremity is evident. Urinary bladder is circumferentially thickened and decompressed. Ascites about the right hepatic lobe inferior tip is decreased compared to the prior exam. No change in bony structures. IMPRESSION: No abnormal uptake to suggest active neoplastic or metastatic disease. No abnormal uptake to suggest lymphadenopathy. Hepatic cirrhosis and findings of portal hypertension including again seen. Decreased ascites. Subcutaneous edema about the proximal left thigh and hip similar to the prior exam. PQRS Compliance Statement: One or more of the following individualized dose reduction techniques were utilized for this examination: 1. Automated exposure control 2. Adjustment of the mA and/or kV according to patient size 3. Use of iterative reconstruction technique Electronically signed by: Vinod Almaguer MD (06/24/2019 3:45 PM) [facility]
== END | disposition home or self-care (01) ==
LOC: PETSC 07:49
PROVIDERS: ATTEND Internal Medicine Hematology & Oncology
DX: C44.89 Other specified malignant neoplasm of overlapping sites of skin (principal); K76.6 Portal hypertension; K74.60 Unspecified cirrhosis of liver; I25.10 Atherosclerotic heart disease of native coronary artery without angina pectoris; J43.2 Centrilobular emphysema; J92.9 Pleural plaque without asbestos; N28.1 Cyst of kidney, acquired; K82.8 Other specified diseases of gallbladder; R18.8 Other ascites
CPT/HCPCS: 78815; A9552

== ENCOUNTER → 2019-09-16 | Outpatient (CLI) | payer MEDICARE, OTHER ==
--- NOTE | 2019-09-16 17:56 | RAD ---
EXAM: PET W CT SKULL TO MIDTHIGH EXAM DATE: 09/16/2019 INDICATION: Lung cancer restaging RADIOPHARMACEUTICAL: 15.77 mCi of F-18 Fluorodeoxyglucose (FDG) I.V. via the right chest port. TECHNIQUE: Patient weight: 134 pounds. Following at least four-hour fasting, the patient's blood glucose was 85 mg/dl. Approximately 1 hour after administration of FDG, overlapping emission scanning was performed from the orbital meatal line through the pelvis. A low-dose CT was performed for attenuation correction purposes and anatomic localization. Fused images of PET and CT were reviewed. Any standardized uptake values (SUV) reported are maximum values within a volume region of interest, expressed in gm/ml. COMPARISON: PET CT of June 24, 2019 and 02/10/2019 FINDINGS: PET: Mildly enlarged (1.4 cm) but unchanged in size left para-aortic lymph node shows abnormal FDG uptake to a maximum SUV of 6.86 (axial image 156 of series 2 on the attenuation correction series and image 156 on the axial diffusion series. Retained radiopharmaceutical in the chest port and tubing is again identified. Physiologic activity in the brain, salivary glands, gastrointestinal and urinary tract as well as in the musculoskeletal system is however noted, implying successful radiopharmaceutical delivery. No other abnormal FDG uptake suspicious for metabolically active recurrent or residual tumor. CT: Head and neck shows postsurgical changes along the right-sided face and neck. No mass or adenopathy. Chest shows gynecomastia minimal scarring of the right lung apex and pleural parenchymal scarring in the peripheral anterior and posterior right lower lobes. No pleural effusion or thoracic adenopathy by CT size criteria. Right chest port and multivessel quadrant calcifications are incidentally noted. Abdomen shows cirrhosis with splenomegaly a mild mesenteric edema. Trace ascites is also noted. Gallbladder is distended. There is a 6 cm cyst in the right hepatic lobe, segment 5 mildly exerting mass effect on the IVC which has a filter in place more inferiorly. There is extensive dense calcifications of the abdominal aorta. Bilateral renal cortical cysts show no metabolic activity require no additional follow-up. There are surgical changes from previous bowel surgeries with diverting colostomy in the right mid abdomen. There are several loops of bowel that show wall thickening but no pneumatosis or portal venous gas. No free air. There is edema extensively present in the abdominal mesentery Pelvis shows evidence of a previous partial colectomy with the rectal stump still in place. Urinary bladder shows mild perivesical stranding but no obvious wall thickening or distention. Right paravesical 11 mm calcification likely reflects a phlebolith. The left thigh is slightly thicker than the right and there is anterior left thigh soft tissue edema not as apparent on the right. IMPRESSION: 1. Previously metabolically inactive left para-aortic 1.4 cm abdominal lymph node now shows FDG uptake to max SUV of 6.86. Although nonspecific, attention on follow-up is recommended to help exclude tumor recurrence. Interventional radiology consult could be considered to assess feasibility of a percutaneous core needle biopsy if clinically warranted. Otherwise no abnormal FDG uptake suspicious for tumor recurrence. 2. There persists retention of radiopharmaceutical in the chest port tubing. If there is concern for a fibrin sheath causing obstruction of administered medication through the chest port, interventional radiology consultation could also be considered to assess options for further management. Electronically signed by: Andressa Chaney MD (09/16/2019 5:53 PM) [id number]
== END ==
LOC: PETSC 08:40
PROVIDERS: ATTEND Family Medicine
DX: C34.31 Malignant neoplasm of lower lobe, right bronchus or lung (principal); C44.99 Other specified malignant neoplasm of skin, unspecified; R53.83 Other fatigue
CPT/HCPCS: 78815; A9552